=== PATIENT | female | born 1940 | race Caucasian/White ===

== ENCOUNTER → 2016-12-09 | Outpatient (REF) | payer MEDICARE, OTHER ==
[~2016-12-09] MED LIST: ALLO10TA PO; CALC600T7 PO; LISI10TA2 PO; LOVA10TA PO; METO-207 PO; MULTCAP PO; NEUR600T PO; PROTPAK PO; TYLE325T5 PO; ULTR50TA PO; [UNRECOGNIZED DRUG - OTHER] PO
[2016-12-09 12:28] LABS: MEAN CORPUSCULAR HEMOGLOBIN 33.8 pg (27.0-33.0); MEAN CORPUSCULAR HGB CONC 34.6 g/dl (32.0-36.5); MEAN CORPUSCULAR VOLUME 97.5 fl (80.0-96.0); RED CELL DISTRIBUTION WIDTH 12.6 % (11.5-14.5); WHITE BLOOD COUNT 8.6 K/mm3 (4.0-10.0)
[2016-12-09 12:54] LABS: ALBUMIN 3.8 GM/DL (3.2-5.2); ALBUMIN/GLOBULIN RATIO 1.23 (1.00-1.93); BILIRUBIN,TOTAL 0.4 MG/DL (0.2-1.0); CALCIUM LEVEL 9.7 MG/DL (8.8-10.2); CREATININE FOR GFR 1.94 MG/DL (0.55-1.02); GLOMERULAR FILTRATION RATE 26.6 (>39); POTASSIUM SERUM 4.9 MEQ/L (3.5-5.1); TOTAL PROTEIN 6.9 GM/DL (6.4-8.2)
== END ==
LOC: M SFHCPLAZ 08:03
PROVIDERS: ATTEND Internal Medicine
DX: R06.09 Other forms of dyspnea (principal); I10 Essential (primary) hypertension; E11.40 Type 2 diabetes mellitus with diabetic neuropathy, unspecified; E78.00 Pure hypercholesterolemia, unspecified

== ENCOUNTER → 2017-01-25 | Outpatient (CLI) | payer MEDICARE, OTHER ==
[~2017-01-25] MED LIST changes: -METO-207 PO; +METO1TAB7 PO; -ULTR50TA PO; +ULTR50TA8 PO
--- NOTE | 2017-01-25 11:12 | REP ---
LEFT KNEE SERIES: Five views. HISTORY: Medial knee pain for 4 days. No known injury. Question sprain. FINDINGS: There is mild patellofemoral and medial compartment osteoarthritic spurring. There is also nonarticular spurring at the superior pole of the patella at the quadriceps tendon insertion. No acute bony abnormality is seen. IMPRESSION: Medial and patellofemoral osteoarthritis. Nonarticular patellar spurring at the quadriceps tendon insertion. No acute bony abnormality. Signed by Campos Galeana MD 01/25/2017 04:02 P
== END ==
LOC: M WUC 10:36
PROVIDERS: ATTEND Physician Assistant
DX: M17.12 Unilateral primary osteoarthritis, left knee (principal); M25.762 Osteophyte, left knee

== ENCOUNTER → 2017-04-18 | Outpatient (REF) | payer MEDICARE, OTHER ==
[2017-04-18 12:57] LABS: ALBUMIN 4.1 GM/DL (3.2-5.2); ALBUMIN/GLOBULIN RATIO 1.24 (1.00-1.93); BILIRUBIN,TOTAL 0.4 MG/DL (0.2-1.0); CALCIUM LEVEL 10.5 MG/DL (8.8-10.2); CREATININE FOR GFR 2.32 MG/DL (0.55-1.02); GLOMERULAR FILTRATION RATE 21.7 (>39); POTASSIUM SERUM 5.1 MEQ/L (3.5-5.1); TOTAL PROTEIN 7.4 GM/DL (6.4-8.2); URIC ACID 7.5 MG/DL (2.6-6.0)
== END ==
LOC: M SFHCPLAZ 08:52
PROVIDERS: ATTEND Internal Medicine
DX: E11.40 Type 2 diabetes mellitus with diabetic neuropathy, unspecified (principal); E78.00 Pure hypercholesterolemia, unspecified; M10.9 Gout, unspecified

== ENCOUNTER → 2017-06-13 | Outpatient (REF) | payer MEDICARE, OTHER ==
[2017-06-13 14:36] LABS: CREATININE FOR GFR 2.11 MG/DL (0.55-1.02); GLOMERULAR FILTRATION RATE 24.2 (>39); POTASSIUM SERUM 4.8 MEQ/L (3.5-5.1)
== END ==
LOC: M SFHCPLAZ 11:23
PROVIDERS: ATTEND Internal Medicine
DX: N18.3 Chronic kidney disease, stage 3 (moderate) (principal)

== ENCOUNTER → 2017-09-21 | Outpatient (REF) | payer MEDICARE, OTHER ==
[2017-09-21 17:44] LABS: HEMATOCRIT 36.8 % (36.0-47.0); HEMOGLOBIN 12.5 g/dl (12.0-16.0); MEAN CORPUSCULAR HEMOGLOBIN 32.8 pg (27.0-33.0); MEAN CORPUSCULAR VOLUME 96.6 fl (80.0-96.0); PLATELET COUNT, AUTOMATED 254 10^3/uL (150-450); RED BLOOD COUNT 3.81 10^6/uL (4.00-5.40); WHITE BLOOD COUNT 8.9 10^3/uL (4.0-10.0)
[2017-09-21 18:01] LABS: ESTIMATED AVERAGE GLUCOSE 140 MG/DL (60-110); HEMOGLOBIN A1c 6.5 %; PTH INTACT 109.4 PG/ML (18.5-88.0)
[2017-09-21 21:01] LABS: ALBUMIN 4.1 GM/DL (3.2-5.2); ALBUMIN/GLOBULIN RATIO 1.32 (1.00-1.93); ALKALINE PHOSPHATASE 93 U/L (45-117); ALT/SGPT 38 U/L (12-78); ANION GAP 10 MEQ/L (8-16); AST/SGOT 44 U/L (7-37); BILIRUBIN,TOTAL 0.4 MG/DL (0.2-1.0); BLOOD UREA NITROGEN 36 MG/DL (7-18); CALCIUM LEVEL 9.3 MG/DL (8.8-10.2); CARBON DIOXIDE LEVEL 25 MEQ/L (21-32); CHLORIDE LEVEL 108 MEQ/L (98-107); CHOLESTEROL LEVEL 208 MG/DL (<200); CHOLESTEROL RISK RATIO 6.303 (<5); CREATININE FOR GFR 2.05 MG/DL (0.55-1.30); GLOMERULAR FILTRATION RATE 24.9 (>39); GLUCOSE, FASTING 142 MG/DL (70-100); HDL CHOLESTEROL 33 MG/DL (>40); MAGNESIUM LEVEL 2.1 MG/DL (1.8-2.4); NON-HDL-C 175 MG/DL; SODIUM LEVEL 143 MEQ/L (136-145); TOTAL PROTEIN 7.2 GM/DL (6.4-8.2); TRIGLYCERIDES LEVEL 444 MG/DL (<150)
[2017-09-21 21:08] LABS: POTASSIUM SERUM 5.3 MEQ/L (3.5-5.1)
== END ==
LOC: M SFHCPLAZ 12:00
DX: N18.3 Chronic kidney disease, stage 3 (moderate) (principal); G62.9 Polyneuropathy, unspecified; I12.9 Hypertensive chronic kidney disease with stage 1 through stage 4 chronic kidney disease, or unspecified chronic kidney disease; E11.40 Type 2 diabetes mellitus with diabetic neuropathy, unspecified; E78.00 Pure hypercholesterolemia, unspecified
CPT/HCPCS: 83735

== ENCOUNTER → 2017-10-26 | Outpatient (CLI) | payer MEDICARE, OTHER ==
[~2017-10-26] MED LIST changes: -ALLO10TA PO; -CALC600T7 PO; +HEPARIN 1,000 UNITS/ML 10ML VIAL (FOR RADIOLOGY& DIALYSIS ONLY) As Ordered; +ISOVUE-300 61% 50ML VIAL (Q9967) As Ordered; +LIDOCAINE 2% MDV 20 ML VIAL As Ordered; -LISI10TA2 PO; -LOVA10TA PO; -METO1TAB7 PO; +MIDAZOLAM INJ 2 MG/2 ML VIAL (J2250) As Ordered; -MULTCAP PO; -NEUR600T PO; -PROTPAK PO; -TYLE325T5 PO; -ULTR50TA8 PO; -[UNRECOGNIZED DRUG - OTHER] PO; +fentaNYL 100 MCG/2 ML INJECTION (J3010) As Ordered
== END | disposition home or self-care (01) ==
LOC: M IRPRO 07:25
DX: L97.519 Non-pressure chronic ulcer of other part of right foot with unspecified severity (principal); E11.22 Type 2 diabetes mellitus with diabetic chronic kidney disease; I12.9 Hypertensive chronic kidney disease with stage 1 through stage 4 chronic kidney disease, or unspecified chronic kidney disease; N18.9 Chronic kidney disease, unspecified
CPT/HCPCS: 36247

== ENCOUNTER 2017-11-09 16:36 | Observation (INO) | payer MEDICARE, OTHER ==
[2017-11-09 19:26] LABS: BASO # 0.1 10^3/uL (0.0-0.2); BASO % 0.4 % (0.0-1.0); EOS # 0.1 10^3/uL (0.0-0.50); EOS % 0.5 % (0.0-3.0); HEMATOCRIT 33.2 % (36.0-47.0); HEMOGLOBIN 11.8 g/dl (12.0-15.5); IMMATURE GRANULOCYTE % 0.5 % (0-3.0); LYMPH # 1.5 10^3/uL (1.5-4.5); MEAN CORPUSCULAR HEMOGLOBIN 34.1 pg (27.0-33.0); MEAN CORPUSCULAR HGB CONC 35.5 g/dl (32.0-36.5); MONO # 0.9 10^3/uL (0.0-0.8); MONO % 7.4 % (0.0-5.0); NEUTROPHILS # 9.6 10^3/uL (1.8-7.7); NEUTROPHILS % 79.2 % (36.0-66.0); PLATELET COUNT, AUTOMATED 249 10^3/uL (150-450); RED BLOOD COUNT 3.46 10^6/uL (4.00-5.40); RED CELL DISTRIBUTION WIDTH 12.9 % (11.5-14.5); WHITE BLOOD COUNT 12.1 10^3/uL (4.0-10.0)
[2017-11-09 19:39] LABS: ALBUMIN 3.6 GM/DL (3.2-5.2); ALBUMIN/GLOBULIN RATIO 0.95 (1.00-1.93); ALKALINE PHOSPHATASE 91 U/L (45-117); ALT/SGPT 30 U/L (12-78); ANION GAP 7 MEQ/L (8-16); AST/SGOT 30 U/L (7-37); BILIRUBIN,DIRECT < 0.1 MG/DL (0.0-0.2); BILIRUBIN,TOTAL 0.3 MG/DL (0.2-1.0); BLOOD UREA NITROGEN 55 MG/DL (7-18); CALCIUM LEVEL 8.9 MG/DL (8.8-10.2); CARBON DIOXIDE LEVEL 24 MEQ/L (21-32); CHLORIDE LEVEL 107 MEQ/L (98-107); CK-MB VALUE MASS 1.6 NG/ML (<3.6); CPK CREATINE PHOSPHOKINASE 75 U/L (26-192); CREATININE FOR GFR 2.66 MG/DL (0.55-1.30); GLOMERULAR FILTRATION RATE 18.5 (>39); GLUCOSE, FASTING 181 MG/DL (70-100); MB/CK RELATIVE INDEX 2.13 (< OR =4); POTASSIUM SERUM 4.4 MEQ/L (3.5-5.1); SODIUM LEVEL 138 MEQ/L (136-145); TOTAL PROTEIN 7.4 GM/DL (6.4-8.2); TROPONIN I < 0.02 NG/ML (< 0.10)
[2017-11-09] MEDS: NS 500 ML IV ×2 (19:54)
[2017-11-09] MEDS: LORazepam 0.5 MG TAB PO ×2 (21:28)
[2017-11-09] MEDS ORDERED: ONDANSETRON 4MG/2ML VIAL (J2405) IV ×2 (22:15)
[2017-11-09] MEDS: NS 1,000 ML IV ×2 (23:33)
[2017-11-10 00:01] LABS: CPK CREATINE PHOSPHOKINASE 82 U/L (26-192); TROPONIN I < 0.02 NG/ML (< 0.10)
[2017-11-10 00:07] LABS: CK-MB VALUE MASS 1.6 NG/ML (<3.6); MB/CK RELATIVE INDEX 1.95 (< OR =4)
[2017-11-10 06:22] LABS: BASO % 0.4 % (0.0-1.0); EOS # 0.2 10^3/uL (0.0-0.50); EOS % 2.3 % (0.0-3.0); HEMATOCRIT 27.7 % (36.0-47.0); IMMATURE GRANULOCYTE % 0.2 % (0-3.0); LYMPH # 2.3 10^3/uL (1.5-4.5); LYMPH % 27.5 % (24.0-44.0); MEAN CORPUSCULAR HEMOGLOBIN 33.2 pg (27.0-33.0); MEAN CORPUSCULAR HGB CONC 34.7 g/dl (32.0-36.5); MEAN CORPUSCULAR VOLUME 95.8 fl (80.0-96.0); MONO # 0.9 10^3/uL (0.0-0.8); MONO % 10.2 % (0.0-5.0); NEUTROPHILS % 59.4 % (36.0-66.0); PLATELET COUNT, AUTOMATED 196 10^3/uL (150-450); RED BLOOD COUNT 2.89 10^6/uL (4.00-5.40); RED CELL DISTRIBUTION WIDTH 12.6 % (11.5-14.5); WHITE BLOOD COUNT 8.3 10^3/uL (4.0-10.0)
[2017-11-10 06:33] LABS: HEMOGLOBIN 9.6 g/dl (12.0-15.5)
[2017-11-10 06:36] LABS: ANION GAP 8 MEQ/L (8-16); BLOOD UREA NITROGEN 52 MG/DL (7-18); CALCIUM LEVEL 8.6 MG/DL (8.8-10.2); CARBON DIOXIDE LEVEL 22 MEQ/L (21-32); CHLORIDE LEVEL 111 MEQ/L (98-107); CK-MB VALUE MASS 2.4 NG/ML (<3.6); CPK CREATINE PHOSPHOKINASE 161 U/L (26-192); CREATININE FOR GFR 2.18 MG/DL (0.55-1.30); GLOMERULAR FILTRATION RATE 23.2 (>39); GLUCOSE, FASTING 95 MG/DL (70-100); MB/CK RELATIVE INDEX 1.49 (< OR =4); POTASSIUM SERUM 4.2 MEQ/L (3.5-5.1); SODIUM LEVEL 141 MEQ/L (136-145); TROPONIN I < 0.02 NG/ML (< 0.10)
[2017-11-10] MEDS ORDERED: DICYCLOMINE 10 MG CAP PO ×2 (07:45)
[2017-11-10] MEDS: LACTOBACILLUS ACIDOPHILUS CAP (BACID) PO ×2 (09:50)
[2017-11-10] MEDS: CitaloPRAM (CeleXA) 20 MG TAB PO ×2 (09:50)
[2017-11-10] MEDS: GABAPENTIN 400 MG CAP PO ×4 (09:50→21:20)
[2017-11-10] MEDS: ALLOPURINOL 100 MG TAB PO ×2 (09:51)
[2017-11-10] MEDS: PANTOPRAZOLE 40MG TAB (PROTONIX) PO ×2 (09:51)
[2017-11-10] MEDS: METOPROLOL SUCC (TopROL XL) 50MG **XL** TAB PO ×2 (09:51)
[2017-11-10] MEDS: MAGNESIUM OXIDE 400 MG TAB (MAG-OX) PO ×2 (09:51)
[2017-11-10] MEDS: HEPARIN SOD (PORCINE) 5000 UNITS/ML VIAL SC ×4 (09:51→21:21)
[2017-11-10] MEDS: CYANOCOBALAMIN 500 MCG TAB PO ×2 (09:51)
[2017-11-10] MEDS: ATORVASTATIN 20 MG TAB PO ×2 (09:51)
[2017-11-10] MEDS: NS 1,000 ML IV ×4 (11:35→21:22)
[2017-11-10] MEDS: LATANOPROST 0.005% OPHTH SOLN 2.5 ML OU ×2 (21:21)
[2017-11-10 22:04] LABS: APPEARANCE, URINE HAZY (CLEAR); BACTERIA, URINE AUTO 1+ (NEGATIVE); BILIRUBIN, URINE AUTO NEGATIVE (NEGATIVE); BLOOD, URINE BLOOD NEGATIVE (NEGATIVE); COLOR, URINE YELLOW (YELLOW); GLUCOSE, URINE (UA) AUTO NEGATIVE (NEGATIVE); KETONE, URINE AUTO NEGATIVE (NEGATIVE); LEUKOCYTE ESTERASE, URINE AUTO 3+ (NEGATIVE); MUCUS, URINE SMALL (NEGATIVE); NITRITE, URINE AUTO NEGATIVE (NEGATIVE); PROTEIN, URINE AUTO NEGATIVE (NEGATIVE); RBC, URINE AUTO 2 /HPF (0-3); SPECIFIC GRAVITY URINE AUTO 1.009 (1.002-1.035); SQUAMOUS EPITHELIAL CELL UR AU 1 /HPF (0-6); UROBILINOGEN, URINE AUTO 0.2 mg/dL (0.0-2.0); WBC, URINE AUTO 37 /HPF (0-3)
[2017-11-11 05:58] LABS: BASO % 0.4 % (0.0-1.0); EOS # 0.2 10^3/uL (0.0-0.50); EOS % 2.8 % (0.0-3.0); HEMATOCRIT 27.7 % (36.0-47.0); HEMOGLOBIN 9.6 g/dl (12.0-15.5); IMMATURE GRANULOCYTE % 0.4 % (0-3.0); LYMPH # 1.7 10^3/uL (1.5-4.5); LYMPH % 29.2 % (24.0-44.0); MEAN CORPUSCULAR HGB CONC 34.7 g/dl (32.0-36.5); MEAN CORPUSCULAR VOLUME 95.2 fl (80.0-96.0); MONO # 0.6 10^3/uL (0.0-0.8); MONO % 11.2 % (0.0-5.0); NEUTROPHILS # 3.2 10^3/uL (1.8-7.7); PLATELET COUNT, AUTOMATED 179 10^3/uL (150-450); RED BLOOD COUNT 2.91 10^6/uL (4.00-5.40); RED CELL DISTRIBUTION WIDTH 12.6 % (11.5-14.5); WHITE BLOOD COUNT 5.7 10^3/uL (4.0-10.0)
[2017-11-11 06:26] LABS: ANION GAP 7 MEQ/L (8-16); BLOOD UREA NITROGEN 36 MG/DL (7-18); CALCIUM LEVEL 8.7 MG/DL (8.8-10.2); CARBON DIOXIDE LEVEL 22 MEQ/L (21-32); CHLORIDE LEVEL 114 MEQ/L (98-107); CREATININE FOR GFR 1.72 MG/DL (0.55-1.30); GLOMERULAR FILTRATION RATE 30.5 (>39); GLUCOSE, FASTING 93 MG/DL (70-100); POTASSIUM SERUM 4.2 MEQ/L (3.5-5.1); SODIUM LEVEL 143 MEQ/L (136-145)
[2017-11-11] MEDS: CYANOCOBALAMIN 500 MCG TAB PO ×2 (09:33)
[2017-11-11] MEDS: ATORVASTATIN 20 MG TAB PO ×2 (09:33)
[2017-11-11] MEDS: LACTOBACILLUS ACIDOPHILUS CAP (BACID) PO ×2 (09:34)
[2017-11-11] MEDS: PANTOPRAZOLE 40MG TAB (PROTONIX) PO ×2 (09:34)
[2017-11-11] MEDS: CitaloPRAM (CeleXA) 20 MG TAB PO ×2 (09:34)
[2017-11-11] MEDS: MAGNESIUM OXIDE 400 MG TAB (MAG-OX) PO ×2 (09:34)
[2017-11-11] MEDS: GABAPENTIN 400 MG CAP PO ×2 (09:34)
[2017-11-11] MEDS: ALLOPURINOL 100 MG TAB PO ×2 (09:34)
[2017-11-11] MEDS: HEPARIN SOD (PORCINE) 5000 UNITS/ML VIAL SC ×2 (09:35)
== END 2017-11-11 12:05 | disposition home or self-care (01) ==
LOC: M MSPAV 11-10 01:30 → M ED 16:36 → M ED INP 22:04
DX: I95.1 Orthostatic hypotension (principal); E86.0 Dehydration; N17.9 Acute kidney failure, unspecified; N18.4 Chronic kidney disease, stage 4 (severe); I12.9 Hypertensive chronic kidney disease with stage 1 through stage 4 chronic kidney disease, or unspecified chronic kidney disease; R00.1 Bradycardia, unspecified; R26.89 Other abnormalities of gait and mobility; E78.4 Other hyperlipidemia; M10.9 Gout, unspecified; K58.8 Other irritable bowel syndrome; I73.9 Peripheral vascular disease, unspecified; G90.09 Other idiopathic peripheral autonomic neuropathy; K21.9 Gastro-esophageal reflux disease without esophagitis; F41.9 Anxiety disorder, unspecified; F32.9 Major depressive disorder, single episode, unspecified; K57.30 Diverticulosis of large intestine without perforation or abscess without bleeding; Z79.899 Other long term (current) drug therapy; Z88.2 Allergy status to sulfonamides; Z88.8 Allergy status to other drugs, medicaments and biological substances; F17.210 Nicotine dependence, cigarettes, uncomplicated
CPT/HCPCS: 71046

== ENCOUNTER → 2017-11-21 | Outpatient (REF) | payer MEDICARE, OTHER ==
[2017-11-21 15:59] LABS: APPEARANCE, URINE MANUAL HAZY (CLEAR)
[2017-11-21 16:00] LABS: BILIRUBIN, URINE MANUAL NEGATIVE (NEGATIVE); BLOOD URINE MANUAL TRACE (NEGATIVE); COLOR, URINE MANUAL YELLOW (YELLOW); GLUCOSE, URINE (UA) MANUAL TRACE(50 MG/DL) mg/dL (NEGATIVE); KETONE, URINE MANUAL NEGATIVE (NEGATIVE); LEUKOCYTE ESTERASE, URINE MAN POSITIVE (NEGATIVE); MICROSCOPIC INDICATED? MAN YES (NO); NITRITE, URINE MANUAL NEGATIVE (NEGATIVE); PROTEIN, URINE MANUAL NEGATIVE (NEGATIVE); SPECIFIC GRAVITY,URINE MANUAL 1.025 (1.002-1.035); UROBILINOGEN, URINE MANUAL NORMAL (NORMAL)
[2017-11-21 16:01] LABS: HEMATOCRIT 31.2 % (36.0-47.0); HEMOGLOBIN 10.9 g/dl (12.0-15.5); MEAN CORPUSCULAR HEMOGLOBIN 33.1 pg (27.0-33.0); MEAN CORPUSCULAR HGB CONC 34.9 g/dl (32.0-36.5); MEAN CORPUSCULAR VOLUME 94.8 fl (80.0-96.0); PLATELET COUNT, AUTOMATED 243 10^3/uL (150-450); RBC, URINE 0-1 /hpf (0-3); RED BLOOD COUNT 3.29 10^6/uL (4.00-5.40); RED CELL DISTRIBUTION WIDTH 13.3 % (11.5-14.5); SQUAMOUS EPITHELIAL CELL URINE SMALL AMOUNT /hpf (SMALL AMT); WHITE BLOOD COUNT 8.7 10^3/uL (4.0-10.0)
[2017-11-21 16:02] LABS: BACTERIA, URINE LARGE AMOUNT; CALCIUM OXALATE CRYSTALS,URINE SMALL AMOUNT /hpf; HYALINE CAST, URINE NONE SEEN /lpf (0-1); MICROSCOPIC EXAM PERFORMED
[2017-11-21 16:17] LABS: ANION GAP 10 MEQ/L (8-16); BLOOD UREA NITROGEN 20 MG/DL (7-18); CALCIUM LEVEL 9.6 MG/DL (8.8-10.2); CARBON DIOXIDE LEVEL 23 MEQ/L (21-32); CHLORIDE LEVEL 110 MEQ/L (98-107); CREATININE FOR GFR 1.75 MG/DL (0.55-1.30); GLOMERULAR FILTRATION RATE 29.9 (>39); GLUCOSE, FASTING 115 MG/DL (70-100); POTASSIUM SERUM 4.3 MEQ/L (3.5-5.1); SODIUM LEVEL 143 MEQ/L (136-145)
== END ==
LOC: M SFHCPLAZ 13:22
DX: Z87.448 Personal history of other diseases of urinary system (principal); Z79.899 Other long term (current) drug therapy
CPT/HCPCS: 80048

== ENCOUNTER → 2017-11-23 | Outpatient (REF) | payer MEDICARE, OTHER | LOC: M SFHCPLAZ 12:22 | DX: R10.9 Unspecified abdominal pain (principal) | CPT/HCPCS: 87186 ==

== ENCOUNTER 2017-11-26 08:58 | Emergency (ER) | payer MEDICARE, OTHER ==
[2017-11-26] MEDS: NORCO, ANEXSIA 5/325MG TABLET (HYDROcodone/ACETAMINOPHEN) PO (09:54)
[2017-11-26 10:01] LABS: BASO % 0.2 % (0.0-1.0); EOS % 0.2 % (0.0-3.0); HEMATOCRIT 32.8 % (36.0-47.0); HEMOGLOBIN 11.8 g/dl (12.0-15.5); IMMATURE GRANULOCYTE % 0.4 % (0-3.0); LYMPH % 8.6 % (24.0-44.0); MEAN CORPUSCULAR HEMOGLOBIN 33.3 pg (27.0-33.0); MEAN CORPUSCULAR VOLUME 92.7 fl (80.0-96.0); MONO # 0.6 10^3/uL (0.0-0.8); MONO % 5.3 % (0.0-5.0); NEUTROPHILS # 9.4 10^3/uL (1.8-7.7); NEUTROPHILS % 85.3 % (36.0-66.0); PLATELET COUNT, AUTOMATED 247 10^3/uL (150-450); RED BLOOD COUNT 3.54 10^6/uL (4.00-5.40); RED CELL DISTRIBUTION WIDTH 13.1 % (11.5-14.5)
[2017-11-26 10:06] LABS: AMORPHOUS SEDIMENT RFX SMALL (NEGATIVE); KETONE, URINE AUTO RFX TRACE mg/dL (NEGATIVE); MUCUS, URINE RFX SMALL (NEGATIVE); NITRITE, URINE AUTO RFX NEGATIVE (NEGATIVE); RBC, URINE AUTO RFX 2 /HPF (0-3); SPECIFIC GRAVITY UR AUTO RFX 1.017 (1.002-1.035); SQUAM EPITHELIAL CELL UR AURFX 2 /HPF (0-6); WBC, URINE AUTO RFX 1 /HPF (0-3)
[2017-11-26 10:17] LABS: LEUKOCYTE ESTERASE UR AUTO RFX 1+ (NEGATIVE)
[2017-11-26 10:24] LABS: ANION GAP 12 MEQ/L (8-16); BLOOD UREA NITROGEN 27 MG/DL (7-18); CALCIUM LEVEL 9.2 MG/DL (8.8-10.2); CARBON DIOXIDE LEVEL 20 MEQ/L (21-32); CHLORIDE LEVEL 108 MEQ/L (98-107); CREATININE FOR GFR 1.71 MG/DL (0.55-1.30); GLOMERULAR FILTRATION RATE 30.7 (>39); GLUCOSE, FASTING 140 MG/DL (70-100); POTASSIUM SERUM 4.2 MEQ/L (3.5-5.1); SODIUM LEVEL 140 MEQ/L (136-145)
[2017-11-26] MEDS ORDERED: KETOROLAC 30 MG/ML VIAL (J1885) IV (11:45)
== END 2017-11-26 12:00 | disposition home or self-care (01) ==
LOC: M ED 08:58
DX: R10.9 Unspecified abdominal pain (principal); N28.1 Cyst of kidney, acquired; N20.0 Calculus of kidney; Z87.440 Personal history of urinary (tract) infections; G62.9 Polyneuropathy, unspecified; K58.9 Irritable bowel syndrome, unspecified; N18.4 Chronic kidney disease, stage 4 (severe); K57.90 Diverticulosis of intestine, part unspecified, without perforation or abscess without bleeding; Z72.0 Tobacco use; Z79.82 Long term (current) use of aspirin; Z79.899 Other long term (current) drug therapy; Z88.5 Allergy status to narcotic agent; Z88.2 Allergy status to sulfonamides; Z88.8 Allergy status to other drugs, medicaments and biological substances

== ENCOUNTER 2017-11-28 11:30 | Inpatient (IN) | payer MEDICARE, OTHER ==
[2017-11-28 11:11] LABS: BASO % 0.4 % (0.0-1.0); EOS % 0.3 % (0.0-3.0); HEMATOCRIT 32.2 % (36.0-47.0); HEMOGLOBIN 11.5 g/dl (12.0-15.5); IMMATURE GRANULOCYTE % 0.5 % (0-3.0); LYMPH % 10.3 % (24.0-44.0); MEAN CORPUSCULAR HEMOGLOBIN 33.5 pg (27.0-33.0); MEAN CORPUSCULAR HGB CONC 35.7 g/dl (32.0-36.5); MEAN CORPUSCULAR VOLUME 93.9 fl (80.0-96.0); MONO # 0.5 10^3/uL (0.0-0.8); MONO % 5.4 % (0.0-5.0); NEUTROPHILS # 7.6 10^3/uL (1.8-7.7); NEUTROPHILS % 83.1 % (36.0-66.0); PLATELET COUNT, AUTOMATED 223 10^3/uL (150-450); RED BLOOD COUNT 3.43 10^6/uL (4.00-5.40); RED CELL DISTRIBUTION WIDTH 13.2 % (11.5-14.5); WHITE BLOOD COUNT 9.2 10^3/uL (4.0-10.0)
[2017-11-28 11:31] LABS: ALT/SGPT 32 U/L (12-78); ANION GAP 11 MEQ/L (8-16); AST/SGOT 45 U/L (7-37); BLOOD UREA NITROGEN 27 MG/DL (7-18); CALCIUM LEVEL 9.3 MG/DL (8.8-10.2); CARBON DIOXIDE LEVEL 19 MEQ/L (21-32); CHLORIDE LEVEL 109 MEQ/L (98-107); GLUCOSE, FASTING 152 MG/DL (70-100); POTASSIUM SERUM 4.2 MEQ/L (3.5-5.1); SODIUM LEVEL 139 MEQ/L (136-145)
[2017-11-28 11:32] LABS: ALBUMIN 3.8 GM/DL (3.2-5.2); ALBUMIN/GLOBULIN RATIO 1.06 (1.00-1.93); ALKALINE PHOSPHATASE 89 U/L (45-117); AMYLASE 40 U/L (25-115); BILIRUBIN,DIRECT 0.1 MG/DL (0.0-0.2); BILIRUBIN,TOTAL 0.6 MG/DL (0.2-1.0); CPK CREATINE PHOSPHOKINASE 201 U/L (26-192); LIPASE 417 U/L (73-393); SALICYLATE LEVEL 5.1 MG/DL (5.0-30.0); TOTAL PROTEIN 7.4 GM/DL (6.4-8.2); TROPONIN I < 0.02 NG/ML (< 0.10)
[2017-11-28 11:41] LABS: CK-MB VALUE MASS 2.2 NG/ML (<3.6); MB/CK RELATIVE INDEX 1.09 (< OR =4); POS COUNT POS FLAG
[2017-11-28 11:48] LABS: ACETAMINOPHEN LEVEL < 2.0 UG/ML (10.0-30.0); ETHYL ALCOHOL (ETHANOL) < 0.003 % (0.000-0.010)
[2017-11-28] MEDS: NS 500 ML IV (11:49)
[2017-11-28 11:57] LABS: ABG BASE EXCESS -0.3 (-2.0-2.0); ABG HCO3 22.4 MEQ/L (22.0-26.0); ABG O2 SATURATION 96.5 % (95.0-99.0); ABG PARTIAL PRESSURE CO2 30.6 mmHg (35.0-45.0); ABG PARTIAL PRESSURE O2 83.1 mmHg (75.0-100.0); ABG STANDARD HCO3 24.2 MEQ/L (22.0-26.0); ABG TOTAL CO2 23.3 MEQ/L (23.0-31.0); ABG pH (ARTERIAL) 7.482 UNITS (7.350-7.450)
[2017-11-28 12:29] LABS: AMPHETAMINES LEVEL URINE NEGATIVE (NEGATIVE); BARBITURATES URINE NEGATIVE (NEGATIVE); BENZODIAZEPINES URINE NEGATIVE (NEGATIVE); CANNABINOIDS URINE NEGATIVE (NEGATIVE); COCAINE METABOLITE URINE NEGATIVE (NEGATIVE); METHADONE URINE NEGATIVE (NEGATIVE); OPIATES URINE NEGATIVE (NEGATIVE); PHENCYCLIDINE URINE NEGATIVE (NEGATIVE)
[2017-11-28 12:42] LABS: AMMONIA 36 uMOL/L (<32)
[2017-11-28 13:12] LABS: APPEARANCE, URINE MANUAL CLEAR (CLEAR); COLOR, URINE MANUAL YELLOW (YELLOW)
[2017-11-28 13:13] LABS: BILIRUBIN, URINE MANUAL NEGATIVE (NEGATIVE); BLOOD URINE MANUAL NEGATIVE (NEGATIVE); GLUCOSE, URINE (UA) MANUAL NEGATIVE (NEGATIVE); KETONE, URINE MANUAL 2+ mg/dL (NEGATIVE); LEUKOCYTE ESTERASE, URINE MAN POSITIVE (NEGATIVE); MICROSCOPIC INDICATED? MAN YES (NO); NITRITE, URINE MANUAL NEGATIVE (NEGATIVE); PROTEIN, URINE MANUAL TRACE mg/dL (NEGATIVE); SPECIFIC GRAVITY,URINE MANUAL 1.015 (1.002-1.035); UROBILINOGEN, URINE MANUAL NORMAL (NORMAL)
[2017-11-28 13:39] LABS: BACTERIA, URINE SMALL AMOUNT; HYALINE CAST, URINE 0-1 /lpf (0-1); RBC, URINE NONE SEEN /hpf (0-3); SQUAMOUS EPITHELIAL CELL URINE SMALL AMOUNT /hpf (SMALL AMT)
[2017-11-28 13:40] LABS: MICROSCOPIC EXAM PERFORMED
[2017-11-28] MEDS: NS 1,000 ML IV (13:45)
[2017-11-28] MEDS ORDERED: DEXTROSE 50% 50 ML SYRINGE IV (16:15)
[2017-11-28] MEDS ORDERED: GLUCOSE 4 GM CHEW TABLET PO (16:15)
[2017-11-28] MEDS ORDERED: GLUCAGON FOR INJ 1 MG VIAL (J1610) SC (16:15)
[2017-11-28] MEDS: ONDANSETRON 4MG/2ML VIAL (J2405) IV (16:46)
[2017-11-28] MEDS: cefTRIAXone SOD 1 GM in D5W MINI-BAG PLUS 50 ML IV (16:46)
[2017-11-28] MEDS: HumaLOG INSULIN (NovoLOG) PER UNIT SC ×2 (17:30→20:44)
[2017-11-28 20:40] LABS: BEDSIDE GLUCOSE 121 MG/DL (83-110)
[2017-11-28 20:40] LABS: BEDSIDE GLUCOSE 178 MG/DL (83-110)
[2017-11-28 20:41] LABS: BEDSIDE GLUCOSE 116 MG/DL (83-110)
[2017-11-28] MEDS: amLODIPine 5 MG TAB PO (21:08)
[2017-11-28] MEDS: HEPARIN SOD (PORCINE) 5000 UNITS/ML VIAL SC (21:09)
[2017-11-28] MEDS: GABAPENTIN 300 MG CAP PO (21:09)
[2017-11-28] MEDS: **hydrALAZINE** 10 MG TAB PO (22:00)
[2017-11-28] MEDS: ACETAMINOPHEN TAB 650MG DOSE (2X325MG) PO (23:13)
[2017-11-29] MEDS: **hydrALAZINE** 10 MG TAB PO ×3 (04:52→21:08)
[2017-11-29] MEDS: HEPARIN SOD (PORCINE) 5000 UNITS/ML VIAL SC ×3 (05:19→21:08)
[2017-11-29 07:05] LABS: HEMATOCRIT 30.1 % (36.0-47.0); HEMOGLOBIN 10.2 g/dl (12.0-15.5); MEAN CORPUSCULAR HEMOGLOBIN 32.7 pg (27.0-33.0); MEAN CORPUSCULAR HGB CONC 33.9 g/dl (32.0-36.5); MEAN CORPUSCULAR VOLUME 96.5 fl (80.0-96.0); PLATELET COUNT, AUTOMATED 210 10^3/uL (150-450); RED BLOOD COUNT 3.12 10^6/uL (4.00-5.40); RED CELL DISTRIBUTION WIDTH 13.5 % (11.5-14.5); WHITE BLOOD COUNT 5.9 10^3/uL (4.0-10.0)
[2017-11-29 07:23] LABS: ALBUMIN 3.4 GM/DL (3.2-5.2); ALBUMIN/GLOBULIN RATIO 1.21 (1.00-1.93); ALKALINE PHOSPHATASE 79 U/L (45-117); ALT/SGPT 26 U/L (12-78); ANION GAP 6 MEQ/L (8-16); AST/SGOT 30 U/L (7-37); BILIRUBIN,TOTAL 0.3 MG/DL (0.2-1.0); BLOOD UREA NITROGEN 24 MG/DL (7-18); CALCIUM LEVEL 8.6 MG/DL (8.8-10.2); CARBON DIOXIDE LEVEL 25 MEQ/L (21-32); CHLORIDE LEVEL 112 MEQ/L (98-107); CREATININE FOR GFR 1.52 MG/DL (0.55-1.30); GLOMERULAR FILTRATION RATE 35.2 (>39); GLUCOSE, FASTING 97 MG/DL (70-100); MAGNESIUM LEVEL 1.9 MG/DL (1.8-2.4); POTASSIUM SERUM 4.5 MEQ/L (3.5-5.1); SODIUM LEVEL 143 MEQ/L (136-145); TOTAL PROTEIN 6.2 GM/DL (6.4-8.2)
[2017-11-29] MEDS: HumaLOG INSULIN (NovoLOG) PER UNIT SC ×4 (07:30→20:11)
[2017-11-29] MEDS: LACTOBACILLUS ACIDOPHILUS CAP (BACID) PO (08:07)
[2017-11-29] MEDS: ALLOPURINOL 100 MG TAB PO (08:09)
[2017-11-29] MEDS: ASPIRIN 81 MG ENTERIC TAB PO (08:09)
[2017-11-29] MEDS: ATORVASTATIN 20 MG TAB PO (08:10)
[2017-11-29] MEDS: CitaloPRAM (CeleXA) 20 MG TAB PO (08:11)
[2017-11-29] MEDS: PANTOPRAZOLE 40MG TAB (PROTONIX) PO (08:11)
[2017-11-29] MEDS: GABAPENTIN 300 MG CAP PO ×2 (08:11→21:07)
[2017-11-29 11:31] LABS: BEDSIDE GLUCOSE 125 MG/DL (83-110)
[2017-11-29] MEDS: ACETAMINOPHEN TAB 650MG DOSE (2X325MG) PO ×2 (16:07→21:09)
[2017-11-29] MEDS: cefTRIAXone SOD 1 GM in D5W MINI-BAG PLUS 50 ML IV (16:17)
[2017-11-29 16:36] LABS: BEDSIDE GLUCOSE 112 MG/DL (83-110)
[2017-11-29] MEDS ORDERED: SLF 3 ML SYR IV (19:00)
[2017-11-29] MEDS: SLF 3 ML SYR IV (21:08)
[2017-11-29] MEDS: ISOSORBIDE DIN. (ISORDIL) 20 MG TAB PO (23:50)
[2017-11-30] MEDS: HEPARIN SOD (PORCINE) 5000 UNITS/ML VIAL SC ×3 (05:27→21:27)
[2017-11-30] MEDS: **hydrALAZINE** 10 MG TAB PO (05:28)
[2017-11-30] MEDS: SLF 3 ML SYR IV ×3 (05:28→21:27)
[2017-11-30] MEDS: ISOSORBIDE DIN. (ISORDIL) 20 MG TAB PO (05:28)
[2017-11-30 06:23] LABS: HEMATOCRIT 29.4 % (36.0-47.0); HEMOGLOBIN 10.4 g/dl (12.0-15.5); MEAN CORPUSCULAR HEMOGLOBIN 33.3 pg (27.0-33.0); MEAN CORPUSCULAR HGB CONC 35.4 g/dl (32.0-36.5); MEAN CORPUSCULAR VOLUME 94.2 fl (80.0-96.0); PLATELET COUNT, AUTOMATED 226 10^3/uL (150-450); RED BLOOD COUNT 3.12 10^6/uL (4.00-5.40); RED CELL DISTRIBUTION WIDTH 13.1 % (11.5-14.5); WHITE BLOOD COUNT 6.5 10^3/uL (4.0-10.0)
[2017-11-30 06:45] LABS: ALBUMIN 3.1 GM/DL (3.2-5.2); ALBUMIN/GLOBULIN RATIO 0.97 (1.00-1.93); ALKALINE PHOSPHATASE 69 U/L (45-117); ALT/SGPT 24 U/L (12-78); ANION GAP 7 MEQ/L (8-16); AST/SGOT 28 U/L (7-37); BILIRUBIN,TOTAL 0.3 MG/DL (0.2-1.0); BLOOD UREA NITROGEN 23 MG/DL (7-18); CALCIUM LEVEL 8.8 MG/DL (8.8-10.2); CARBON DIOXIDE LEVEL 24 MEQ/L (21-32); CHLORIDE LEVEL 109 MEQ/L (98-107); CREATININE FOR GFR 1.39 MG/DL (0.55-1.30); GLUCOSE, FASTING 105 MG/DL (70-100); MAGNESIUM LEVEL 1.8 MG/DL (1.8-2.4); POTASSIUM SERUM 3.9 MEQ/L (3.5-5.1); SODIUM LEVEL 140 MEQ/L (136-145); TOTAL PROTEIN 6.3 GM/DL (6.4-8.2)
[2017-11-30] MEDS ORDERED: ISOVUE-370 76% 100ML VIAL (Q9967) As Ordered (07:17)
[2017-11-30] MEDS: HumaLOG INSULIN (NovoLOG) PER UNIT SC ×4 (07:30→20:32)
[2017-11-30 08:27] LABS: BEDSIDE GLUCOSE 136 MG/DL (83-110)
[2017-11-30] MEDS: ASPIRIN 81 MG ENTERIC TAB PO (08:56)
[2017-11-30] MEDS: ATORVASTATIN 20 MG TAB PO (08:56)
[2017-11-30] MEDS: GABAPENTIN 300 MG CAP PO ×2 (08:56→21:27)
[2017-11-30] MEDS: CitaloPRAM (CeleXA) 20 MG TAB PO (08:56)
[2017-11-30] MEDS: LACTOBACILLUS ACIDOPHILUS CAP (BACID) PO (08:56)
[2017-11-30] MEDS: PANTOPRAZOLE 40MG TAB (PROTONIX) PO (08:56)
[2017-11-30] MEDS: amLODIPine 5 MG TAB PO (08:57)
[2017-11-30] MEDS: ALLOPURINOL 100 MG TAB PO (08:57)
[2017-11-30 11:41] LABS: BEDSIDE GLUCOSE 124 MG/DL (83-110)
[2017-11-30] MEDS: **hydrALAZINE HCL** 25 MG TAB PO ×2 (14:30→21:27)
[2017-11-30] MEDS: ISOSORBIDE DIN. (ISORDIL) 30 MG TAB PO ×2 (14:30→21:27)
[2017-11-30] MEDS: ACETAMINOPHEN TAB 650MG DOSE (2X325MG) PO ×2 (14:30→19:54)
[2017-11-30 16:33] LABS: BEDSIDE GLUCOSE 99 MG/DL (83-110)
[2017-11-30] MEDS: cefTRIAXone SOD 1 GM in D5W MINI-BAG PLUS 50 ML IV (17:18)
[2017-11-30 19:54] LABS: BEDSIDE GLUCOSE 151 MG/DL (83-110)
[2017-12-01] MEDS: **hydrALAZINE HCL** 25 MG TAB PO ×3 (06:21→21:34)
[2017-12-01] MEDS: ISOSORBIDE DIN. (ISORDIL) 30 MG TAB PO (06:21)
[2017-12-01] MEDS: HEPARIN SOD (PORCINE) 5000 UNITS/ML VIAL SC ×3 (06:21→21:35)
[2017-12-01] MEDS: ACETAMINOPHEN TAB 650MG DOSE (2X325MG) PO ×4 (06:22→22:40)
[2017-12-01] MEDS: SLF 3 ML SYR IV ×3 (06:24→21:35)
[2017-12-01 06:44] LABS: HEMATOCRIT 29.4 % (36.0-47.0); HEMOGLOBIN 10.4 g/dl (12.0-15.5); MEAN CORPUSCULAR HEMOGLOBIN 33.3 pg (27.0-33.0); MEAN CORPUSCULAR HGB CONC 35.4 g/dl (32.0-36.5); MEAN CORPUSCULAR VOLUME 94.2 fl (80.0-96.0); PLATELET COUNT, AUTOMATED 220 10^3/uL (150-450); RED BLOOD COUNT 3.12 10^6/uL (4.00-5.40); RED CELL DISTRIBUTION WIDTH 13.2 % (11.5-14.5); WHITE BLOOD COUNT 8.4 10^3/uL (4.0-10.0)
[2017-12-01 07:11] LABS: ALBUMIN 3.2 GM/DL (3.2-5.2); ALKALINE PHOSPHATASE 71 U/L (45-117); ALT/SGPT 23 U/L (12-78); ANION GAP 7 MEQ/L (8-16); AST/SGOT 24 U/L (7-37); BILIRUBIN,TOTAL 0.2 MG/DL (0.2-1.0); BLOOD UREA NITROGEN 22 MG/DL (7-18); CALCIUM LEVEL 8.8 MG/DL (8.8-10.2); CARBON DIOXIDE LEVEL 24 MEQ/L (21-32); CHLORIDE LEVEL 111 MEQ/L (98-107); CREATININE FOR GFR 1.61 MG/DL (0.55-1.30); GLOMERULAR FILTRATION RATE 32.9 (>39); GLUCOSE, FASTING 100 MG/DL (70-100); MAGNESIUM LEVEL 1.9 MG/DL (1.8-2.4); SODIUM LEVEL 142 MEQ/L (136-145); TOTAL PROTEIN 6.4 GM/DL (6.4-8.2)
[2017-12-01] MEDS: HumaLOG INSULIN (NovoLOG) PER UNIT SC ×4 (07:30→21:33)
[2017-12-01] MEDS: ATORVASTATIN 20 MG TAB PO (08:40)
[2017-12-01] MEDS: PANTOPRAZOLE 40MG TAB (PROTONIX) PO (08:40)
[2017-12-01] MEDS: ALLOPURINOL 100 MG TAB PO (08:40)
[2017-12-01] MEDS: LACTOBACILLUS ACIDOPHILUS CAP (BACID) PO (08:40)
[2017-12-01] MEDS: CitaloPRAM (CeleXA) 20 MG TAB PO (08:40)
[2017-12-01] MEDS: amLODIPine 5 MG TAB PO (08:40)
[2017-12-01] MEDS: ASPIRIN 81 MG ENTERIC TAB PO (08:40)
[2017-12-01] MEDS: GABAPENTIN 300 MG CAP PO ×2 (08:40→21:33)
[2017-12-01 11:39] LABS: BEDSIDE GLUCOSE 122 MG/DL (83-110)
[2017-12-01] MEDS: ISOSORBIDE DIN. (ISORDIL) 20 MG TAB PO ×2 (14:00→21:34)
[2017-12-01 16:45] LABS: BEDSIDE GLUCOSE 167 MG/DL (83-110)
[2017-12-01] MEDS: cefTRIAXone SOD 1 GM in D5W MINI-BAG PLUS 50 ML IV (17:27)
[2017-12-01 20:25] LABS: BEDSIDE GLUCOSE 152 MG/DL (83-110)
[2017-12-02 05:54] LABS: HEMATOCRIT 28.6 % (36.0-47.0); HEMOGLOBIN 9.9 g/dl (12.0-15.5); MEAN CORPUSCULAR HEMOGLOBIN 32.8 pg (27.0-33.0); MEAN CORPUSCULAR HGB CONC 34.6 g/dl (32.0-36.5); MEAN CORPUSCULAR VOLUME 94.7 fl (80.0-96.0); PLATELET COUNT, AUTOMATED 227 10^3/uL (150-450); RED BLOOD COUNT 3.02 10^6/uL (4.00-5.40); RED CELL DISTRIBUTION WIDTH 13.2 % (11.5-14.5); WHITE BLOOD COUNT 7.2 10^3/uL (4.0-10.0)
[2017-12-02] MEDS: **hydrALAZINE HCL** 25 MG TAB PO ×3 (06:33→21:49)
[2017-12-02] MEDS: SLF 3 ML SYR IV ×3 (06:35→21:50)
[2017-12-02] MEDS: ISOSORBIDE DIN. (ISORDIL) 20 MG TAB PO ×3 (06:35→21:50)
[2017-12-02] MEDS: HEPARIN SOD (PORCINE) 5000 UNITS/ML VIAL SC ×3 (06:35→21:50)
[2017-12-02 06:39] LABS: ALBUMIN 3.1 GM/DL (3.2-5.2); ALKALINE PHOSPHATASE 66 U/L (45-117); ALT/SGPT 26 U/L (12-78); ANION GAP 8 MEQ/L (8-16); AST/SGOT 32 U/L (7-37); BILIRUBIN,TOTAL 0.2 MG/DL (0.2-1.0); BLOOD UREA NITROGEN 21 MG/DL (7-18); CALCIUM LEVEL 8.7 MG/DL (8.8-10.2); CARBON DIOXIDE LEVEL 24 MEQ/L (21-32); CHLORIDE LEVEL 112 MEQ/L (98-107); CREATININE FOR GFR 1.63 MG/DL (0.55-1.30); GLOMERULAR FILTRATION RATE 32.5 (>39); GLUCOSE, FASTING 91 MG/DL (70-100); MAGNESIUM LEVEL 1.8 MG/DL (1.8-2.4); POTASSIUM SERUM 3.8 MEQ/L (3.5-5.1); SODIUM LEVEL 144 MEQ/L (136-145); TOTAL PROTEIN 6.2 GM/DL (6.4-8.2)
[2017-12-02] MEDS: HumaLOG INSULIN (NovoLOG) PER UNIT SC ×4 (07:27→21:43)
[2017-12-02] MEDS: GABAPENTIN 300 MG CAP PO ×2 (07:58→21:50)
[2017-12-02] MEDS: ATORVASTATIN 20 MG TAB PO (07:58)
[2017-12-02] MEDS: CitaloPRAM (CeleXA) 20 MG TAB PO (07:59)
[2017-12-02] MEDS: amLODIPine 5 MG TAB PO (07:59)
[2017-12-02] MEDS: ASPIRIN 81 MG ENTERIC TAB PO (07:59)
[2017-12-02] MEDS: ALLOPURINOL 100 MG TAB PO (07:59)
[2017-12-02] MEDS: LACTOBACILLUS ACIDOPHILUS CAP (BACID) PO (07:59)
[2017-12-02] MEDS: PANTOPRAZOLE 40MG TAB (PROTONIX) PO (07:59)
[2017-12-02] MEDS: KCL 20MEQ in NS 1000ML 1,000 ML IV (09:08)
[2017-12-02] MEDS: ACETAMINOPHEN TAB 650MG DOSE (2X325MG) PO ×3 (10:33→23:30)
[2017-12-02 12:08] LABS: BEDSIDE GLUCOSE 110 MG/DL (83-110)
[2017-12-02] MEDS: cefTRIAXone SOD 1 GM in D5W MINI-BAG PLUS 50 ML IV (16:22)
[2017-12-02 16:48] LABS: BEDSIDE GLUCOSE 122 MG/DL (83-110)
[2017-12-02 20:49] LABS: BEDSIDE GLUCOSE 149 MG/DL (83-110)
[2017-12-02 23:22] LABS: BEDSIDE GLUCOSE 130 MG/DL (83-110)
[2017-12-03] MEDS: **hydrALAZINE HCL** 25 MG TAB PO (05:45)
[2017-12-03] MEDS: ISOSORBIDE DIN. (ISORDIL) 20 MG TAB PO (05:45)
[2017-12-03] MEDS: ACETAMINOPHEN TAB 650MG DOSE (2X325MG) PO (06:07)
[2017-12-03] MEDS: HEPARIN SOD (PORCINE) 5000 UNITS/ML VIAL SC (06:07)
[2017-12-03] MEDS: SLF 3 ML SYR IV (06:07)
[2017-12-03 06:25] LABS: HEMATOCRIT 26.9 % (36.0-47.0); HEMOGLOBIN 9.5 g/dl (12.0-15.5); MEAN CORPUSCULAR HEMOGLOBIN 33.6 pg (27.0-33.0); MEAN CORPUSCULAR HGB CONC 35.3 g/dl (32.0-36.5); MEAN CORPUSCULAR VOLUME 95.1 fl (80.0-96.0); PLATELET COUNT, AUTOMATED 209 10^3/uL (150-450); RED BLOOD COUNT 2.83 10^6/uL (4.00-5.40); RED CELL DISTRIBUTION WIDTH 13.2 % (11.5-14.5); WHITE BLOOD COUNT 6.6 10^3/uL (4.0-10.0)
[2017-12-03 06:46] LABS: ALBUMIN 2.9 GM/DL (3.2-5.2); ALBUMIN/GLOBULIN RATIO 0.88 (1.00-1.93); ALKALINE PHOSPHATASE 73 U/L (45-117); ALT/SGPT 43 U/L (12-78); ANION GAP 7 MEQ/L (8-16); AST/SGOT 63 U/L (7-37); BILIRUBIN,TOTAL 0.2 MG/DL (0.2-1.0); BLOOD UREA NITROGEN 19 MG/DL (7-18); CALCIUM LEVEL 8.7 MG/DL (8.8-10.2); CARBON DIOXIDE LEVEL 22 MEQ/L (21-32); CHLORIDE LEVEL 112 MEQ/L (98-107); CREATININE FOR GFR 1.37 MG/DL (0.55-1.30); GLOMERULAR FILTRATION RATE 39.7 (>39); GLUCOSE, FASTING 106 MG/DL (70-100); MAGNESIUM LEVEL 1.8 MG/DL (1.8-2.4); POTASSIUM SERUM 4.2 MEQ/L (3.5-5.1); SODIUM LEVEL 141 MEQ/L (136-145); TOTAL PROTEIN 6.2 GM/DL (6.4-8.2)
[2017-12-03] MEDS: HumaLOG INSULIN (NovoLOG) PER UNIT SC (07:03)
[2017-12-03] MEDS: ATORVASTATIN 20 MG TAB PO (08:33)
[2017-12-03] MEDS: PANTOPRAZOLE 40MG TAB (PROTONIX) PO (08:33)
[2017-12-03] MEDS: ASPIRIN 81 MG ENTERIC TAB PO (08:33)
[2017-12-03] MEDS: amLODIPine 5 MG TAB PO (08:34)
[2017-12-03] MEDS: CitaloPRAM (CeleXA) 20 MG TAB PO (08:35)
[2017-12-03] MEDS: LACTOBACILLUS ACIDOPHILUS CAP (BACID) PO (08:35)
[2017-12-03] MEDS: ALLOPURINOL 100 MG TAB PO (08:35)
[2017-12-03] MEDS: GABAPENTIN 300 MG CAP PO (08:35)
== END 2017-12-03 10:39 | disposition home or self-care (01) | DRG 690 ==
LOC: M MSPAV 12-01 17:16 → M ED 11:30 → M ED INP 16:27 → M MS4PR 21:32
DX: N10 Acute pyelonephritis (principal); N18.4 Chronic kidney disease, stage 4 (severe); N39.0 Urinary tract infection, site not specified; K21.9 Gastro-esophageal reflux disease without esophagitis; I12.9 Hypertensive chronic kidney disease with stage 1 through stage 4 chronic kidney disease, or unspecified chronic kidney disease; E78.5 Hyperlipidemia, unspecified; F32.9 Major depressive disorder, single episode, unspecified; F41.9 Anxiety disorder, unspecified; E11.40 Type 2 diabetes mellitus with diabetic neuropathy, unspecified; N20.0 Calculus of kidney; M10.9 Gout, unspecified; M19.90 Unspecified osteoarthritis, unspecified site; B96.29 Other Escherichia coli [E. coli] as the cause of diseases classified elsewhere; Z79.899 Other long term (current) drug therapy; Z88.5 Allergy status to narcotic agent; Z88.1 Allergy status to other antibiotic agents; Z88.2 Allergy status to sulfonamides; Z88.8 Allergy status to other drugs, medicaments and biological substances; Z79.82 Long term (current) use of aspirin

== ENCOUNTER → 2018-01-26 | Outpatient (REF) | payer MEDICARE, OTHER ==
[2018-01-26 12:41] LABS: PTH INTACT 108.9 PG/ML (18.5-88.0); VITAMIN B12 LEVEL 927 PG/ML
[2018-01-26 12:42] LABS: ALBUMIN 3.6 GM/DL (3.2-5.2); ALBUMIN/GLOBULIN RATIO 1.13 (1.00-1.93); ALKALINE PHOSPHATASE 93 U/L (45-117); ALT/SGPT 29 U/L (12-78); ANION GAP 9 MEQ/L (8-16); AST/SGOT 21 U/L (7-37); BILIRUBIN,TOTAL 0.4 MG/DL (0.2-1.0); BLOOD UREA NITROGEN 25 MG/DL (7-18); CALCIUM LEVEL 8.8 MG/DL (8.8-10.2); CARBON DIOXIDE LEVEL 25 MEQ/L (21-32); CHLORIDE LEVEL 111 MEQ/L (98-107); CHOLESTEROL LEVEL 114 MG/DL (<200); CHOLESTEROL RISK RATIO 3.166 (<5); GLUCOSE, FASTING 114 MG/DL (70-100); HDL CHOLESTEROL 36 MG/DL (>40); LDL CHOLESTEROL 45.2 MG/DL (<100); NON-HDL-C 78 MG/DL; POTASSIUM SERUM 4.2 MEQ/L (3.5-5.1); SODIUM LEVEL 145 MEQ/L (136-145); TOTAL PROTEIN 6.8 GM/DL (6.4-8.2); TRIGLYCERIDES LEVEL 164 MG/DL (<150)
[2018-01-26 13:54] LABS: ESTIMATED AVERAGE GLUCOSE 128 MG/DL (60-110); HEMOGLOBIN A1c 6.1 %
[2018-01-26 14:03] LABS: MALB URINE SIEMENS 24.1 MG/L; MAU/CREAT RATIO 7.4 MCG/MG (0.0-30.0)
== END ==
LOC: M SFHCPLAZ 08:11
DX: N18.4 Chronic kidney disease, stage 4 (severe) (principal); E78.00 Pure hypercholesterolemia, unspecified; F41.8 Other specified anxiety disorders; E11.40 Type 2 diabetes mellitus with diabetic neuropathy, unspecified; G62.9 Polyneuropathy, unspecified
CPT/HCPCS: 82746

== ENCOUNTER → 2018-08-18 | Outpatient (REF) | payer MEDICARE, OTHER ==
[~2018-08-18] MED LIST changes: +ALLO10TA PO; +AMLO5TAB6; +AMLO5TAB6 PO; +ASPI81TA85 PO; +ATOR1TAB21 PO; +BACITAB PO; +CALC600T7 PO; +CEFD1CAP8 PO; +CITA20TA4 PO; +DICY1CAP8 PO; -HEPARIN 1,000 UNITS/ML 10ML VIAL (FOR RADIOLOGY& DIALYSIS ONLY) As Ordered; +ICAPCAP PO; +ISOS60TA2 PO; -ISOVUE-300 61% 50ML VIAL (Q9967) As Ordered; +LATA5OPD; +LATA5OPD OU; -LIDOCAINE 2% MDV 20 ML VIAL As Ordered; +LISI10TA2 PO; +LISI20TA PO; +LOVA10TA PO; +MACR100C43 PO; +MAGN400T PO; +METO1TAB33 PO; +METO1TAB7 PO; -MIDAZOLAM INJ 2 MG/2 ML VIAL (J2250) As Ordered; +MULTCAP PO; +NEUR600T PO; +NITR100C2; +PROT1TAB2 PO; +PROTPAK PO; +SITA50TAB; +SITA50TAB PO; +TYLE325T5 PO; +ULTR50TA8 PO; +VITA500T3 PO; +[UNRECOGNIZED DRUG - OTHER] PO; -fentaNYL 100 MCG/2 ML INJECTION (J3010) As Ordered
[2018-08-18 11:54] LABS: HEMATOCRIT 35.9 % (36.0-47.0); MEAN CORPUSCULAR HGB CONC 33.4 g/dl (32.0-36.5); MEAN CORPUSCULAR VOLUME 95.7 fl (80.0-96.0); PLATELET COUNT, AUTOMATED 387 10^3/uL (150-450); RED BLOOD COUNT 3.75 10^6/uL (4.00-5.40); WHITE BLOOD COUNT 8.5 10^3/uL (4.0-10.0)
[2018-08-18 12:47] LABS: ALBUMIN 3.3 GM/DL (3.2-5.2); BILIRUBIN,TOTAL 0.4 MG/DL (0.2-1.0); CALCIUM LEVEL 8.6 MG/DL (8.8-10.2); CHOLESTEROL RISK RATIO 3.97 (<5); CREATININE FOR GFR 1.51 MG/DL (0.55-1.30); GLOMERULAR FILTRATION RATE 35.4 (>39); MAGNESIUM LEVEL 1.2 MG/DL (1.8-2.4); POTASSIUM SERUM 3.4 MEQ/L (3.5-5.1); PTH INTACT 98.1 PG/ML (18.5-88.0); TOTAL PROTEIN 6.4 GM/DL (6.4-8.2)
== END ==
LOC: M SFHCPLAZ 10:08
PROVIDERS: ATTEND Internal Medicine
DX: Z79.899 Other long term (current) drug therapy (principal); I12.9 Hypertensive chronic kidney disease with stage 1 through stage 4 chronic kidney disease, or unspecified chronic kidney disease; E11.40 Type 2 diabetes mellitus with diabetic neuropathy, unspecified; E78.00 Pure hypercholesterolemia, unspecified; N18.4 Chronic kidney disease, stage 4 (severe)

== ENCOUNTER 2018-10-25 15:47 | Emergency (ER) | payer MEDICARE, OTHER ==
[~2018-10-25] VITALS: Ht 165.1 cm; Wt 72.2 kg
[~2018-10-25 15:47] MED LIST changes: -CITA20TA4 PO; +CITA20TA6 PO; +LATA0.0013; +LATA0.0013 OU; -LATA5OPD; -LATA5OPD OU
[2018-10-25] MEDS ORDERED: LIDOCAINE 2% INJ 100 MG/5 ML SYRINGE IV STA (16:05)
[2018-10-25] MEDS ORDERED: LIDOCAINE 2% MDV 20 ML VIAL As Ordered ONE (16:10)
[2018-10-25] MEDS ORDERED: TETANUS/DIPHTHERIA TOX ADSORB ADULT 0.5ML SYR/VIAL (90714) IM ONE (16:15)
[2018-10-25] MEDS ORDERED: LIDOCAINE 2% MDV 20 ML VIAL SC ONE (16:30)
[2018-10-25] MEDS ORDERED: NEOSPORIN OINT 0.9 GM PKT (FLOOR STOCK) As Ordered ONE (16:56)
--- NOTE | 2018-10-25 16:58 | REP ---
CT Head without contrast HISTORY: Head injury COMPARISON: 11/28/2017 Areas of decreased attenuation are present in the periventricular and subcortical white matter. This represents small-vessel ischemic disease. There is no intraparenchymal hemorrhage, acute infarct, mass or midline shift. The ventricular system and cortical sulci are dilated consistent with mild volume loss. There is no extra cerebral collection. There is no fracture. The visualized sinuses are clear. Soft tissue swelling and a small amount of subcutaneous air are present overlying the right orbit. IMPRESSION: 1. Small vessel ischemic disease. 2. Mild volume loss. Electronically Signed by Rosendo Carroll MD 10/25/2018 04:50 P
--- NOTE | 2018-10-25 17:13 | REP ---
MAXILLOFACIAL CT WITHOUT CONTRAST: HISTORY: Fall. Minimal mucosal thickening is present in the right maxillary sinus. The remaining sinuses are clear. The ostiomeatal units are patent. The middle and inferior nasal turbinates are partially paradoxical. There is minimal deviation of the nasal septum to the right. A spur is present arising from the right side of the nasal septum. The cribriform plate, medial raphael of the orbits and optic canals are intact. The carotid canals form a segment of the posterolateral raphael of the sphenoid sinus. The sphenoid sinus septa insert into the internal carotid canal raphael. Contents of the orbits are normal. There is no fracture. Soft tissue swelling and a small amount of subcutaneous emphysema is present in the soft tissue overlying the right orbit. IMPRESSION: 1. Sinus mucosal thickening as described above. 2. There is no fracture. Electronically Signed by Rosendo Carroll MD 10/25/2018 05:15 P
--- NOTE | 2018-10-25 17:32 | REP ---
Right hand four views History: Injury There is no acute fracture or dislocation. There is narrowing of the navicular greater multangular and greater multangular first metacarpal joint spaces. There is narrowing of the 2nd through 5th intermediate and distal interphalangeal joint spaces. Osteophytes are present at the proximal interphalangeal joints of the second, third and fifth digits and second and at the distal interphalangeal joints of the second and third digits. Impression: There is no acute fracture or dislocation. Electronically Signed by Rosendo Carroll MD 10/25/2018 05:23 P
[2018-10-25 17:58] VITALS: BP 98/64
== END 2018-10-25 18:11 | disposition home or self-care (01) ==
LOC: M ED 15:47
DX: S01.81XA Laceration without foreign body of other part of head, initial encounter (principal); S61.216A Laceration without foreign body of right little finger without damage to nail, initial encounter; W01.0XXA Fall on same level from slipping, tripping and stumbling without subsequent striking against object, initial encounter; Y92.099 Unspecified place in other non-institutional residence as the place of occurrence of the external cause; Y93.9 Activity, unspecified; Y99.9 Unspecified external cause status; E11.9 Type 2 diabetes mellitus without complications; I10 Essential (primary) hypertension; Z72.0 Tobacco use; Z79.82 Long term (current) use of aspirin; Z79.84 Long term (current) use of oral hypoglycemic drugs; Z79.899 Other long term (current) drug therapy; Z88.2 Allergy status to sulfonamides; Z88.8 Allergy status to other drugs, medicaments and biological substances; Z88.5 Allergy status to narcotic agent; Z88.0 Allergy status to penicillin

== ENCOUNTER 2019-05-02 13:49 | Inpatient (IN) | payer MEDICARE, OTHER ==
[~2019-05-02] VITALS: Ht 160 cm; Wt 50.0 kg
[~2019-05-02 13:49] MED LIST changes: +CYAN500T8 PO; +LISI10TA15 PO; -LISI10TA2 PO; -LISI20TA PO; +LISI20TA19 PO; -MAGN400T PO; +MAGN400T3 PO; -VITA500T3 PO
[2019-05-02] MEDS ORDERED: NS 1,000 ML IV ONE (14:30)
[2019-05-02 14:51] LABS: BASO % 0.2 % (0.0-1.0); EOS % 0.5 % (0.0-3.0); HEMATOCRIT 31.2 % (36.0-47.0); HEMOGLOBIN 11.1 g/dl (12.0-15.5); LYMPH # 1.4 10^3/uL (1.5-5.0); LYMPH % 17.2 % (24.0-44.0); MEAN CORPUSCULAR HGB CONC 35.6 g/dl (32.0-36.5); MEAN CORPUSCULAR VOLUME 95.7 fl (80.0-96.0); MONO # 0.8 10^3/uL (0.0-0.8); MONO % 9.3 % (0.0-5.0); NEUTROPHILS # 5.9 10^3/uL (1.5-8.5); NEUTROPHILS % 72.3 % (36.0-66.0); PLATELET COUNT, AUTOMATED 220 10^3/uL (150-450); RED BLOOD COUNT 3.26 10^6/uL (4.00-5.40); WHITE BLOOD COUNT 8.2 10^3/uL (4.0-10.0)
[2019-05-02 15:03] LABS: INR 1.04; PROTHROMBIN TIME 13.3 SECONDS (11.8-14.0)
[2019-05-02 15:21] LABS: ALBUMIN 3.4 GM/DL (3.2-5.2); ALT/SGPT 17 U/L (12-78); BILIRUBIN,DIRECT 0.2 MG/DL (0.0-0.2); BILIRUBIN,TOTAL 0.6 MG/DL (0.2-1.0); BLOOD UREA NITROGEN 22 MG/DL (7-18); CALCIUM LEVEL 9.1 MG/DL (8.8-10.2); CARBON DIOXIDE LEVEL 25 MEQ/L (21-32); CHLORIDE LEVEL 108 MEQ/L (98-107); CK-MB VALUE MASS 1.3 NG/ML (<3.6); CPK CREATINE PHOSPHOKINASE 51 U/L (26-192); CREATININE FOR GFR 1.61 MG/DL (0.55-1.30); FREE T4 1.28 NG/DL (0.76-1.46); GLOMERULAR FILTRATION RATE 32.9 (>39); GLUCOSE, FASTING 91 MG/DL (70-100); MAGNESIUM LEVEL 0.9 MG/DL (1.8-2.4); MB/CK RELATIVE INDEX 2.55 (< OR =4); POTASSIUM SERUM 3.9 MEQ/L (3.5-5.1); SODIUM LEVEL 141 MEQ/L (136-145); TOTAL PROTEIN 6.3 GM/DL (6.4-8.2); TROPONIN I < 0.02 NG/ML (< 0.10)
[2019-05-02] MEDS ORDERED: MAG SULF 1GM/100ML (MAG RUN) 1 GM in IV 1 EA IV ONE (15:30)
--- NOTE | 2019-05-02 15:45 | REP ---
CHEST, SINGLE VIEW: There is no evidence of acute infiltrate. No pleural effusion is seen. The heart is normal in size. The mediastinal silhouette is unremarkable. The visualized osseous structures are intact. There is calcification of the thoracic aorta. IMPRESSION: No acute pulmonary disease. Electronically Signed by Alexandro Webber MD 05/04/2019 12:57 A
--- NOTE | 2019-05-02 16:41 | REP ---
CT ABDOMEN AND PELVIS WITHOUT CONTRAST: CT abdomen and pelvis performed without oral or IV contrast. Sagittal and coronal reconstruction images are performed. Comparison is made with prior studies dating back to 11/26/2017. There is mild fibrotic changes in both lung bases. The liver is grossly unremarkable. The patient has had a prior cholecystectomy. Tiny calcified granulomas are seen in the spleen. There is stable thickening of the adrenal glands. Pancreas is grossly unremarkable. There are bilateral renal cysts which appear similar to the prior study. No renal or ureteral calculus is seen and there is no hydroureteronephrosis. There is moderate atherosclerotic calcification of the abdominal aorta without aneurysm. There is no adenopathy. There is no free air or free fluid. There is no bowel wall thickening. There is sigmoid diverticulosis without evidence of acute diverticulitis. Multiple metallic clips are seen in the anterior abdominal wall superiorly. No pelvic mass is seen. Urinary bladder is not optimally distended and not well evaluated. There are degenerative changes of the spine. IMPRESSION: No acute abnormalities. Status post cholecystectomy. Sigmoid diverticulosis without acute diverticulitis. Bilateral renal cysts. No free air or free fluid. Electronically Signed by Alexandro Webber MD 05/05/2019 10:04 A
--- NOTE | 2019-05-02 17:30 | ECGEPIP ---
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
[2019-05-02] MEDS: MAG SULF 1GM/100ML (MAG RUN) 1 GM in IV 1 EA IV SCH ×2 (18:20→20:16)
[2019-05-02] MEDS ORDERED: XALA0.007 OU (18:41)
[2019-05-02] MEDS ORDERED: NORV5TAB PO (18:41)
[2019-05-02] MEDS ORDERED: ICAPCAP2 PO (18:41)
[2019-05-02] MEDS ORDERED: ISOS60TA2 PO (18:41)
[2019-05-02] MEDS ORDERED: METO1TAB33 PO (18:42)
[2019-05-02] MEDS ORDERED: ACETAMINOPHEN TAB 650MG DOSE (2X325MG) PO PRN (18:45)
[2019-05-02] MEDS ORDERED: GLUCOSE 4 GM CHEW TABLET PO PRN (19:00)
[2019-05-02] MEDS ORDERED: GLUCAGON FOR INJ 1 MG VIAL (J1610) SC PRN (19:00)
[2019-05-02] MEDS ORDERED: DEXTROSE 50% 50 ML SYRINGE IV PRN (19:00)
--- NOTE | 2019-05-02 19:14 | HPEPDOC ---
[facility] Medical History & Physical Date of Admission May 02, 2019 Date of Service: May 02, 2019 Primary Care Physician: Bryce Hou Attending Physician: HORACE ANTONIO MD History and Physical CHIEF COMPLAINT: Weakness, dizziness HISTORY OF PRESENT ILLNESS: Kaia Reddy is a 78-year-old pleasantly demented female with history of hypertension and diabetes who presents to the ED for an episode of weakness and dizziness in which she felt her "feet didn't work." The patient woke up this morning, ate breakfast and went out with her son as normal. She did take all of her medications. When she was leaving the store she had an episode where she felt lightheaded and dizzy, and her son had to help her to the car. This episode lasted about 20 minutes. After which he drove her to the hospital. Was no loss of consciousness or seizure activity reported. Her son Mariusz is present with her today on exam.. He reports that the patient lives alone and manages all of her medications on her own. Her son checks in on her once every other day and she tends to miss doses of her medications at least once or twice a week. He also reports that she has not been eating well. No reports of any recent illness, including fevers, chills, nausea, vomiting or diarrhea. The patient has not seen her PCP since her last admission in November 2017. She is unable to answer any questions regarding her medications or medical conditions. The patient has poor short-term memory, but has never been diagnosed with any neurologic disease. The patient presented to the ED and was found to have a blood pressure of 74/45, and magnesium level at 0.9. Her blood pressure responded to 1 L of fluid and came up to 100/55, and she is currently undergoing magnesium replacement via IV. Hospitalist team was called to admit her for hypotension in the setting of possible medication overdose. PAST MEDICAL HISTORY: 1., Hypertension 2. Diabetes 3., Dyslipidemia. 4. Gout. 5. Anxiety. 6. Irritable bowel syndrome. 7. Peripheral neuropathy. 8. PVD. 9. GERD. 10. Anxiety/depression. 11. CK D stage IV. 12. Osteoarthritis PAST SURGICAL HISTORY: 1. Sigmoid colectomy with anastomosis in 2014 along with lysis of adhesions. 2. Right oophorectomy with appendectomy for ovarian cyst followed by total abdominal hysterectomy in 1976. 3. L5-S1 lumbar laminectomy in 1977. 4. Cholecystectomy in 1978 along with lysis of adhesions and common bile duct (CBD) exploration. 5. Incisional abdominal hernia repair in 2002. SOCIAL HISTORY: Current smoker, smokes 1 pack per week. Lives alone. No alcohol use reported FAMILY HISTORY: Reviewed and is currently noncontributory to the current hospitalization ALLERGIES: Please see below. REVIEW OF SYSTEMS: CONSTITUTIONAL: Feels well. Denies fever or chills HEENT: denies vision changes, no sinus problems, denies any trouble swallowing CARDIOVASCULAR: no palpitations RESPIRATORY: Denies any shortness of breath GENITOURINARY: Denies any dysuria, denies urinary frequency MUSCULOSKELETAL: Denies any joint/muscle pain GASTROINTESTINAL: Denies abdominal pain, no nausea/vomiting/diarrhea SKIN: No new rashes or lesions NEUROLOGICAL: No loss of sensation PSYCHIATRIC: Reports normal mood, no delusions or hallucinations ENDOCRINE: No hot/cold intolerance HEMATOLOGIC/LYMPHATIC: No easy bruising, no lumps/bumps ALLERGIC/IMMUNOLOGIC: No sinus symptoms HOME MEDICATIONS: Please see below. PHYSICAL EXAMINATION: VITAL SIGNS: Please see below. GENERAL APPEARANCE: Laying in bed, appears stated age, no acute distress, calm, cooperative, requires repeated information as she forgets within 10 minutes HEENT: EOMI, PERRLA, neck is supple with no thyromegaly or lymphadenopathy RESPIRATORY: Lungs are clear to auscultation bilaterally with no adventitious breath sounds appreciated CARDIOVASCULAR: no JVD, RRR,no murmurs/rubs/gallops ABDOMEN: Soft, nontender to palpation in all four quadrants, no masses/organomegaly EXTREMITIES: no clubbing, cyanosis or edema noted NEUROLOGICAL: No obvious focal deficits PSYCHIATRIC: Very tangential, forgetful, oriented only to place and person, not to time Skin: No rashes or ulcers. LN: No significant cervical or inguinal lymphadenopathy LABORATORY DATA: See below. IMAGING: Chest x-ray:There is no evidence of acute infiltrate. No pleural effusion is seen. The heart is normal in size. The mediastinal silhouette is unremarkable. The visualized osseous structures are intact. There is calcification of the thoracic aorta. IMPRESSION: No acute pulmonary disease. CT ABD: No acute abnormalities. Status post cholecystectomy. Sigmoid diverticulosis without acute diverticulitis. Bilateral renal cysts. No free air or free fluid. MICROBIOLOGY: Please see below. ASSESSMENT: This is a 78-year-old female, past medical history of hypertension and diabetes who presents with hypotension and hypomagnesemia in the setting of possible medication overdose. Patient has not seen her PCP since her last admission one year ago. PLAN: 1. Hypotension: Patient's blood pressure on admission was found to be 74/45, and she responded to 1 L fluid bolus and is now up to 100/55. She denies any symptoms of lightheadedness or dizziness at this time. - Etiology: Possibly 2/2 inappropriate consumption of BP medications, less likely 2/2 infectious etiology -Will continue the patient on fluids 100 mL per hour for now -Hold all home blood pressure medications (Amlodipine, Isosorbide, Metoprolol Succinate) 2. Hypomagnesemia: Patient's magnesium was found to be 0.9 on admission. Likely secondary to medication side effect. -Status post 3 Mag-Runs IV. 3. Dementia-like symptoms: Patient is very forgetful on exam today. Her son reports this is her baseline. She does not have an official diagnosis of dementia or Alzheimer's in her history. -Fall precautions and frequent redirection necessary 4. DM2 and peripheral neuropathy: -Will start the patient on SSI while inpatient -Will check A1c -Continue Gabapentin 5.CKD IV: -Creatinine stable on admission 6. Dyslipidemia: -Will continue home atorvastatin. 7. Mood disorder: -Continue Citalopram 8. GERD: -Continue home Pantoprazole 9. Gout: -Continue Allopurinol 10. Vitamin B12 deficiency: -Continue supplementation PRN Pain and Bowel regimen ordered Dipso: pending magnesium replacement and resolution of hypotension Vital Signs Vital Signs Date Time Temp Pulse Resp B/P (MAP) Pulse Ox O2 Delivery O2 Flow Rate FiO2 05/02/19 18:19 51 96 Room Air 05/02/19 18:15 115/55 (75) 05/02/19 17:29 99.0 05/02/19 13:50 18 Laboratory Data Labs 24H Laboratory Tests 2 05/02/19 14:17: Bedside Glucose (Misc Panel) 109 05/02/19 14:38: Immature Granulocyte % (Auto) 0.5, Neutrophils (%) (Auto) 72.3H, Lymphocytes (%) (Auto) 17.2L, Monocytes (%) (Auto) 9.3H, Eosinophils (%) (Auto) 0.5, Basophils (%) (Auto) 0.2, Neutrophils # (Auto) 5.9, Lymphocytes # (Auto) 1.4L, Monocytes # (Auto) 0.8, Eosinophils # (Auto) 0.0, Basophils # (Auto) 0.0, Nucleated Red Blood Cells % (auto) 0.0, Prothrombin Time 13.3, Prothromb Time International Ratio 1.04, Activated Partial Thromboplast Time 30.0, Anion Gap 8, Glomerular Filtration Rate 32.9L, Lactic Acid Level 2.2*H, Calcium Level 9.1, Magnesium Level 0.9*L, Total Bilirubin 0.6, Direct Bilirubin 0.2, Aspartate Amino Transf (AST/SGOT) 17, Alanine Aminotransferase (ALT/SGPT) 17, Alkaline Phosphatase 108, Total Creatine Kinase 51, Creatine Kinase MB 1.3, Creatine Kinase MB Relative Index 2.55, Troponin I < 0.02, Total Protein 6.3L, Albumin 3.4, Albumin/Globulin Ratio 1.17, Thyroid Stimulating Hormone (TSH) 1.840, Free Thyroxine 1.28 05/02/19 15:34: Urine Color YELLOW, Urine Appearance HAZY, Urine pH 5.0, Urine Specific [place] 1.012, Urine Protein NEGATIVE, Urine Glucose (UA) NEGATIVE, Urine Ketones NEGATIVE, Urine Blood 1+H, Urine Nitrite NEGATIVE, Urine Bilirubin NEGATIVE, Urine Urobilinogen 0.2, Urine Leukocyte Esterase 2+H, Urine WBC (Auto) 21H, Urine RBC (Auto) 4H, Urine Hyaline Casts (Auto) 1, Urine Bacteria (Auto) NEGATIVE, Urine Squamous Epithelial Cells 1, Urine Mucus (Auto) SMALL, Urine Sperm (Auto) CBC/BMP Laboratory Tests 05/02/19 14:38 Microbiology Microbiology 05/02/19 Urine Culture, Received Pending Home Medications Scheduled Allopurinol (Allopurinol) 100 Mg Tab, 100 MG PO DAILY Amlodipine Besylate (Norvasc) 5 Mg Tablet, 5 MG PO DAILY Atorvastatin Calcium (Atorvastatin Calcium) 20 Mg Tab, 20 MG PO DAILY Calcium Carbonate/Vitamin D3 (Calcium 600-Vit D3 200 Tablet) 1 Tab Tab, 1 TAB PO BID Citalopram Hydrobromide (Citalopram HBr) 20 Mg Tab, 20 MG PO DAILY Cyanocobalamin (Vitamin B-12) (Vitamin B-12) 500 Mcg Tab, 500 MCG PO DAILY Gabapentin (Neurontin) 600 Mg Tab, 1,200 MG PO BID Isosorbide Mononitrate (Isosorbide Mononitrate ER) 60 Mg Tab.er.24h, 60 MG PO DAILY Latanoprost (Xalatan) 0.005% 2.5ML Drops, 1 DROP OU QHS Metoprolol Succinate (Metoprolol Succinate) 100 Mg Tab.er.24h, 100 MG PO DAILY Multivitamin (Multivitamins) 1 Cap Cap, 1 CAP PO DAILY Pantoprazole Sodium (Protonix) 40 Mg Tab, 40 MG PO DAILY Sitagliptin (Januvia) 50 Mg Tab, 50 MG PO DAILY Vit A/Vit C/Vit E/Zinc/Copper (Icaps Areds Softgel) 1 Each Capsule, 1 CAP PO DAILY Allergies Coded Allergies: Sulfa (Sulfonamide Antibiotics) (Verified Allergy, Unknown, 05/02/19) codeine (Verified Allergy, Unknown, 05/02/19) erythromycin base (Verified Allergy, Unknown, 05/02/19) meperidine (Verified Allergy, Unknown, 05/02/19) pentazocine (Verified Allergy, Unknown, 05/02/19) A-FIB/CHADSVASC A-FIB History Current/History of A-Fib/PAF?: No Current PO Anticoag Therapy: No GME ATTESTATION GME ATTESTATION My faculty preceptor for this patient encounter was physically present during the encounter and was fully available. All aspects of the patient interview, examination, medical decision making process, and medical care plan development were reviewed and approved by the faculty preceptor. The faculty preceptor is aware and concurs with the plan as stated in the body of this note and will attest to such by his/her cosignature. ATTENDING NOTE I, Horace Antonio, have independently examined this patient and performed my own physical exam, as well as reviewed the documentation and edited where necessary. I have discussed in detail with the resident / student the findings and plan of treatment as documented by the resident / student and edited their note. I agree with their findings and treatment plan and have edited their documentation. I will continue to follow the patient during this hospital stay. EARL DESAI MD May 02, 2019 19:14 HORACE ANTONIO MD May 03, 2019 12:51
[2019-05-02] MEDS: NS 1,000 ML IV SCH (20:17)
[2019-05-02] MEDS: HumaLOG INSULIN (NovoLOG) PER UNIT SC SCH (21:00)
[2019-05-02] MEDS: DOCUSATE SODIUM 100 MG CAP PO SCH (21:27)
[2019-05-02] MEDS: LATANOPROST 0.005% OPHTH SOLN 2.5 ML OU SCH (21:28)
[2019-05-02] MEDS: GABAPENTIN 400 MG CAP PO SCH (21:28)
[2019-05-03] MEDS: NS 1,000 ML IV SCH ×2 (05:54→15:30)
[2019-05-03 06:59] LABS: HEMATOCRIT 27.9 % (36.0-47.0); HEMOGLOBIN 9.9 g/dl (12.0-15.5); MEAN CORPUSCULAR HEMOGLOBIN 34.5 pg (27.0-33.0); MEAN CORPUSCULAR HGB CONC 35.5 g/dl (32.0-36.5); MEAN CORPUSCULAR VOLUME 97.2 fl (80.0-96.0); PLATELET COUNT, AUTOMATED 181 10^3/uL (150-450); RED BLOOD COUNT 2.87 10^6/uL (4.00-5.40); WHITE BLOOD COUNT 7.4 10^3/uL (4.0-10.0)
[2019-05-03] MEDS: HumaLOG INSULIN (NovoLOG) PER UNIT SC SCH ×4 (07:16→20:22)
[2019-05-03 07:30] LABS: CALCIUM LEVEL 8.5 MG/DL (8.8-10.2); CREATININE FOR GFR 1.69 MG/DL (0.55-1.30); GLOMERULAR FILTRATION RATE 31.1 (>39); POTASSIUM SERUM 3.8 MEQ/L (3.5-5.1)
[2019-05-03] MEDS: GABAPENTIN 400 MG CAP PO SCH ×2 (08:19→20:22)
[2019-05-03] MEDS: CYANOCOBALAMIN 500 MCG TAB PO SCH (08:20)
[2019-05-03] MEDS: PANTOPRAZOLE 40MG TAB (PROTONIX) PO SCH (08:20)
[2019-05-03] MEDS: ALLOPURINOL 100 MG TAB PO SCH (08:20)
[2019-05-03] MEDS: DOCUSATE SODIUM 100 MG CAP PO SCH ×2 (08:20→20:22)
[2019-05-03] MEDS: ATORVASTATIN 20 MG TAB PO SCH (08:20)
[2019-05-03] MEDS: amLODIPine 5 MG TAB PO SCH (08:20)
[2019-05-03] MEDS: CitaloPRAM (CeleXA) 20 MG TAB PO SCH (08:20)
--- NOTE | 2019-05-03 14:52 | IPNPDOC ---
Date Seen The patient was seen on 05/03/19. Progress Note SUBJECTIVE: Patient has no complaints this morning. No events reported overnight. She worked with PT this morning and did not pass, as she was found to have impulsive movements making her unsafe for home. Patient has significant memory issues and needs frequent reorientation, but she is calm and pleasant. OBJECTIVE PHYSICAL EXAMINATION: VITAL SIGNS: Please see below. GENERAL APPEARANCE: Laying in bed, appears stated age, no acute distress, calm, cooperative, requires repeated information as she forgets within 10 minutes HEENT: EOMI, PERRLA, neck is supple with no thyromegaly or lymphadenopathy RESPIRATORY: Lungs are clear to auscultation bilaterally with no adventitious breath sounds appreciated CARDIOVASCULAR: no JVD, RRR,no murmurs/rubs/gallops ABDOMEN: Soft, nontender to palpation in all four quadrants, no masses/organomegaly EXTREMITIES: no clubbing, cyanosis or edema noted NEUROLOGICAL: No obvious focal deficits PSYCHIATRIC: Very tangential, forgetful, oriented only to place and person, not to time Skin: No rashes or ulcers. LN: No significant cervical or inguinal lymphadenopathy LABORATORY DATA: See below. MICROBIOLOGY: Please see below. ASSESSMENT: This is a 78-year-old female, past medical history of hypertension and diabetes who presents with hypotension and hypomagnesemia in the setting of possible medication overdose. Patient has not seen her PCP since her last admission one year ago. PLAN: 1. Hypotension: Resolved. Patient's blood pressure on admission was found to be 74/45, and she responded to 1 L fluid bolus and is now up to 126/61 - Etiology: Possibly 2/2 inappropriate consumption of BP medications, less likely 2/2 infectious etiology -Will continue the patient on fluids 100 mL per hour for now -Home BP med restarted (Amlodipine) due to hypertension 2. Hypomagnesemia: Patient's magnesium was found to be 0.9 on admission. -Resolve. Mg today 2.4 3. Dementia-like symptoms: Patient is very forgetful on exam today. Her son reports this is her baseline. She does not have an official diagnosis of dementia or Alzheimer's in her history. -Fall precautions and frequent redirection necessary 4. DM2 and peripheral neuropathy: -Will start the patient on SSI while inpatient -Will check A1c -Continue Gabapentin 5.CKD IV: -Creatinine stable on admission 6. Dyslipidemia: -Will continue home atorvastatin. 7. Mood disorder: -Continue Citalopram 8. GERD: -Continue home Pantoprazole 9. Gout: -Continue Allopurinol 10. Vitamin B12 deficiency: -Continue supplementation PRN Pain and Bowel regimen ordered Dipso: Patient did not pass PT and is pending placement or home with 31/01 care VS, I&O, 24H, Fishbone Vital Signs/I&O Vital Signs Date Time Temp Pulse Resp B/P (MAP) Pulse Ox O2 Delivery O2 Flow Rate FiO2 05/03/19 14:15 66 96 05/03/19 14:00 129/61 (83) 05/03/19 12:00 Room Air 05/03/19 06:49 20 05/03/19 02:35 97.7 I&O- Last 24 Hours up to 6 AM 05/03/19 06:00 Intake Total 1200 ml Balance 1200 ml Laboratory Data 24H LABS Laboratory Tests 2 05/02/19 15:34: Urine Color YELLOW, Urine Appearance HAZY, Urine pH 5.0, Urine Specific [place] 1.012, Urine Protein NEGATIVE, Urine Glucose (UA) NEGATIVE, Urine Ketones NEGATIVE, Urine Blood 1+H, Urine Nitrite NEGATIVE, Urine Bilirubin NEGATIVE, Urine Urobilinogen 0.2, Urine Leukocyte Esterase 2+H, Urine WBC (Auto) 21H, Urine RBC (Auto) 4H, Urine Hyaline Casts (Auto) 1, Urine Bacteria (Auto) NEGATIVE, Urine Squamous Epithelial Cells 1, Urine Mucus (Auto) SMALL, Urine Sperm (Auto) 05/02/19 20:14: Lactic Acid Followup at 4 Hours 1.3, Magnesium Level 2.4 05/02/19 21:31: Bedside Glucose (Misc Panel) 102 05/03/19 06:38: Nucleated Red Blood Cells % (auto) 0.0, Anion Gap 7L, Glomerular Filtration Rate 31.1L, Calcium Level 8.5L 05/03/19 07:13: Bedside Glucose (Misc Panel) 82L 05/03/19 12:07: Bedside Glucose (Misc Panel) 118H CBC/BMP Laboratory Tests 05/03/19 06:38 Microbiology Microbiology 05/02/19 Urine Culture, Received Pending GME ATTESTATION GME ATTESTATION My faculty preceptor for this patient encounter was physically present during the encounter and was fully available. All aspects of the patient interview, examination, medical decision making process, and medical care plan development were reviewed and approved by the faculty preceptor. The faculty preceptor is aware and concurs with the plan as stated in the body of this note and will attest to such by his/her cosignature. ATTENDING NOTE I, Horace Ramírez, have independently examined this patient and performed my own physical exam, as well as reviewed the documentation and edited where necessary. I have discussed in detail with the resident / student the findings and plan of treatment as documented by the resident / student and edited their note. I agree with their findings and treatment plan and have edited their documentation. I will continue to follow the patient during this hospital stay. EARL DESAI MD May 03, 2019 14:51 HORACE RAMÍREZ MD May 03, 2019 17:08
[2019-05-03 15:02] VITALS: BP 126/53
[2019-05-03 18:00] VITALS: BP 135/61
[2019-05-03 19:45] VITALS: BP 120/58
[2019-05-03] MEDS: LATANOPROST 0.005% OPHTH SOLN 2.5 ML OU SCH (20:22)
[2019-05-04 06:00] VITALS: BP_SYST 115; BP_SYST 155; BP_DIAS 59
[2019-05-04 06:19] LABS: HEMATOCRIT 26.1 % (36.0-47.0); MEAN CORPUSCULAR HEMOGLOBIN 33.5 pg (27.0-33.0); MEAN CORPUSCULAR HGB CONC 34.5 g/dl (32.0-36.5); PLATELET COUNT, AUTOMATED 176 10^3/uL (150-450); RED BLOOD COUNT 2.69 10^6/uL (4.00-5.40); WHITE BLOOD COUNT 7.5 10^3/uL (4.0-10.0)
[2019-05-04 06:40] LABS: HEMOGLOBIN A1c 5.2 %
[2019-05-04 06:45] LABS: CALCIUM LEVEL 8.3 MG/DL (8.8-10.2); CREATININE FOR GFR 1.63 MG/DL (0.55-1.30); GLOMERULAR FILTRATION RATE 32.4 (>39); POTASSIUM SERUM 3.7 MEQ/L (3.5-5.1)
[2019-05-04] MEDS: HumaLOG INSULIN (NovoLOG) PER UNIT SC SCH ×2 (07:29→12:15)
[2019-05-04] MEDS ORDERED: SODIUM CHLORIDE 0.9% 1000ML IV ONE (08:00)
[2019-05-04 08:21] LABS: MAGNESIUM LEVEL 1.7 MG/DL (1.8-2.4)
[2019-05-04 08:24] VITALS: BP 115/59
[2019-05-04] MEDS: amLODIPine 5 MG TAB PO SCH (08:24)
[2019-05-04] MEDS: GABAPENTIN 400 MG CAP PO SCH (08:24)
[2019-05-04] MEDS: ALLOPURINOL 100 MG TAB PO SCH (08:24)
[2019-05-04] MEDS: ATORVASTATIN 20 MG TAB PO SCH (08:24)
[2019-05-04] MEDS: CitaloPRAM (CeleXA) 20 MG TAB PO SCH (08:24)
[2019-05-04] MEDS: CYANOCOBALAMIN 500 MCG TAB PO SCH (08:24)
[2019-05-04] MEDS: PANTOPRAZOLE 40MG TAB (PROTONIX) PO SCH (08:24)
[2019-05-04] MEDS: DOCUSATE SODIUM 100 MG CAP PO SCH (08:24)
[2019-05-04] MEDS ORDERED: CEFDINIR 300 MG CAP (OMNICEF) PO SCH (09:00)
[2019-05-04 10:00] VITALS: BP 139/63
--- NOTE | 2019-05-04 11:06 | IPNPDOC ---
Date Seen The patient was seen on 05/04/19. Progress Note SUBJECTIVE: Patient has no complaints this morning. No events reported overnight. OBJECTIVE PHYSICAL EXAMINATION: VITAL SIGNS: Please see below. GENERAL APPEARANCE: Laying in bed, appears stated age, no acute distress, calm, cooperative, requires repeated information as she forgets within 10 minutes HEENT: EOMI, PERRLA, neck is supple with no thyromegaly or lymphadenopathy RESPIRATORY: Lungs are clear to auscultation bilaterally with no adventitious breath sounds appreciated CARDIOVASCULAR: no JVD, RRR,no murmurs/rubs/gallops ABDOMEN: Soft, nontender to palpation in all four quadrants, no masses/organomegaly EXTREMITIES: no clubbing, cyanosis or edema noted NEUROLOGICAL: No obvious focal deficits PSYCHIATRIC: Very tangential, forgetful, oriented only to place and person, not to time Skin: No rashes or ulcers. LN: No significant cervical or inguinal lymphadenopathy LABORATORY DATA: See below. MICROBIOLOGY: Please see below. ASSESSMENT: This is a 78-year-old female, past medical history of hypertension and diabetes who presents with hypotension and hypomagnesemia in the setting of possible medication overdose. Patient has not seen her PCP since her last admission one year ago. PLAN: 1. Hypotension: Resolved. Patient's blood pressure on admission was found to be 74/45, and she responded to 1 L fluid bolus and is now up to 126/61 - Etiology: Possibly 2/2 inappropriate consumption of BP medications, less likely 2/2 infectious etiology -500 mL fluid bolus this morning. -Home BP med restarted (Amlodipine) due to hypertension 2. UTI: -Urine culture grew Klebsiella sensitive to cefdinir. 5 day course started 3. Hypomagnesemia: Patient's magnesium was found to be 0.9 on admission. -Resolved. Mg today within normal limits 4. Dementia-like symptoms: Patient is very forgetful on exam today. Her son reports this is her baseline. She does not have an official diagnosis of dementia or Alzheimer's in her history. -Fall precautions and frequent redirection necessary 5. DM2 and peripheral neuropathy: -Will start the patient on SSI while inpatient -A1c 5.2 -Continue Gabapentin 6.CKD IV: -Creatinine stable on admission 7. Dyslipidemia: -Will continue home atorvastatin. 8. Mood disorder: -Continue Citalopram 9. GERD: -Continue home Pantoprazole 10. Gout: -Continue Allopurinol 11. Vitamin B12 deficiency: -Continue supplementation PRN Pain and Bowel regimen ordered Dipso: Patient is pending placement VS, I&O, 24H, Fishbone Vital Signs/I&O Vital Signs Date Time Temp Pulse Resp B/P (MAP) Pulse Ox O2 Delivery O2 Flow Rate FiO2 05/04/19 08:24 64 115/59 05/04/19 06:00 97.8 18 98 05/03/19 19:45 Room Air I&O- Last 24 Hours up to 6 AM 05/04/19 06:00 Intake Total 2300 ml Output Total 0 ml Balance 2300 ml Laboratory Data 24H LABS Laboratory Tests 2 05/03/19 12:07: Bedside Glucose (Misc Panel) 118H 05/03/19 16:44: Bedside Glucose (Misc Panel) 131H 05/03/19 19:47: Bedside Glucose (Misc Panel) 104 05/04/19 05:32: Nucleated Red Blood Cells % (auto) 0.0, Anion Gap 7L, Glomerular Filtration Rate 32.4L, Estimated Mean Plasma Glucose 103, Hemoglobin A1c 5.2, Calcium Level 8.3L, Magnesium Level 1.7L CBC/BMP Laboratory Tests 05/04/19 05:32 Microbiology Microbiology 05/02/19 Urine Culture - Final, Complete Klebsiella Pneumoniae GME ATTESTATION GME ATTESTATION My faculty preceptor for this patient encounter was physically present during the encounter and was fully available. All aspects of the patient interview, e xamination, medical decision making process, and medical care plan development were reviewed and approved by the faculty preceptor. The faculty preceptor is aware and concurs with the plan as stated in the body of this note and will attest to such by his/her cosignature. EARL DESAI MD May 04, 2019 11:06
[2019-05-04] MEDS ORDERED: CEFD300CAP PO (11:45)
--- NOTE | 2019-05-04 11:57 | DS.PDOC ---
Discharge Summary General Date of Admission May 02, 2019 at 18:33 Date of Discharge May 04, 2019 Attending Physician: HORACE RAMÍREZ MD Discharge Summary PROCEDURES PERFORMED DURING STAY: [None]. ADMITTING DIAGNOSES: 1. Weakness 2. Hypotension. 3. Hypomagnesemia 4. Alzheimer's dementia DISCHARGE DIAGNOSES: 1. Alzheimer's dementia COMPLICATIONS/CHIEF COMPLAINT: Hypomagnesmia; Hypotension. HISTORY OF PRESENT ILLNESS: Kaia Reddy is a 78-year-old pleasantly demented female with history of hypertension and diabetes who presents to the ED for an episode of weakness and dizziness in which she felt her "feet didn't work." The patient woke up this morning, ate breakfast and went out with her son as normal. She did take all of her medications. When she was leaving the store she had an episode where she felt lightheaded and dizzy, and her son had to help her to the car. This episode lasted about 20 minutes. After which he drove her to the hospital. Was no loss of consciousness or seizure activity reported. Her son Mariusz is present with her today on exam.. He reports that the patient lives alone and manages all of her medications on her own. Her son checks in on her once every other day and she tends to miss doses of her medications at least once or twice a week. He also reports that she has not been eating well. No reports of any recent illness, including fevers, chills, nausea, vomiting or diarrhea. The patient has not seen her PCP since her last admission in November 2017. She is unable to answer any questions regarding her medications or medical conditions. The patient has poor short-term memory, but has never been diagnosed with any neurologic disease. The patient presented to the ED and was found to have a blood pressure of 74/45, and magnesium level at 0.9. Her blood pressure responded to 1 L of fluid and came up to 100/55, and she is currently undergoing magnesium replacement via IV. Hospitalist team was called to admit her for hypotension in the setting of possible medication overdose. HOSPITAL COURSE: Patient was admitted and found to be hypotensive at 74/45. She was responsive to fluids and blood pressure improved to 100/55. Magnesium was replaced via IV. She was started on sliding scale insulin and home diabetic medications were discontinued. She remained normotensive and euglycemic during her hospitalization. She also had no acute events on this hospitalization. On hospital day 2, she failed physical therapy evaluation due to impulsivity. On hospital day 3 she again worked with physical therapy and was cleared to go home with a 4 wheeled walker and home assistance. Her medications were revised on discharge. Is likely her event of weakness and hypotension was due to medication overdose. DISCHARGE MEDICATIONS: Please see below. ALLERGIES: Please see below. PHYSICAL EXAMINATION ON DISCHARGE: VITAL SIGNS: Please see below. GENERAL APPEARANCE: Laying in bed, appears stated age, no acute distress, calm, cooperative, requires repeated information as she forgets within 10 minutes HEENT: EOMI, PERRLA, neck is supple with no thyromegaly or lymphadenopathy RESPIRATORY: Lungs are clear to auscultation bilaterally with no adventitious breath sounds appreciated CARDIOVASCULAR: no JVD, RRR,no murmurs/rubs/gallops ABDOMEN: Soft, nontender to palpation in all four quadrants, no masses/organomegaly EXTREMITIES: no clubbing, cyanosis or edema noted NEUROLOGICAL: No obvious focal deficits PSYCHIATRIC: Very tangential, forgetful, oriented only to place and person, not to time Skin: No rashes or ulcers. LN: No significant cervical or inguinal lymphadenopathy LABORATORY DATA: Please see below. IMAGING: CXR: No acute pulmonary disease. CT Abd/pelvis: No acute abnormalities. Status post cholecystectomy. Sigmoid diverticulosis without acute diverticulitis. Bilateral renal cysts. No free air or free fluid. PROGNOSIS: Fair ACTIVITY: [As tolerated]. DIET: Consistent carbohydrate DISCHARGE PLAN: Home with assistance DISPOSITION: . DISCHARGE INSTRUCTIONS: 1. Please follow-up with your PCP in 7 days 2. Remain complaint with treatment plan and medications 3. Return to the ER if you experience any problems ITEMS TO FOLLOWUP ON ON OUTPATIENT: 1. None DISCHARGE CONDITION: [Stable]. TIME SPENT ON DISCHARGE: Greater than 30 minutes. Vital Signs/I&Os Vital Signs Date Time Temp Pulse Resp B/P (MAP) Pulse Ox O2 Delivery O2 Flow Rate FiO2 05/04/19 10:00 97.0 59 15 139/63 (88) 99 Room Air I&O- Last 24 Hours up to 6 AM 05/04/19 06:00 Intake Total 2300 ml Output Total 0 ml Balance 2300 ml Laboratory Data Labs 24H Laboratory Tests 2 05/03/19 12:07: Bedside Glucose (Misc Panel) 118H 05/03/19 16:44: Bedside Glucose (Misc Panel) 131H 05/03/19 19:47: Bedside Glucose (Misc Panel) 104 05/04/19 05:32: Nucleated Red Blood Cells % (auto) 0.0, Anion Gap 7L, Glomerular Filtration Rate 32.4L, Estimated Mean Plasma Glucose 103, Hemoglobin A1c 5.2, Calcium Level 8.3L, Magnesium Level 1.7L 05/04/19 11:37: Bedside Glucose (Misc Panel) 128H CBC/BMP Laboratory Tests 05/04/19 05:32 FSBS Laboratory Tests Test 05/03/19 12:07 05/03/19 16:44 05/03/19 19:47 05/04/19 11:37 Range/Units Bedside Glucose (Misc Panel) 118 131 104 128 83-110 MG/DL Microbiology Microbiology 05/02/19 Urine Culture - Final, Complete Klebsiella Pneumoniae Discharge Medications Scheduled Allopurinol (Allopurinol) 100 Mg Tab, 100 MG PO DAILY, (Reported) Amlodipine Besylate (Norvasc) 5 Mg Tablet, 5 MG PO DAILY, (Reported) Atorvastatin Calcium (Atorvastatin Calcium) 20 Mg Tab, 20 MG PO DAILY, (Reported) Calcium Carbonate/Vitamin D3 (Calcium 600-Vit D3 200 Tablet) 1 Tab Tab, 1 TAB PO BID, (Reported) Cefdinir (Cefdinir) 300 Mg Capsule, 300 MG PO DAILY Citalopram Hydrobromide (Citalopram HBr) 20 Mg Tab, 20 MG PO DAILY, (Reported) Cyanocobalamin (Vitamin B-12) (Vitamin B-12) 500 Mcg Tab, 500 MCG PO DAILY, (Reported) Gabapentin (Neurontin) 600 Mg Tab, 1,200 MG PO BID, (Reported) Latanoprost (Xalatan) 0.005% 2.5ML Drops, 1 DROP OU QHS, (Reported) Multivitamin (Multivitamins) 1 Cap Cap, 1 CAP PO DAILY, (Reported) Pantoprazole Sodium (Protonix) 40 Mg Tab, 40 MG PO DAILY, (Reported) Sitagliptin (Januvia) 50 Mg Tab, 50 MG PO DAILY, (Reported) Vit A/Vit C/Vit E/Zinc/Copper (Icaps Areds Softgel) 1 Each Capsule, 1 CAP PO DAILY, (Reported) Allergies Coded Allergies: Sulfa (Sulfonamide Antibiotics) (Verified Allergy, Unknown, 05/02/19) codeine (Verified Allergy, Unknown, 05/02/19) erythromycin base (Verified Allergy, Unknown, 05/02/19) meperidine (Verified Allergy, Unknown, 05/02/19) pentazocine (Verified Allergy, Unknown, 05/02/19) GME ATTESTATION GME ATTESTATION My faculty preceptor for this patient encounter was physically present during the encounter and was fully available. All aspects of the patient interview, examination, medical decision making process, and medical care plan development were reviewed and approved by the faculty preceptor. The faculty preceptor is aware and concurs with the plan as stated in the body of this note and will attest to such by his/her cosignature. ATTENDING NOTE I, Horace Ramírez, have independently examined this patient and performed my own physical exam, as well as reviewed the documentation and edited where necessary. I have discussed in detail with the resident / student the findings and plan of treatment as documented by the resident / student and edited their note. I agree with their findings and treatment plan and have edited their documentation. I will continue to follow the patient during this hospital stay. Time spent on discharge: - 35 minutes EARL DESAI MD May 04, 2019 11:57 HORACE RAMÍREZ MD May 04, 2019 16:01
== END 2019-05-04 13:13 | disposition home or self-care (01) | DRG 315 ==
LOC: M ED 13:49 → M ED INP 18:33 → M MSPAV 05-03 14:50
PROVIDERS: ADMIT Internal Medicine; ATTEND Internal Medicine
DX: I95.9 Hypotension, unspecified (principal); N18.4 Chronic kidney disease, stage 4 (severe); N39.0 Urinary tract infection, site not specified; F02.80 Dementia in other diseases classified elsewhere, unspecified severity, without behavioral disturbance, psychotic disturbance, mood disturbance, and anxiety; E83.42 Hypomagnesemia; E11.42 Type 2 diabetes mellitus with diabetic polyneuropathy; E11.22 Type 2 diabetes mellitus with diabetic chronic kidney disease; G30.9 Alzheimer's disease, unspecified; E78.5 Hyperlipidemia, unspecified; F39 Unspecified mood [affective] disorder; K21.9 Gastro-esophageal reflux disease without esophagitis; M10.9 Gout, unspecified; Z79.899 Other long term (current) drug therapy; Z88.2 Allergy status to sulfonamides; Z88.5 Allergy status to narcotic agent; Z88.1 Allergy status to other antibiotic agents; Z88.8 Allergy status to other drugs, medicaments and biological substances; T46.3X5A Adverse effect of coronary vasodilators, initial encounter; T44.7X5A Adverse effect of beta-adrenoreceptor antagonists, initial encounter; Z79.84 Long term (current) use of oral hypoglycemic drugs; Z90.49 Acquired absence of other specified parts of digestive tract; Z98.1 Arthrodesis status; Z90.79 Acquired absence of other genital organ(s); K58.9 Irritable bowel syndrome, unspecified; E11.51 Type 2 diabetes mellitus with diabetic peripheral angiopathy without gangrene; F41.8 Other specified anxiety disorders; M19.90 Unspecified osteoarthritis, unspecified site; F17.210 Nicotine dependence, cigarettes, uncomplicated; B96.1 Klebsiella pneumoniae [K. pneumoniae] as the cause of diseases classified elsewhere; E53.8 Deficiency of other specified B group vitamins; Z98.0 Intestinal bypass and anastomosis status

== ENCOUNTER → 2019-06-04 | Outpatient (REF) | payer MEDICARE, OTHER ==
[~2019-06-04] MED LIST changes: +CEFD300CAP PO; +ICAPCAP2 PO; +NORV5TAB PO; +XALA0.007 OU
[2019-06-04 15:53] LABS: HEMATOCRIT 35.9 % (36.0-47.0); HEMOGLOBIN 12.3 g/dl (12.0-15.5); MEAN CORPUSCULAR HEMOGLOBIN 33.2 pg (27.0-33.0); MEAN CORPUSCULAR HGB CONC 34.3 g/dl (32.0-36.5); PLATELET COUNT, AUTOMATED 297 10^3/uL (150-450); WHITE BLOOD COUNT 10.8 10^3/uL (4.0-10.0)
[2019-06-04 16:31] LABS: ALBUMIN 3.7 GM/DL (3.2-5.2); BILIRUBIN,TOTAL 0.4 MG/DL (0.2-1.0); CALCIUM LEVEL 9.4 MG/DL (8.8-10.2); CHOLESTEROL RISK RATIO 2.612 (<5); CREATININE FOR GFR 1.82 MG/DL (0.55-1.30); GLOMERULAR FILTRATION RATE 28.5 (>39); MAGNESIUM LEVEL 1.3 MG/DL (1.8-2.4); POTASSIUM SERUM 4.3 MEQ/L (3.5-5.1); THYROID STIMULATING HORMONE 1.99 uIU/ML (0.358-3.740); TOTAL PROTEIN 6.9 GM/DL (6.4-8.2); URIC ACID 5.1 MG/DL (2.6-6.0)
[2019-06-04 16:33] LABS: PTH INTACT 112.8 PG/ML (18.5-88.0)
== END ==
LOC: M SFHCPLAZ 13:50
PROVIDERS: ATTEND Internal Medicine
DX: I12.9 Hypertensive chronic kidney disease with stage 1 through stage 4 chronic kidney disease, or unspecified chronic kidney disease (principal); E78.00 Pure hypercholesterolemia, unspecified; N18.4 Chronic kidney disease, stage 4 (severe); F03.90 Unspecified dementia, unspecified severity, without behavioral disturbance, psychotic disturbance, mood disturbance, and anxiety; F41.8 Other specified anxiety disorders; M10.9 Gout, unspecified

== ENCOUNTER → 2019-08-03 | Outpatient (REF) ==
[~2019-08-03] MED LIST changes: +GABA600T4 PO; +OLOP0.1D OU
[2019-08-03 10:47] LABS: HEMATOCRIT 33.6 % (36.0-47.0); HEMOGLOBIN 11.5 g/dl (12.0-15.5); MEAN CORPUSCULAR HEMOGLOBIN 33.2 pg (27.0-33.0); MEAN CORPUSCULAR HGB CONC 34.2 g/dl (32.0-36.5); MEAN CORPUSCULAR VOLUME 97.1 fl (80.0-96.0); PLATELET COUNT, AUTOMATED 261 10^3/uL (150-450); RED BLOOD COUNT 3.46 10^6/uL (4.00-5.40); WHITE BLOOD COUNT 7.2 10^3/uL (4.0-10.0)
[2019-08-03 11:09] LABS: CREATININE FOR GFR 1.63 MG/DL (0.55-1.30); GLOMERULAR FILTRATION RATE 32.3 (>32); POTASSIUM SERUM 3.8 MEQ/L (3.5-5.1)
== END ==
PROVIDERS: ATTEND Family Medicine
DX: N18.9 Chronic kidney disease, unspecified (principal)

== ENCOUNTER → 2019-08-10 | Outpatient (REF) ==
[2019-08-10 09:56] LABS: HEMOGLOBIN 11.4 g/dl (12.0-15.5); MEAN CORPUSCULAR HEMOGLOBIN 32.9 pg (27.0-33.0); MEAN CORPUSCULAR HGB CONC 34.5 g/dl (32.0-36.5); MEAN CORPUSCULAR VOLUME 95.1 fl (80.0-96.0); PLATELET COUNT, AUTOMATED 232 10^3/uL (150-450); RED BLOOD COUNT 3.47 10^6/uL (4.00-5.40); WHITE BLOOD COUNT 7.1 10^3/uL (4.0-10.0)
[2019-08-10 10:20] LABS: CALCIUM LEVEL 8.8 MG/DL (8.8-10.2); CREATININE FOR GFR 1.53 MG/DL (0.55-1.30); GLOMERULAR FILTRATION RATE 34.8 (>32)
== END ==
PROVIDERS: ATTEND Family Medicine
DX: N18.9 Chronic kidney disease, unspecified (principal)

== ENCOUNTER → 2019-08-17 | Outpatient (REF) ==
[2019-08-17 14:10] LABS: HEMATOCRIT 38.5 % (36.0-47.0); HEMOGLOBIN 12.8 g/dl (12.0-15.5); MEAN CORPUSCULAR HEMOGLOBIN 31.9 pg (27.0-33.0); MEAN CORPUSCULAR HGB CONC 33.2 g/dl (32.0-36.5); PLATELET COUNT, AUTOMATED 255 10^3/uL (150-450); RED BLOOD COUNT 4.01 10^6/uL (4.00-5.40); WHITE BLOOD COUNT 9.6 10^3/uL (4.0-10.0)
[2019-08-17 14:33] LABS: CALCIUM LEVEL 9.9 MG/DL (8.8-10.2); CREATININE FOR GFR 1.67 MG/DL (0.55-1.30); GLOMERULAR FILTRATION RATE 31.4 (>32); POTASSIUM SERUM 4.3 MEQ/L (3.5-5.1)
== END ==
PROVIDERS: ATTEND Family Medicine
DX: N18.9 Chronic kidney disease, unspecified (principal)

== ENCOUNTER → 2019-09-11 | Outpatient (REF) ==
[2019-09-11 11:11] LABS: HEMATOCRIT 30.7 % (36.0-47.0); MEAN CORPUSCULAR HGB CONC 35.8 g/dl (32.0-36.5); MEAN CORPUSCULAR VOLUME 92.2 fl (80.0-96.0); PLATELET COUNT, AUTOMATED 232 10^3/uL (150-450); RED BLOOD COUNT 3.33 10^6/uL (4.00-5.40); WHITE BLOOD COUNT 9.4 10^3/uL (4.0-10.0)
[2019-09-11 11:43] LABS: CALCIUM LEVEL 8.8 MG/DL (8.8-10.2); CREATININE FOR GFR 1.43 MG/DL (0.55-1.30); GLOMERULAR FILTRATION RATE 37.6 (>32); POTASSIUM SERUM 4.1 MEQ/L (3.5-5.1)
== END ==
PROVIDERS: ATTEND Family Medicine
DX: N18.9 Chronic kidney disease, unspecified (principal)

== ENCOUNTER → 2019-10-17 | Outpatient (REF) ==
[2019-10-17 13:17] LABS: HEMATOCRIT 33.4 % (36.0-47.0); MEAN CORPUSCULAR HGB CONC 35.9 g/dl (32.0-36.5); MEAN CORPUSCULAR VOLUME 91.8 fl (80.0-96.0); PLATELET COUNT, AUTOMATED 241 10^3/uL (150-450); RED BLOOD COUNT 3.64 10^6/uL (4.00-5.40); WHITE BLOOD COUNT 7.5 10^3/uL (4.0-10.0)
[2019-10-17 13:55] LABS: CALCIUM LEVEL 9.6 MG/DL (8.8-10.2); CREATININE FOR GFR 1.46 MG/DL (0.55-1.30); GLOMERULAR FILTRATION RATE 36.7 (>32); POTASSIUM SERUM 4.5 MEQ/L (3.5-5.1)
== END ==
PROVIDERS: ATTEND Family Medicine
DX: N18.9 Chronic kidney disease, unspecified (principal)

== ENCOUNTER → 2019-11-12 | Outpatient (REF) ==
[2019-11-12 11:24] LABS: HEMATOCRIT 37.8 % (36.0-47.0); HEMOGLOBIN 13.2 g/dl (12.0-15.5); MEAN CORPUSCULAR HEMOGLOBIN 31.9 pg (27.0-33.0); MEAN CORPUSCULAR HGB CONC 34.9 g/dl (32.0-36.5); MEAN CORPUSCULAR VOLUME 91.3 fl (80.0-96.0); PLATELET COUNT, AUTOMATED 282 10^3/uL (150-450); RED BLOOD COUNT 4.14 10^6/uL (4.00-5.40); WHITE BLOOD COUNT 7.4 10^3/uL (4.0-10.0)
[2019-11-12 11:44] LABS: CALCIUM LEVEL 9.4 MG/DL (8.8-10.2); CREATININE FOR GFR 1.23 MG/DL (0.55-1.30); GLOMERULAR FILTRATION RATE 44.7 (>32); POTASSIUM SERUM 4.3 MEQ/L (3.5-5.1)
== END ==
PROVIDERS: ATTEND Family Medicine
DX: N18.9 Chronic kidney disease, unspecified (principal)

== ENCOUNTER → 2019-11-26 | Outpatient (REF) | PROVIDERS: ATTEND Internal Medicine | DX: Z03.818 Encounter for observation for suspected exposure to other biological agents ruled out (principal) ==

== ENCOUNTER → 2019-12-10 | Outpatient (REF) ==
[2019-12-10 10:39] LABS: HEMATOCRIT 30.7 % (36.0-47.0); HEMOGLOBIN 10.8 g/dl (12.0-15.5); MEAN CORPUSCULAR HEMOGLOBIN 32.4 pg (27.0-33.0); MEAN CORPUSCULAR HGB CONC 35.2 g/dl (32.0-36.5); MEAN CORPUSCULAR VOLUME 92.2 fl (80.0-96.0); PLATELET COUNT, AUTOMATED 257 10^3/uL (150-450); RED BLOOD COUNT 3.33 10^6/uL (4.00-5.40); WHITE BLOOD COUNT 7.7 10^3/uL (4.0-10.0)
[2019-12-10 11:07] LABS: CALCIUM LEVEL 8.8 MG/DL (8.8-10.2); CREATININE FOR GFR 1.33 MG/DL (0.55-1.30); GLOMERULAR FILTRATION RATE 40.9 (>32); POTASSIUM SERUM 4.2 MEQ/L (3.5-5.1)
== END ==
PROVIDERS: ATTEND Family Medicine
DX: N18.9 Chronic kidney disease, unspecified (principal)

== ENCOUNTER → 2019-12-17 | Outpatient (REF) ==
[2019-12-17 10:37] LABS: HEMOGLOBIN A1c 5.9 %
[2019-12-17 10:47] LABS: ALBUMIN 3.4 GM/DL (3.2-5.2); BILIRUBIN,TOTAL 0.5 MG/DL (0.2-1.0); CALCIUM LEVEL 8.7 MG/DL (8.8-10.2); CREATININE FOR GFR 1.72 MG/DL (0.55-1.30); GLOMERULAR FILTRATION RATE 30.4 (>32); POTASSIUM SERUM 4.7 MEQ/L (3.5-5.1); THYROID STIMULATING HORMONE 1.35 uIU/ML (0.358-3.740); TOTAL PROTEIN 6.3 GM/DL (6.4-8.2)
== END ==
PROVIDERS: ATTEND Family Medicine
DX: R63.5 Abnormal weight gain (principal)

== ENCOUNTER → 2019-12-20 | Outpatient (REF) ==
[2019-12-20 09:52] LABS: CALCIUM LEVEL 9.2 MG/DL (8.8-10.2); CREATININE FOR GFR 1.35 MG/DL (0.55-1.30); GLOMERULAR FILTRATION RATE 40.2 (>32); POTASSIUM SERUM 4.6 MEQ/L (3.5-5.1)
== END ==
PROVIDERS: ATTEND Family Medicine
DX: N18.9 Chronic kidney disease, unspecified (principal)

== ENCOUNTER → 2020-01-02 | Outpatient (REF) ==
[~2020-01-02] MED LIST changes: +ACET1TAB55 PO; +AMLO1TAB24; +AMLO1TAB24 PO; -AMLO5TAB6; -AMLO5TAB6 PO; -ASPI81TA85 PO; +ASPI81TA86 PO; +AZEL0.05 OU; +BISA10SU PR; +CALC-212 PO; -CALC600T7 PO; +CEPH500C PO; +CYAN500T14 PO; -CYAN500T8 PO; +ENEMENE PR; +GABA-845 PO; +ISOS1TAB36 PO; -ISOS60TA2 PO; +JANU25TA PO; -LISI20TA19 PO; +LISI20TA35 PO; +MILKSUS3 PO; +MIRT-62 PO; +PRESCAP PO; +SERT50TA29 PO
[2020-01-02 11:29] LABS: BASO % 0.4 % (0.0-1.0); EOS # 0.1 10^3/uL (0.0-0.5); EOS % 2.1 % (0.0-3.0); HEMATOCRIT 33.6 % (36.0-47.0); HEMOGLOBIN 11.7 g/dl (12.0-15.5); LYMPH # 1.3 10^3/uL (1.5-5.0); LYMPH % 19.6 % (24.0-44.0); MEAN CORPUSCULAR HEMOGLOBIN 32.1 pg (27.0-33.0); MEAN CORPUSCULAR HGB CONC 34.8 g/dl (32.0-36.5); MEAN CORPUSCULAR VOLUME 92.3 fl (80.0-96.0); MONO # 0.7 10^3/uL (0.0-0.8); MONO % 9.8 % (0.0-5.0); NEUTROPHILS # 4.6 10^3/uL (1.5-8.5); NEUTROPHILS % 67.7 % (36.0-66.0); PLATELET COUNT, AUTOMATED 260 10^3/uL (150-450); RED BLOOD COUNT 3.64 10^6/uL (4.00-5.40); WHITE BLOOD COUNT 6.7 10^3/uL (4.0-10.0)
[2020-01-02 12:00] LABS: CALCIUM LEVEL 9.2 MG/DL (8.8-10.2); CREATININE FOR GFR 1.58 MG/DL (0.55-1.30); GLOMERULAR FILTRATION RATE 33.5 (>32); POTASSIUM SERUM 4.3 MEQ/L (3.5-5.1)
== END ==
PROVIDERS: ATTEND Family Medicine
DX: N18.9 Chronic kidney disease, unspecified (principal)

== ENCOUNTER → 2020-01-14 | Outpatient (REF) ==
[~2020-01-14] MED LIST changes: -ACET1TAB55 PO; -AMLO1TAB24; -AMLO1TAB24 PO; +AMLO5TAB6; +AMLO5TAB6 PO; +ASPI81TA85 PO; -ASPI81TA86 PO; -AZEL0.05 OU; -BISA10SU PR; -CALC-212 PO; +CALC600T7 PO; -CEPH500C PO; -CYAN500T14 PO; +CYAN500T8 PO; -ENEMENE PR; -GABA-845 PO; -ISOS1TAB36 PO; +ISOS60TA2 PO; -JANU25TA PO; +LISI20TA19 PO; -LISI20TA35 PO; -MILKSUS3 PO; -MIRT-62 PO; -PRESCAP PO; -SERT50TA29 PO
[2020-01-14 09:51] LABS: HEMATOCRIT 33.7 % (36.0-47.0); HEMOGLOBIN 11.8 g/dl (12.0-15.5); MEAN CORPUSCULAR HEMOGLOBIN 32.3 pg (27.0-33.0); MEAN CORPUSCULAR VOLUME 92.3 fl (80.0-96.0); PLATELET COUNT, AUTOMATED 255 10^3/uL (150-450); RED BLOOD COUNT 3.65 10^6/uL (4.00-5.40); WHITE BLOOD COUNT 6.9 10^3/uL (4.0-10.0)
[2020-01-14 10:21] LABS: CALCIUM LEVEL 9.2 MG/DL (8.8-10.2); CREATININE FOR GFR 1.6 MG/DL (0.55-1.30); POTASSIUM SERUM 4.4 MEQ/L (3.5-5.1)
== END ==
PROVIDERS: ATTEND Family Medicine
DX: N18.9 Chronic kidney disease, unspecified (principal)

== ENCOUNTER → 2020-03-20 | Outpatient (REF) | payer MEDICARE, OTHER ==
[~2020-03-20] MED LIST changes: +ACET1TAB55 PO; +AMLO1TAB24; +AMLO1TAB24 PO; -AMLO5TAB6; -AMLO5TAB6 PO; -ASPI81TA85 PO; +ASPI81TA86 PO; +AZEL0.05 OU; +BISA10SU PR; +CALC-212 PO; -CALC600T7 PO; +CEPH500C PO; +ENEMENE PR; +GABA-845 PO; +JANU25TA PO; -LISI20TA19 PO; +LISI20TA35 PO; +MILKSUS3 PO; +PRESCAP PO; +REME15TA PO; +SERT50TA29 PO
[2020-03-20 10:57] LABS: HEMATOCRIT 35.4 % (36.0-47.0); HEMOGLOBIN 12.6 g/dl (12.0-15.5); MEAN CORPUSCULAR HEMOGLOBIN 33.1 pg (27.0-33.0); MEAN CORPUSCULAR HGB CONC 35.6 g/dl (32.0-36.5); MEAN CORPUSCULAR VOLUME 92.9 fl (80.0-96.0); PLATELET COUNT, AUTOMATED 241 10^3/uL (150-450); RED BLOOD COUNT 3.81 10^6/uL (4.00-5.40); WHITE BLOOD COUNT 7.8 10^3/uL (4.0-10.0)
[2020-03-20 11:29] LABS: CALCIUM LEVEL 9.4 MG/DL (8.8-10.2); CREATININE FOR GFR 1.61 MG/DL (0.55-1.30); GLOMERULAR FILTRATION RATE 32.8 (>32)
== END ==
PROVIDERS: ATTEND Internal Medicine
DX: N18.9 Chronic kidney disease, unspecified (principal)

== ENCOUNTER 2020-04-04 03:57 | Inpatient (IN) | payer MEDICARE, OTHER ==
[2020-04-04] VITALS (54 sets, daily range): BP systolic 79–134; BP diastolic 39–63
[~2020-04-04] VITALS: Ht 167.6 cm; Wt 70.2 kg
[~2020-04-04 03:57] MED LIST changes: -ACET1TAB55 PO; -AZEL0.05 OU; -BISA10SU PR; -CEPH500C PO; -ENEMENE PR; -GABA-845 PO; -JANU25TA PO; -MILKSUS3 PO; -PRESCAP PO; -REME15TA PO; -SERT50TA29 PO
[2020-04-04] MEDS ORDERED: PIPERACILLIN/TAZOBACTAM SOD 3.375 GM in D5W MINI-BAG PLUS 50 ML IV ONE (04:15)
[2020-04-04] MEDS ORDERED: NS 1,000 ML IV ONE (04:30)
[2020-04-04 04:33] LABS: HEMATOCRIT 27.6 % (36.0-47.0); HEMOGLOBIN 9.4 g/dl (12.0-15.5); MEAN CORPUSCULAR HEMOGLOBIN 32.3 pg (27.0-33.0); MEAN CORPUSCULAR HGB CONC 34.1 g/dl (32.0-36.5); MEAN CORPUSCULAR VOLUME 94.8 fl (80.0-96.0); PLATELET COUNT, AUTOMATED 147 10^3/uL (150-450); RED BLOOD COUNT 2.91 10^6/uL (4.00-5.40); WHITE BLOOD COUNT 18.4 10^3/uL (4.0-10.0)
[2020-04-04 04:47] LABS: INR 1.22; PROTHROMBIN TIME 15.7 SECONDS (12.5-14.3)
[2020-04-04 04:48] LABS: PARTIAL THROMBOPLASTIN TIME 34.9 SECONDS (24.2-38.5)
--- NOTE | 2020-04-04 04:50 | REPVR ---
PROCEDURE INFORMATION: Exam: CT Head Without Contrast Exam date and time: 04/04/2020 4:07 AM Age: 79 years old Clinical indication: Injury or trauma; Fall; Initial encounter; Concussion / head injury TECHNIQUE: Imaging protocol: Computed tomography of the head without contrast. Radiation optimization: All CT scans at this facility use at least one of these dose optimization techniques: automated exposure control; mA and/or kV adjustment per patient size (includes targeted exams where dose is matched to clinical indication); or iterative reconstruction. COMPARISON: CT Head without contrast 06/24/2019 3:02 PM FINDINGS: Brain: Mild cerebral volume loss. No hemorrhage. Unremarkable white matter. No mass effect. Cerebral ventricles: No ventriculomegaly. Bones/joints: Unremarkable. No acute fracture. Paranasal sinuses: Visualized sinuses are unremarkable. No fluid levels. Mastoid air cells: Visualized mastoid air cells are well aerated. Soft tissues: Unremarkable. IMPRESSION: No acute intracranial abnormality. Electronically signed by: Josué Parker On 04/04/2020 04:50:30 AM
--- NOTE | 2020-04-04 04:56 | REPVR ---
PROCEDURE INFORMATION: Exam: CT Cervical Spine Without Contrast Exam date and time: 04/04/2020 4:07 AM Age: 79 years old Clinical indication: Injury or trauma; Fall; Initial encounter; Concussion /head injury TECHNIQUE: Imaging protocol: Computed tomography images of the cervical spine without contrast. Radiation optimization: All CT scans at this facility use at least one of these dose optimization techniques: automated exposure control; mA and/or kV adjustment per patient size (includes targeted exams where dose is matched to clinical indication); or iterative reconstruction. COMPARISON: No relevant prior studies available. FINDINGS: Vertebrae: Normal alignment. Advanced discogenic degenerative changes at C5-C6 and C6-C7. Multilevel facet DJD. No acute fracture. Borderline spinal stenosis at C5-C6. Soft tissues: Unremarkable. Lungs: Lung apices are normal. IMPRESSION: 1. No fracture or malalignment. 2. Degenerative spondylosis as above. Electronically signed by: Josué Parker On 04/04/2020 04:56:26 AM
[2020-04-04 05:04] LABS: LYMPHOCYTES 2 % (16-44); METAMYELOCYTES 2 % (0-0); MONOCYTES 2 % (0-5); NEUTROPHILS 81 % (28-66); PLATELET ESTIMATE NORMAL (NORMAL)
[2020-04-04 05:09] LABS: ALBUMIN 2.3 GM/DL (3.2-5.2); ALT/SGPT 15 U/L (12-78); BILIRUBIN,DIRECT 0.1 MG/DL (0.0-0.2); BILIRUBIN,TOTAL 0.3 MG/DL (0.2-1.0); BLOOD UREA NITROGEN 46 MG/DL (7-18); CALCIUM LEVEL 7.6 MG/DL (8.8-10.2); CARBON DIOXIDE LEVEL 16 MEQ/L (21-32); CHLORIDE LEVEL 110 MEQ/L (98-107); CK-MB VALUE MASS < 1.0 NG/ML (<3.6); CPK CREATINE PHOSPHOKINASE 52 U/L (26-192); CREATININE FOR GFR 3.38 MG/DL (0.55-1.30); GLOMERULAR FILTRATION RATE 13.9 (>32); GLUCOSE, FASTING 162 MG/DL (70-100); LIPASE 117 U/L (73-393); MB/CK RELATIVE INDEX 1.92 (< OR =4); POTASSIUM SERUM 3.3 MEQ/L (3.5-5.1); SODIUM LEVEL 141 MEQ/L (136-145); TOTAL PROTEIN 4.9 GM/DL (6.4-8.2); TROPONIN I 0.02 NG/ML (< 0.10)
[2020-04-04] MEDS ORDERED: IBUPROFEN 800 MG TAB PO ONE (05:15)
[2020-04-04] MEDS: HEPARIN SOD (PORCINE) 5000UNITS/ML 1ML VIAL/SYRINGE SC SCH ×3 (06:00→21:03)
[2020-04-04] MEDS ORDERED: NOREPINEPHRINE BITARTRATE 8 MG in D5W 492 ML IV SCH ×2 (06:00→18:00)
[2020-04-04] MEDS ORDERED: NS 1,500 ML in IV 1 EA IV ONE (06:15)
--- NOTE | 2020-04-04 06:16 | REPVR ---
PROCEDURE INFORMATION: Exam: CT Chest Without Contrast Exam date and time: 04/04/2020 5:50 AM Age: 79 years old Clinical indication: Fever; Additional info: Fever unknown origin, re TECHNIQUE: Imaging protocol: Computed tomography of the chest without contrast. Radiation optimization: All CT scans at this facility use at least one of these dose optimization techniques: automated exposure control; mA and/or kV adjustment per patient size (includes targeted exams where dose is matched to clinical indication); or iterative reconstruction. COMPARISON: No relevant prior studies available. FINDINGS: Lungs: Dependent subsegmental pulmonary atelectasis. Pleural space: Unremarkable. No pneumothorax. No pleural effusion. Heart: Unremarkable. No cardiomegaly. No pericardial effusion. Mediastinal space: Small gastroesophageal sliding type hiatal hernia. Aorta: Unremarkable. No aortic aneurysm. Veins: Couple scattered foci of venous gas related to intravenous line. Lymph nodes: Unremarkable. No enlarged lymph nodes. Liver: Enlarged low attenuating liver, evidence of hepatic steatosis. Bones/joints: Mild pectus excavatum chest deformity. Soft tissues: Unremarkable. IMPRESSION: No airspace consolidation, or evidence of pulmonary infection. Electronically signed by: Alen Kothari On 04/04/2020 06:15:53 AM
--- NOTE | 2020-04-04 06:19 | REPVR ---
PROCEDURE INFORMATION: Exam: CT Abdomen And Pelvis Without Contrast Exam date and time: 04/04/2020 5:50 AM Age: 79 years old Clinical indication: Fever; Additional info: Fever unknown origin, re TECHNIQUE: Imaging protocol: Computed tomography of the abdomen and pelvis without contrast. Radiation optimization: All CT scans at this facility use at least one of these dose optimization techniques: automated exposure control; mA and/or kV adjustment per patient size (includes targeted exams where dose is matched to clinical indication); or iterative reconstruction. COMPARISON: CT ABD PELVIS W/O CONTRAST 2019-05-02 15:46 FINDINGS: Limitations: Artifact related to patient's arm position limits evaluation. Liver: Normal. No mass. Gallbladder and bile ducts: Cholecystectomy clips in the right upper quadrant. Pancreas: Normal. No ductal dilation. Spleen: The spleen demonstrates punctate calcifications, consistent with remote granulomatous organism exposure. Adrenals: Unchanged adrenal gland thickening. Kidneys and ureters: Benign exophytic 2.6 cm left renal cyst. Benign 2 cm right superior renal pole exophytic cyst. Mild stranding adjacent to the upper left ureter. Left renal extrarenal pelvis with a nonobstructing dependent 7 mm calculus. 9 mm unchanged proteinaceous or hemorrhagic renal lesion. Stomach and bowel: Mild colonic diverticulosis without evidence for acute diverticulitis. Excessive fluid in the small bowel, correlate for enteritis. Moderate sigmoid diverticulosis coli. Minimal streaky stranding within the mesentery adjacent to the bowel loops. Sigmoid bowel anastomosis. Appendix: No evidence of appendicitis. Intraperitoneal space: Unremarkable. No free air. No significant fluid collection. Vasculature: Mild to moderate aortic and iliac artery atherosclerotic calcification. Lymph nodes: Unremarkable. No enlarged lymph nodes. Urinary bladder: Unremarkable as visualized. Reproductive: Hysterectomy. Bones/joints: Mild moderate lumbar spondylosis at L4-L5. Soft tissues: Abdominal wall surgical changes. IMPRESSION: 1. Mild stranding adjacent to the upper left ureter. Left renal extrarenal pelvis with a nonobstructing dependent 7 mm calculus. Correlate with urinalysis. 2. Excessive fluid in the small bowel, correlate for enteritis or partial small bowel obstruction. COMMENTS: Consistent with the [employer]'s Incidental Findings Committee white paper (J Am Iker Radiol 2018): Any incidental renal lesion less than 1 cm or classified as too small to characterize, or any incidental cystic renal lesion characterized as simple-appearing, is likely benign. No follow-up imaging is recommended for these lesions per consensus recommendations based on imaging criteria. Electronically signed by: Alen Kothari On 04/04/2020 06:19:12 AM
--- NOTE | 2020-04-04 06:22 | REPVR ---
PROCEDURE INFORMATION: Exam: XR Chest, 1 View Exam date and time: 04/04/2020 6:18 AM Age: 79 years old Clinical indication: Other: Sirs TECHNIQUE: Imaging protocol: XR of the chest Views: 1 view. COMPARISON: No relevant prior studies available. FINDINGS: Lungs: Unremarkable. No consolidation. Pleural space: Unremarkable. No pleural effusion. No pneumothorax. Heart/Mediastinum: Unremarkable. No cardiomegaly. Bones/joints: Unremarkable. IMPRESSION: No acute findings. Electronically signed by: Alen Kothari On 04/04/2020 06:22:23 AM
[2020-04-04] MEDS ORDERED: ACET1TAB55 PO (07:34)
[2020-04-04] MEDS ORDERED: ENEMENE PR (07:34)
[2020-04-04] MEDS ORDERED: PRESCAP PO (07:34)
[2020-04-04] MEDS ORDERED: AZEL0.05 OU (07:34)
[2020-04-04] MEDS ORDERED: MILKSUS3 PO (07:34)
[2020-04-04] MEDS ORDERED: SERT50TA29 PO (07:34)
[2020-04-04] MEDS ORDERED: JANU25TA PO (07:34)
[2020-04-04] MEDS ORDERED: BISA10SU PR (07:34)
[2020-04-04] MEDS ORDERED: GABA-845 PO (07:34)
[2020-04-04] MEDS ORDERED: CEFEPIME HCL 2 GM in D5W 50 ML IV SCH (08:30)
[2020-04-04] MEDS ORDERED: GLUCAGON INJ 1MG VIAL SC PRN (08:30)
[2020-04-04] MEDS ORDERED: DEXTROSE 50% 50 ML SYRINGE IV PRN (08:30)
[2020-04-04] MEDS ORDERED: D5W/0.9% SODIUM CHLORIDE 1,000 ML IV SCH (08:30)
[2020-04-04] MEDS ORDERED: GLUCOSE 4GM CHEW TABLET PO PRN (08:30)
[2020-04-04] MEDS ORDERED: CHLORHEXIDINE GLUCONATE 0.12 % 15ML UDC (PERIDEX ORAL RINSE) MT SCH (09:00)
[2020-04-04] MEDS: PANTOPRAZOLE 40MG VIAL (C9113 PER 1) IV SCH (09:00)
[2020-04-04] MEDS ORDERED: POTASSIUM CHLORIDE 10% LIQ 20 MEQ/15 ML UDC PO ONE (09:00)
[2020-04-04] MEDS ORDERED: MOM 30ML SUSPENSION UDC PO PRN (09:00)
[2020-04-04] MEDS ORDERED: VANCOMYCIN INTERMITTENT/PULSE DOSING BY CLINICAL PHARMACIST PER DOSING PROTOCOL XX SCH (09:45)
[2020-04-04 10:14] LABS: HEMATOCRIT 30.6 % (36.0-47.0); HEMOGLOBIN 10.4 g/dl (12.0-15.5); MEAN CORPUSCULAR HEMOGLOBIN 32.2 pg (27.0-33.0); MEAN CORPUSCULAR VOLUME 94.7 fl (80.0-96.0); PLATELET COUNT, AUTOMATED 169 10^3/uL (150-450); RED BLOOD COUNT 3.23 10^6/uL (4.00-5.40)
[2020-04-04 10:32] LABS: WHITE BLOOD COUNT 50.9 10^3/uL (4.0-10.0)
[2020-04-04] MEDS ORDERED: VANCOMYCIN HCL 1,000 MG, VIAL MATE ADAPTER 1 EACH in D5W 250 ML IV ONE (11:00)
[2020-04-04 11:08] LABS: LYMPHOCYTES 5 % (16-44); MONOCYTES 8 % (0-5); NEUTROPHILS 80 % (28-66)
[2020-04-04 11:09] LABS: PLATELET ESTIMATE NORMAL (NORMAL); SMUDGE CELLS 1+; TOXIC GRANULATION 1+
[2020-04-04 11:10] LABS: ANISOCYTOSIS 1+
[2020-04-04] MEDS ORDERED: HumaLOG INSULIN (NovoLOG) PER UNIT SC SCH ×2 (12:00→21:00)
--- NOTE | 2020-04-04 13:01 | HPEPDOC ---
[facility] Medical History & Physical Date of Admission Apr 04, 2020 Date of Service: Apr 04, 2020 History and Physical CHIEF COMPLAINT: Fall at senior care HISTORY OF PRESENT ILLNESS: 79-year-old female brought in after being found in the floor at her senior care. Patient was seen in the emergency department where I was unable to obtain much history from her. But she is able to answer basic yes and no questions but keeps falling asleep. He tells me she's been having some dysuria and doesn't remember coming into the hospital. Denies being currently in any pain or discomfort. In the ED patient was febrile and hypotensive started on peripheral norepinephrine for hypertension. MAP is 82 when I saw her in the room. EKG is normal sinus. Patient was given 1 dose of Zosyn in the ED and fluids for septic shock. Patient to be admitted to the ICU. From chart review and medication reconciliation patient seems to have a past medical history of diabetes, hypertension, dementia, gout, hyperlipidemia, depression, CKD. PAST MEDICAL HISTORY: From chart review and medication reconciliation patient seems to have a past medical history of diabetes, hypertension, dementia, gout, hyperlipidemia, depression, CKD. PAST SURGICAL HISTORY: Unable to obtain from patient SOCIAL HISTORY: Lives in a senior care ALLERGIES: Please see below. REVIEW OF SYSTEMS: Unable to obtain complete review of systems due to patient's mental status/dementia. Patient was able to talk me she's having dysuria on urination. She tells me she is not in pain denies any chest pain denies shortness of breath. Denies a cough or sputum production. Denies feeling febrile. Tells me she hasn't passed gas over the past day. Cannot tell me if she's had any bowel movements. But denies any abdominal pain or suprapubic tenderness. HOME MEDICATIONS: Please see below. PHYSICAL EXAMINATION: Constitutional: Sleepy but is in no apparent distress ENT: Sclera are clear. Mucosa is moist. Respiratory: Lungs CTA bilaterally. No respiratory distress. No use of accessory muscles. Cardiovascular: RRR S1 and S2 are normal, no murmur Gastrointestinal: Abdomen is soft, non distended, non tender, BS present. Musculoskeletal: No edema Neurologic: Patient not cooperating with physical exam and keeps falling asleep but there is no gross neurological deficits that are apparent. Mental Status: Difficult to assess her mental status she knows her name but keeps falling asleep. Skin: Warm, dry LABORATORY DATA: See below. IMAGING: CT head normal Cervical spine CT okay Chest CT okay. Abdominal/pelvic CT MICROBIOLOGY: Please see below. A/P 79-year-old female brought in after being found in the floor at her senior care. pmhX of diabetes, hypertension, dementia, gout, hyperlipidemia, depression, CKD. Admitted for septic shock secondary to UTI. Patient was admitted to the ICU for further management. Patient was initially hypotensive requiring pressor support. Sepsis protocol. Started on vancomycin and cefepime. # Septic shock: likely due to UTI. Admit to ICU. IVFs. Start Vanc and cefepime. Levofed. Lactate 8.1, trend. RVP/COVID negative. CXR reviewed. # UTI: UCx. BCx. IV vanc, cefepime. ID consulted. # TYLER on CKD: Creatinine doubled from last admission earlier this month. Nephro consulted. IVFs. Avoid nephrotoxins. Could be dehydration versus postobstructive given urinary retention will obtain FeNa. # Suspected SBO: Seen on CT abdomen. NPO with NG LIS. D5NS. Good bowel sounds but denies passing gas. # Hypokalemia: replace. monitor. # Suspected fall: Suspected fall at senior care. Chest CT, cervical spine CT, head CT and CXR reviewed. Patient not complaining of any pain. # DM: Hold home Januvia. ISS goal 140-180. Frequent Accu-Cheks. Hypoglycemic precautions. # HTN: Hypotensive currently. Pressure support. # Urinary retention: PRV 700 mL. Munoz. # Dementia: Fall precautions. Risk of deconditioning and sun downing. Window bed and quiet time. PT/OT when ready. Halidol IM low dose if needed for severe agitation. Needs regular BMs # History gout: Continue allopurinol when not NPO. # HLD: Continue home Lipitor when eating. # Depression: Continue Zoloft when eating. # DVT Prophylaxis: SCDs, Heparin q8h FASTHUG A Yousef Hospitalist Vital Signs Vital Signs Date Time Temp Pulse Resp B/P (MAP) Pulse Ox O2 Delivery O2 Flow Rate FiO2 04/04/20 08:04 113/58 (76) 04/04/20 07:46 85 04/04/20 07:20 100.1 20 94 Room Air Laboratory Data Labs 24H Laboratory Tests 2 04/04/20 04:14: Neutrophils (%) (Auto) , Nucleated Red Blood Cells % (auto) 0.2H, Neutrophils 81H, Band Neutrophils 13H, Lymphocytes (Manual) 2L, Monocytes (Manual) 2, Metamyelocytes 2H, Red Blood Cell Morphology NORMAL, Platelet Estimate NORMAL, Prothrombin Time 15.7H, Prothromb Time International Ratio 1.22, Activated Partial Thromboplast Time 34.9, Urine Color YELLOW, Urine Appearance CLOUDYH, Urine pH 5.0, Urine Specific [place] 1.010, Urine Protein NEGATIVE, Urine Glucose (UA) NEGATIVE, Urine Ketones NEGATIVE, Urine Blood 3+H, Urine Nitrite NEGATIVE, Urine Bilirubin NEGATIVE, Urine Urobilinogen 0.2, Urine Leukocyte Esterase 3+H, Urine WBC (Auto) 43H, Urine RBC (Auto) 10H, Urine Hyaline Casts (Auto) 0, Urine Bacteria (Auto) 2+H, Urine Squamous Epithelial Cells 1, Urine Sperm (Auto) , Anion Gap 15, Glomerular Filtration Rate 13.9L, Lactic Acid Level 8.1*H, Calcium Level 7.6L, Total Bilirubin 0.3, Direct Bilirubin 0.1, Aspartate Amino Transf (AST/SGOT) 18, Alanine Aminotransferase (ALT/SGPT) 15, Alkaline Phosphatase 150H, Total Creatine Kinase 52, Creatine Kinase MB < 1.0, Creatine Kinase MB Relative Index 1.92, Troponin I 0.02, Total Protein 4.9L, Albumin 2.3L, Albumin/Globulin Ratio 0.9L, Lipase 117 CBC/BMP Laboratory Tests 04/04/20 04:14 Microbiology Microbiology 04/04/20 Respiratory Virus Panel (PCR) (MARK) - Final, Complete 04/04/20 Blood Culture, Received Pending 04/04/20 Urine Culture, Received Pending 04/04/20 Blood Culture, Received Pending Home Medications Scheduled Allopurinol (Allopurinol) 100 Mg Tab, 100 MG PO DAILY Amlodipine Besylate (Norvasc) 5 Mg Tablet, 5 MG PO DAILY Atorvastatin Calcium (Atorvastatin Calcium) 20 Mg Tab, 20 MG PO QPM Azelastine HCl (Azelastine HCl) 0.05% 6ML Drops, 1 DROP OU BID Calcium Carbonate/Vitamin D3 (Calcium 600-Vit D3 200 Tablet) 1 Tab Tab, 1 TAB PO BID Cyanocobalamin (Vitamin B-12) (Vitamin B-12) 500 Mcg Tab, 500 MCG PO DAILY Gabapentin (Gabapentin) 400 Mg Capsule, 400 MG PO BID Latanoprost (Xalatan) 0.005% 2.5ML Drops, 1 DROP OU QPM Multivitamin (Multivitamins) 1 Cap Cap, 1 CAP PO DAILY Pantoprazole Sodium (Protonix) 40 Mg Tab, 40 MG PO DAILY Sertraline HCl (Sertraline HCl) 50 Mg Tablet, 50 MG PO QPM Sitagliptin Phosphate (Januvia) 25 Mg Tablet, 25 MG PO DAILY Vit A/Vit C/Vit E/Zinc/Copper (Preservision Areds Softgel) 1 Each Capsule, 1 CAP PO QPM Scheduled PRN Acetaminophen (Acetaminophen) 325 Mg Tablet, 650 MG PO Q4H PRN for PAIN Bisacodyl (Bisacodyl) 10 Mg Supp.rect, 10 MG OR DAILY PRN for CONSTIPATION Magnesium Hydroxide (Milk of Magnesia) 400 Mg/5 Ml Oral.susp, 30 ML PO DAILY PRN for CONSTIPATION Sodium Phosphate,Beltrami-Dibasic (Enema) 133 Ml Enema, 1 ILYA OR DAILY PRN for CONSTIPATION Allergies Coded Allergies: Sulfa (Sulfonamide Antibiotics) (Verified Allergy, Unknown, 06/24/19) codeine (Verified Allergy, Unknown, 06/24/19) erythromycin base (Verified Allergy, Unknown, 06/24/19) meperidine (Verified Allergy, Unknown, 06/24/19) pentazocine (Verified Allergy, Unknown, 06/24/19) A-FIB/CHADSVASC A-FIB History Current/History of A-Fib/PAF?: No YODIT SOTELO MD Apr 04, 2020 08:56
[2020-04-04] MEDS: HumaLOG INSULIN (NovoLOG) PER UNIT SC SCH ×3 (13:03→23:21)
[2020-04-04] MEDS: CEFEPIME HCL 1 GM in D5W MINI-BAG PLUS 50 ML IV SCH ×2 (15:05→23:11)
--- NOTE | 2020-04-04 18:01 | ECGEPIP ---
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
[2020-04-04 18:48] LABS: CREATININE,RANDOM URINE 30.5 MG/DL
[2020-04-04] MEDS: LATANOPROST 0.005% OPHTH SOLN 2.5 ML OU SCH (21:03)
[2020-04-04] MEDS: SODIUM BICARBONATE 100 MEQ in D5W 1,000 ML IV SCH (21:04)
[2020-04-05] VITALS (22 sets, daily range): BP systolic 85–147; BP diastolic 41–69
[2020-04-05 04:44] LABS: HEMATOCRIT 24.9 % (36.0-47.0); HEMOGLOBIN 8.6 g/dl (12.0-15.5); MEAN CORPUSCULAR HEMOGLOBIN 32.1 pg (27.0-33.0); MEAN CORPUSCULAR HGB CONC 34.5 g/dl (32.0-36.5); MEAN CORPUSCULAR VOLUME 92.9 fl (80.0-96.0); PLATELET COUNT, AUTOMATED 135 10^3/uL (150-450); RED BLOOD COUNT 2.68 10^6/uL (4.00-5.40)
[2020-04-05 04:45] LABS: WHITE BLOOD COUNT 32.9 10^3/uL (4.0-10.0)
[2020-04-05 04:53] LABS: INR 1.26; PROTHROMBIN TIME 16.1 SECONDS (12.5-14.3)
[2020-04-05 05:11] LABS: BASOPHILS 1 % (0-1); LYMPHOCYTES 4 % (16-44); MONOCYTES 1 % (0-5); NEUTROPHILS 89 % (28-66)
[2020-04-05 05:12] LABS: DOHLE BODIES 1+; PLATELET ESTIMATE DECREASED (NORMAL)
[2020-04-05 05:13] LABS: TOXIC GRANULATION 1+
[2020-04-05 05:14] LABS: BILIRUBIN,TOTAL 0.3 MG/DL (0.2-1.0); CREATININE FOR GFR 2.53 MG/DL (0.55-1.30); GLOMERULAR FILTRATION RATE 19.5 (>32); POTASSIUM SERUM 3.3 MEQ/L (3.5-5.1); TOTAL PROTEIN 4.8 GM/DL (6.4-8.2); VANCOMYCIN RANDOM 12.3 UG/ML
[2020-04-05] MEDS ORDERED: VANCOMYCIN HCL 750 MG, VIAL MATE ADAPTER 1 EACH in D5W 250 ML IV ONE (06:00)
[2020-04-05] MEDS: HumaLOG INSULIN (NovoLOG) PER UNIT SC SCH ×4 (06:00→23:41)
[2020-04-05] MEDS: HEPARIN SOD (PORCINE) 5000UNITS/ML 1ML VIAL/SYRINGE SC SCH ×3 (06:02→21:47)
[2020-04-05] MEDS: SODIUM BICARBONATE 100 MEQ in D5W 1,000 ML IV SCH (06:02)
[2020-04-05] MEDS ORDERED: PIPERACILLIN/TAZOBACTAM SOD 3.375 GM in D5W MINI-BAG PLUS 50 ML IV SCH (07:15)
[2020-04-05] MEDS ORDERED: POTASSIUM CHLORIDE 10% LIQ 20 MEQ/15 ML UDC PO ONE (07:45)
[2020-04-05] MEDS: PIPERACILLIN/TAZOBACTAM SOD 2.25 GM in D5W MINI-BAG PLUS 50 ML IV SCH ×3 (08:12→23:42)
[2020-04-05] MEDS: PANTOPRAZOLE 40MG VIAL (C9113 PER 1) IV SCH (08:12)
[2020-04-05] MEDS: KCL 20MEQ IN 100ML SWI (KRUN) 20 MEQ in IV 1 EA IV SCH ×4 (08:36→10:51)
[2020-04-05] MEDS: ONDANSETRON 4MG/2ML VIAL IV PRN ×2 (11:54→19:52)
[2020-04-05] MEDS ORDERED: MORPHINE 2 MG/ML 1ML VIAL (J2270) IV ONE (12:00)
--- NOTE | 2020-04-05 13:32 | IPNPDOC ---
Text Note Date of Service The patient was seen on 04/05/20. NOTE S Patient was seen and examined this morning at bedside. Patient has been off of Levophed since yesterday at 3 PM. Nurse reports no overnight events. Patient is complaining of a headache and left flank pain today. O Constitutional: Awake today in no apparent distress. Demented but answering many questions appropriately. ENT: Sclera are clear. Mucosa is moist. Respiratory: Lungs CTA bilaterally. No respiratory distress. No use of accessory muscles. Cardiovascular: RRR S1 and S2 are normal, no murmur Gastrointestinal: Abdomen is soft, non distended, left CVA tenderness, BS present. Musculoskeletal: No edema Neurologic: no gross neurological deficits that are apparent. Mental Status: Awake oriented 2 Skin: Warm, dry A/P 79-year-old female brought in after being found in the floor at her [facility]. pmhX of diabetes, hypertension, dementia, gout, hyperlipidemia, depression, CKD. Admitted for septic shock secondary to pyelonephritis. Patient was admitted to the ICU for further management. Patient was initially hypotensive requiring pressor support. Sepsis protocol. Started on vancomycin and cefepime which was later switched to Zosyn. # Septic shock: 2/2 pyelonephritis. Off of pressors. IVFs. Zosyn. Lactate 8.1 on admission now 1.6. RVP/COVID negative. CXR reviewed. # Pyelonephritis: fever/ L CVA tenderness. UCx. BCx prelim negative. IV Zosyn. ID consulted. Complaining of left flank pain this morning CT yesterday did not show stones only mild stranding. We will obtain CT stone protocol and consult urology if positive. Otherwise awaiting urine cultures and on empiric treatment with Zosyn. # TYLER on CKD: Improved. Nephro consulted. IVFs. Avoid nephrotoxins. # Suspected SBO: Seen on CT abdomen. NPO. D5LR and bicarb. Good bowel sounds but denies passing gas. # Hypokalemia: replace. monitor. # Suspected fall: Suspected fall at [facility]. Chest CT, cervical spine CT, head CT and CXR reviewed. Patient not complaining of any pain. # DM: Hold home Januvia. ISS goal 140-180. Frequent Accu-Cheks. Hypoglycemic precautions. # HTN: Hypotensive currently. Pressure support. # Urinary retention: PRV 700 mL. Munoz. # Dementia: Fall precautions. Risk of deconditioning and sun downing. Window bed and quiet time. PT/OT when ready. Halidol IM low dose if needed for severe agitation. Needs regular BMs # History gout: Continue allopurinol when not NPO. # HLD: Continue home Lipitor when eating. # Depression: Continue Zoloft when eating. # DVT Prophylaxis: SCDs, Heparin q8h FASTHUG A Meena Hospitalist VSYanique, I+O VSYanique I+O Laboratory Tests 04/05/20 04:27 Vital Signs Date Time Temp Pulse Resp B/P (MAP) Pulse Ox O2 Delivery O2 Flow Rate FiO2 04/05/20 11:00 81 124/58 (80) 95 04/05/20 08:00 98.6 16 Room Air I&O- Last 24 Hours up to 6 AM 04/05/20 06:00 Intake Total 3964 ml Output Total 1750 ml Balance 2214 ml YODIT SOTELO MD Apr 05, 2020 11:25
[2020-04-05] MEDS: ACETAMINOPHEN TAB 650MG DOSE (2X325MG) PO PRN ×2 (13:35→23:59)
[2020-04-05] MEDS: KCL 20MEQ IN D5/0.45NS 1000ML 1,000 ML IV SCH ×2 (13:36→21:47)
--- NOTE | 2020-04-05 14:10 | REPVR ---
PROCEDURE INFORMATION: Exam: CT Abdomen And Pelvis Without Contrast Exam date and time: 04/05/2020 1:16 PM Age: 79 years old Clinical indication: Abdominal pain; Flank; Left; Additional info: CT stone protocol. ? Obstruction especially left side TECHNIQUE: Imaging protocol: Computed tomography of the abdomen and pelvis without contrast. Radiation optimization: All CT scans at this facility use at least one of these dose optimization techniques: automated exposure control; mA and/or kV adjustment per patient size (includes targeted exams where dose is matched to clinical indication); or iterative reconstruction. COMPARISON: CT ABD PELVIS W/O CONTRAST 04/04/2020 5:56 AM FINDINGS: Tubes, catheters and devices: Right femoral venous catheter terminates in the external iliac vein. Lungs: Mild dependent atelectasis. Pleural space: Trace bilateral pleural effusions. Liver: No mass. Gallbladder and bile ducts: Cholecystectomy changes. No biliary ductal dilation. Pancreas: No ductal dilation. Spleen: No splenomegaly. Adrenals: No mass. Kidneys and ureters: There is progression of the previously noted 7 mm left renal calculus into the proximal ureter, with resultant mild upstream hydronephrosis. Mild left perinephric inflammation. Exophytic simple bilateral renal cysts again noted. Stomach and bowel: Bowel anastomotic suture present at the duodenum and sigmoid colon. No bowel obstruction. Fluid is present throughout the small bowel and colon. Extensive colonic diverticulosis without evidence of diverticulitis. Appendix: No evidence of appendicitis. Intraperitoneal space: No free air. No significant fluid collection. Vasculature: Aortic annular and coronary artery calcifications are present. Severe aortic and branch vessel atherosclerosis. Lymph nodes: No enlarged lymph nodes. Urinary bladder: Urinary bladder is partially decompressed by a Munoz catheter. Reproductive: Hysterectomy. No adnexal mass. Bones/joints: There is mild sclerosis of both femoral heads without collapse, which can be seen in the setting of avascular necrosis. Soft tissues: Anterior abdominal wall herniorrhaphy. IMPRESSION: There has been progression of the previously noted 7 mm left renal calculus into the proximal ureter with resultant mild upstream hydronephrosis and perinephric inflammation. Electronically signed by: Raciel Mantilla On 04/05/2020 14:10:47 PM
[2020-04-05] MEDS ORDERED: MORPHINE 2 MG/ML 1ML VIAL (J2270) IV PRN (17:15)
[2020-04-05 17:41] LABS: HEMATOCRIT 25.6 % (36.0-47.0); HEMOGLOBIN 8.8 g/dl (12.0-15.5); MEAN CORPUSCULAR HEMOGLOBIN 31.9 pg (27.0-33.0); MEAN CORPUSCULAR HGB CONC 34.4 g/dl (32.0-36.5); MEAN CORPUSCULAR VOLUME 92.8 fl (80.0-96.0); PLATELET COUNT, AUTOMATED 151 10^3/uL (150-450); RED BLOOD COUNT 2.76 10^6/uL (4.00-5.40)
[2020-04-05 17:44] LABS: WHITE BLOOD COUNT 31.9 10^3/uL (4.0-10.0)
[2020-04-05] MEDS: MORPHINE 2 MG/ML 1ML VIAL (J2270) IV PRN (19:52)
[2020-04-05] MEDS: LATANOPROST 0.005% OPHTH SOLN 2.5 ML OU SCH (20:05)
[2020-04-06] VITALS (17 sets, daily range): BP systolic 100–177; BP diastolic 51–87
[2020-04-06 03:37] LABS: HEMOGLOBIN 8.8 g/dl (12.0-15.5); MEAN CORPUSCULAR HEMOGLOBIN 31.8 pg (27.0-33.0); MEAN CORPUSCULAR HGB CONC 33.8 g/dl (32.0-36.5); MEAN CORPUSCULAR VOLUME 93.9 fl (80.0-96.0); PLATELET COUNT, AUTOMATED 151 10^3/uL (150-450); RED BLOOD COUNT 2.77 10^6/uL (4.00-5.40); WHITE BLOOD COUNT 26.6 10^3/uL (4.0-10.0)
[2020-04-06 04:11] LABS: BILIRUBIN,TOTAL 0.3 MG/DL (0.2-1.0); CREATININE FOR GFR 2.53 MG/DL (0.55-1.30); GLOMERULAR FILTRATION RATE 19.5 (>32); POTASSIUM SERUM 4.6 MEQ/L (3.5-5.1); TOTAL PROTEIN 4.7 GM/DL (6.4-8.2)
[2020-04-06 04:40] LABS: EOSINOPHILS 2 % (0-3); LYMPHOCYTES 8 % (16-44); MONOCYTES 2 % (0-5); NEUTROPHILS 87 % (28-66)
[2020-04-06 04:41] LABS: PLATELET ESTIMATE NORMAL (NORMAL)
[2020-04-06] MEDS: HumaLOG INSULIN (NovoLOG) PER UNIT SC SCH ×4 (05:24→20:45)
[2020-04-06] MEDS: KCL 20MEQ IN D5/0.45NS 1000ML 1,000 ML IV SCH ×3 (05:25→22:34)
[2020-04-06] MEDS: HEPARIN SOD (PORCINE) 5000UNITS/ML 1ML VIAL/SYRINGE SC SCH ×3 (05:25→21:00)
[2020-04-06] MEDS: MORPHINE 2 MG/ML 1ML VIAL (J2270) IV PRN ×3 (06:18→19:36)
[2020-04-06] MEDS: PANTOPRAZOLE 40MG VIAL (C9113 PER 1) IV SCH (08:11)
[2020-04-06] MEDS: ACETAMINOPHEN TAB 650MG DOSE (2X325MG) PO PRN (08:13)
[2020-04-06] MEDS: PIPERACILLIN/TAZOBACTAM SOD 2.25 GM in D5W MINI-BAG PLUS 50 ML IV SCH ×2 (08:18→14:12)
[2020-04-06] MEDS ORDERED: LIDOCAINE 2% 100MG/5ML SDV (FOR ANES.) As Ordered ONE (08:45)
[2020-04-06] MEDS ORDERED: propofoL 200 MG/20 ML VIAL As Ordered ONE (08:45)
[2020-04-06] MEDS ORDERED: fentaNYL 100 MCG/2 ML INJECTION (J3010) As Ordered ONE (08:45)
[2020-04-06] MEDS ORDERED: CONRAY-60 60% 50ML VIAL (Q9961) As Ordered ONE (08:51)
[2020-04-06] MEDS ORDERED: LIDOCAINE 2% 5ML JELLY UROJET As Ordered ONE (08:51)
--- NOTE | 2020-04-06 09:26 | SMCUROLCON ---
Urology Consultation General Date of Consultation 04/06/20 Reason For Consultation This patient is seen for Acute Kidney Injury Dehydration Severe Sepsis. History of Present Illness This is an 79 y/o F w/ a PMH significant for dementia, DM2, HTN, HL, and CKD, admitted 2 days ago for sepsis due to a UTI. Over the past day she has had increasing L flank pain, which prompted a CT A/P yesterday. This was notable for mild L hydronephrosis 2/2 an obstructing 7mm proximal L ureteral stone. Her UCx is growing E coli. She has been on zosyn since admission. Her WBC was 50 and has gradually come down to 26.6 this morning. Her Cr has come down from 3.4 to 2.5. Her baseline appears to be 2.6. Past Medical History Medical History see HPI Surgical Hstory cholecystectomy appendectomy MILAD Medications Current Medications Current Medications Medications (Trade) Dose Ordered Sig/Sarah Route PRN Reason Start Time Stop Time Status Last Admin Dose Admin Acetaminophen (Tylenol Tab) 650 mg Q6HP PRN PO PAIN / FEVER 04/05/20 11:30 04/06/20 08:13 Cefepime HCl 1 gm/ Dextrose 50 ml @ 100 mls/hr Q12H IV 04/04/20 12:00 04/05/20 07:12 DC 04/04/20 23:11 Cefepime HCl 2 gm/ Dextrose 50 ml @ 100 mls/hr Q12H IV 04/04/20 08:30 04/04/20 09:35 DC Chlorhexidine Gluconate (Peridex Oral Rinse) SWAB/BRUSH ORAL CAVITY BID MT 04/04/20 09:00 04/04/20 12:30 DC Dextrose (Dextrose 50%) 25 ml ASDIRECTED PRN IV SEE LABEL COMMENTS 04/04/20 08:30 Dextrose/Sodium Chloride 1,000 ml @ 120 mls/hr Q8H20M IV 04/04/20 08:30 04/04/20 18:33 DC 04/04/20 10:56 Glucagon (Glucagon) 1 mg ASDIRECTED PRN SC SEE LABEL COMMENTS 04/04/20 08:30 Glucose (Glucose) 16 GM ASDIRECTED PRN PO SEE LABEL COMMENTS 04/04/20 08:30 Heparin Sodium (Porcine) (Heparin) 5,000 units Q8H SC 9/25/20 06:00 04/06/20 05:25 Home Med (Med Rec Complete!) ASDIRECTED XX 04/04/20 07:45 04/04/20 07:35 DC Insulin Human Lispro (HumaLOG INSULIN) SEE PROTOCOL TABLE AC [place] 04/04/20 12:00 04/04/20 12:26 DC Insulin Human Lispro (HumaLOG INSULIN) SEE PROTOCOL TABLE Q6H [place] 04/04/20 12:00 04/06/20 05:24 Insulin Human Lispro (HumaLOG INSULIN) SEE PROTOCOL TABLE QHS [place] 04/04/20 21:00 04/04/20 12:26 DC Latanoprost (Xalatan 0.005% Op Soln) 1 drop QPM OU 04/04/20 21:00 04/05/20 20:05 Magnesium Hydroxide (Milk Of Magnesia) 30 ml DAILY PRN PO CONSTIPATION 04/04/20 09:00 Morphine Sulfate (Morphine Sulfate Inj) 1 mg Q6H PRN IV MODERATE PAIN (PS 5-7) 04/05/20 17:15 04/05/20 18:33 DC Morphine Sulfate (Morphine Sulfate Inj) 2 mg Q4H PRN IV MODERATE PAIN (PS 5-7) 04/05/20 18:45 04/06/20 06:18 Non-Formulary Medication ( See Comment Field Below ) [facility] DOSING ASDIRECTED XX 04/04/20 09:45 04/05/20 07:27 DC Norepinephrine Bitartrate 8 mg/ Dextrose 500 ml @ 37.5 mls/hr [id number] IV 04/04/20 06:00 04/04/20 17:59 DC 04/04/20 06:24 Norepinephrine Bitartrate 8 mg/ Dextrose 500 ml @ 37.5 mls/hr [id number] IV 04/04/20 18:00 Hold Ondansetron HCl (ZOFRAN INJection) 2 mg Q4HP PRN IV NAUSEA OR VOMITING 04/05/20 11:45 04/05/20 19:52 Pantoprazole Sodium (Protonix) 40 mg DAILY IV 04/04/20 09:00 04/06/20 08:11 Piperacillin Sod/ Tazobactam Sod 2.25 gm/Dextrose 50 ml @ 100 mls/hr Q8H IV 04/05/20 08:00 04/06/20 08:18 Piperacillin Sod/ Tazobactam Sod 3.375 gm/Dextrose 50 ml @ 50 mls/hr Q6H IV 04/05/20 07:15 04/05/20 07:45 DC Potassium Chloride 20 meq/ IV Miscellaneous Supplies 100 ml @ 100 mls/hr Q1H IV 04/05/20 08:00 04/05/20 09:59 DC 04/05/20 10:51 Potassium Chloride/Dextrose/ Sod Cl 1,000 ml @ 125 mls/hr Q8H IV 04/05/20 13:00 04/06/20 12:59 04/06/20 05:25 Sodium Bicarbonate 100 meq/Dextrose/Water 1,100 ml @ 125 mls/hr Q8H48M IV 04/04/20 20:00 04/05/20 12:35 DC 04/05/20 06:02 Allergies Allergies: Coded Allergies: Sulfa (Sulfonamide Antibiotics) (Verified Allergy, Unknown, 06/24/19) codeine (Verified Allergy, Unknown, 06/24/19) erythromycin base (Verified Allergy, Unknown, 06/24/19) meperidine (Verified Allergy, Unknown, 06/24/19) pentazocine (Verified Allergy, Unknown, 06/24/19) Review of Systems General: Reports: ROS Unobtainable Physical Examination General Exam: Cooperative, No Acute Distress Chest Exam: Normal air movement Heart Exam: Regular Rhythm Abdomen Exam: Soft, Tenderness (mild) Female Exam catheter draining clear yellow urine Skin Exam: Nl turgor and temperature Vital Signs/I&O Vital Signs Date Time Temp Pulse Resp B/P (MAP) Pulse Ox O2 Delivery O2 Flow Rate FiO2 04/06/20 06:28 21 Nasal Cannula 0.5 04/06/20 04:00 97.7 70 108/58 (75) 93 I&O- Last 24 Hours up to 6 AM 04/06/20 06:00 Intake Total 2492 ml Output Total 1430 ml Balance 1062 ml Laboratory Data 24H Labs Laboratory Tests 2 04/05/20 12:03: Bedside Glucose (Misc Panel) 133H 04/05/20 17:25: Nucleated Red Blood Cells % (auto) 0.0 04/05/20 17:27: Bedside Glucose (Misc Panel) 115H 04/05/20 23:32: Bedside Glucose (Misc Panel) 125H 04/06/20 03:08: Neutrophils (%) (Auto) , Nucleated Red Blood Cells % (auto) 0.0, Neutrophils 87H, Band Neutrophils 1, Lymphocytes (Manual) 8L, Monocytes (Manual) 2, Eosinophils (Manual) 2, Platelet Estimate NORMAL, Anion Gap 5L, Glomerular F iltration Rate 19.5L, Calcium Level 7.0L, Total Bilirubin 0.3, Aspartate Amino Transf (AST/SGOT) 15, Alanine Aminotransferase (ALT/SGPT) 10L, Alkaline Phosphatase 87, Total Protein 4.7L, Albumin 2.0L, Albumin/Globulin Ratio 0.7L 04/06/20 05:14: Bedside Glucose (Misc Panel) 119H CBC/BMP Laboratory Tests 04/05/20 17:25 04/06/20 03:08 Microbiology Microbiology 04/05/20 Stool Occult Blood (MARK) - Final, Complete 04/04/20 Respiratory Virus Panel (PCR) (MARK) - Final, Complete 04/04/20 Blood Culture - Preliminary, Resulted No Growth after 48 hours. All Specime... 04/04/20 Urine Culture - Final, Complete Escherichia Coli 04/04/20 Blood Culture - Preliminary, Resulted No Growth after 48 hours. All Specime... Assessment This is an 79 y/o F admitted w/ sepsis due to an E coli UTI and TYLER, now found to have an obstructing 7mm proximal L ureteral stone. I recommended that we take her to the OR this morning for cystoscopy, L ureteral stent placement. After a discussion of the risks and benefits of the procedure, informed consent was obtained over the phone by her son and healthcare proxy, Kye Reddy. Plan - informed consent obtained for cystoscopy, L ureteral stent placement - zosyn given at 8am - NPO - to OR now ELIZABETH PFEIFFER MD Apr 06, 2020 09:25
[2020-04-06] MEDS ORDERED: ePHEDrine SULFATE 25 MG/5 ML(5MG/ML) SYRINGE As Ordered ONE (09:43)
[2020-04-06] MEDS ORDERED: fentaNYL 100 MCG/2 ML INJECTION (J3010) IV PRN (11:30)
[2020-04-06] MEDS ORDERED: ONDANSETRON 4MG/2ML VIAL IV PRN (11:30)
[2020-04-06] MEDS ORDERED: METOCLOPRAMIDE INJ 10MG/2ML VIAL (J2765 PER 1) IV PRN (11:30)
[2020-04-06] MEDS: ONDANSETRON 4MG/2ML VIAL IV PRN ×2 (15:00→19:35)
--- NOTE | 2020-04-06 16:38 | IPNPDOC ---
Text Note Date of Service The patient was seen on 04/06/20. NOTE S Patient was seen and examined this morning at bedside. Patient has been off of Levophed since yesterday at 3 PM. Nurse reports no overnight events. Patient is complaining of a headache and left flank pain today. O Constitutional: Awake today in no apparent distress. Demented but answering many questions appropriately. ENT: Sclera are clear. Mucosa is moist. Respiratory: Lungs CTA bilaterally. No respiratory distress. No use of accessory muscles. Cardiovascular: RRR S1 and S2 are normal, no murmur Gastrointestinal: Abdomen is soft, non distended, left CVA tenderness, BS present. Musculoskeletal: No edema Neurologic: no gross neurological deficits that are apparent. Mental Status: Awake oriented 2 Skin: Warm, dry A/P 79-year-old female brought in after being found in the floor at her intermediate. pmhX of diabetes, hypertension, dementia, gout, hyperlipidemia, depression, CKD. Admitted for septic shock secondary to pyelonephritis. Patient was admitted to the ICU for further management. Patient was initially hypotensive requiring pressor support. Sepsis protocol. Started on vancomycin and cefepime which was later switched to Zosyn. # Septic shock: 2/2 pyelonephritis. Off of pressors since 04/04. IVFs. Zosyn switch to targeted therapy for E coli with Unasyn. Lactate 8.1 on admission now 1.6. RVP/COVID negative. CXR reviewed. Downgrade to PCU 04/06. Tele. # Pyelonephritis: fever/ L CVA tenderness. UCx. BCx prelim negative. IV Unasyn (Abx started 04/04). ID consulted. Urology consulted for left renal stone and underwent cystoscopy w left ureteral stent placement with Dr Pitt 04/06. # TYLER on CKD: Improved. Nephro consulted. IVFs. Avoid nephrotoxins. # Suspected SBO: resolved now passing stool. diabetic diet. Good bowel sounds passing gas. # Hypokalemia: replace. monitor. # Suspected fall: Suspected fall at intermediate. Chest CT, cervical spine CT, head CT and CXR reviewed. Patient not complaining of any pain. # DM: Hold home Januvia. ISS goal 140-180. Frequent Accu-Cheks. Hypoglycemic precautions. # HTN: good BP off of pressors since 04/04 # Urinary retention: PRV 700 mL. Munoz. Urology on consult. # Dementia: Fall precautions. Risk of deconditioning and sun downing. Window bed and quiet time. PT/OT eval. Halidol IM low dose if needed for severe agitation. Needs regular BMs # History gout: Continue allopurinol when not NPO. # HLD: Continue home Lipitor # Depression: Continue Zoloft # DVT Prophylaxis: SCDs, Heparin q8h SARAH Sotelo Hospitalist VSYanique, I+O VSYanique, I+O Laboratory Tests 04/05/20 17:25 04/06/20 03:08 Vital Signs Date Time Temp Pulse Resp B/P (MAP) Pulse Ox O2 Delivery O2 Flow Rate FiO2 04/06/20 15:42 98.1 79 20 141/73 98 Nasal Cannula 2.0 I&O- Last 24 Hours up to 6 AM 04/06/20 05:59 Intake Total 2429 ml Output Total 1495 ml Balance 934 ml YODIT SOTELO MD Apr 06, 2020 16:38
[2020-04-06] MEDS ORDERED: BISACODYL 10 MG SUPP PR PRN (16:45)
[2020-04-06] MEDS: AMPICILLIN SOD/SULBACTAM SOD 1.5 GM in D5W MINI-BAG PLUS 50 ML IV SCH (17:37)
[2020-04-06] MEDS: SERTRALINE HCL 50 MG TAB PO SCH (20:53)
[2020-04-06] MEDS: GABAPENTIN 400 MG CAP PO SCH (20:53)
[2020-04-06] MEDS: ATORVASTATIN 20 MG TAB PO SCH (20:53)
[2020-04-06] MEDS: LATANOPROST 0.005% OPHTH SOLN 2.5 ML OU SCH (20:53)
[2020-04-07] VITALS: BP 140/68
[2020-04-07 04:00] VITALS: BP 130/62
[2020-04-07] MEDS: HEPARIN SOD (PORCINE) 5000UNITS/ML 1ML VIAL/SYRINGE SC SCH ×3 (05:09→21:42)
[2020-04-07] MEDS: AMPICILLIN SOD/SULBACTAM SOD 1.5 GM in D5W MINI-BAG PLUS 50 ML IV SCH ×2 (05:09→17:14)
[2020-04-07 06:07] LABS: BASO % 0.1 % (0.0-1.0); EOS # 0.3 10^3/uL (0.0-0.5); EOS % 1.9 % (0.0-3.0); HEMATOCRIT 25.8 % (36.0-47.0); HEMOGLOBIN 8.8 g/dl (12.0-15.5); LYMPH # 1.1 10^3/uL (1.5-5.0); LYMPH % 8.4 % (24.0-44.0); MEAN CORPUSCULAR HEMOGLOBIN 32.1 pg (27.0-33.0); MEAN CORPUSCULAR HGB CONC 34.1 g/dl (32.0-36.5); MEAN CORPUSCULAR VOLUME 94.2 fl (80.0-96.0); MONO # 0.6 10^3/uL (0.0-0.8); MONO % 4.5 % (0.0-5.0); NEUTROPHILS # 11.5 10^3/uL (1.5-8.5); NEUTROPHILS % 84.5 % (36.0-66.0); PLATELET COUNT, AUTOMATED 158 10^3/uL (150-450); RED BLOOD COUNT 2.74 10^6/uL (4.00-5.40); WHITE BLOOD COUNT 13.6 10^3/uL (4.0-10.0)
[2020-04-07 06:25] LABS: BILIRUBIN,TOTAL 0.5 MG/DL (0.2-1.0); CREATININE FOR GFR 1.89 MG/DL (0.55-1.30); GLOMERULAR FILTRATION RATE 27.2 (>32); POTASSIUM SERUM 4.7 MEQ/L (3.5-5.1); TOTAL PROTEIN 4.7 GM/DL (6.4-8.2)
[2020-04-07] MEDS: HumaLOG INSULIN (NovoLOG) PER UNIT SC SCH ×4 (07:30→20:00)
[2020-04-07 08:00] VITALS: BP 147/81
--- NOTE | 2020-04-07 08:11 | ECHO ---
DATE OF PROCEDURE: 04/04/2020 Age: 79 Gender: Female Height: 66 inches Weight: 156 pounds Body surface area: 1.81 m2 PATIENT LOCATION: Inpatient, Room 1201. REFERRING PHYSICIAN: Lawrence Robledo MD. INDICATION: Sepsis. MEASUREMENTS: 2D Measurements: RV 3.8 cm LV 4.8 cm Septum 1.0 cm Posterior wall 1.0 cm Aortic Root 2.9 cm LA 3.6 cm LVEF 65% Doppler Measurements: AV 1.2 m/s LVOT 0.92 m/s LVOT diameter 1.8 cm MV-E 90, A 101, E/A ratio 0.9 Early mitral deceleration time 236 m/s E prime medial 7.4, A prime medial 7, E prime lateral 7.8 Average E/E prime ratio 11.8/PCWP 16.6 mmHg PV 0.7 m/s Pulmonary artery acceleration time 130 m/s RVSP 33 mmHg IVC 1.7 cm COMMENTS: Normal sinus rhythm without intraventricular conduction disturbance. M-mode and two-dimensional echocardiography was performed with pulsed, continuous wave, color flow, and tissue Doppler studies. Normal left ventricular size, wall thickness, and wall motion. Normal left atrial size with grade 1 left ventricular (LV) diastolic dysfunction (in keeping with her age) and current estimated mean left atrial pressure upper limits of normal to borderline increased. Normal right heart chamber sizes and motion with Doppler evidence of borderline pulmonary hypertension. Normal inferior vena cava (IVC) size and collapse against an elevated central venous pressure. Normal aortic dimensions. Mild aortic valvular sclerosis without functional abnormality. Mild degenerative changes of the mitral valvular apparatus with adequate leaflet excursion and no posterior systolic buckling, but mild mitral insufficiency. Normal appearing tricuspid valve with mild insufficiency. No separate intracardiac mass or pericardial effusion. If endocarditis is seriously suspect, transesophageal echocardiography would be the procedure of choice. [facility]
[2020-04-07] MEDS: GABAPENTIN 400 MG CAP PO SCH ×2 (08:57→20:06)
[2020-04-07] MEDS: PANTOPRAZOLE 40MG TAB (PROTONIX) PO SCH (08:57)
[2020-04-07] MEDS: allopurinoL 100 MG TAB PO SCH (08:57)
[2020-04-07] MEDS ORDERED: FOSFOMYCIN TROMETHAMINE 3 GM POWDER PACKET (MONUROL) PO ONE (09:00)
--- NOTE | 2020-04-07 10:41 | IPNPDOC ---
Text Note Date of Service The patient was seen on 04/07/20. NOTE S Patient was seen and examined this morning at bedside. Patient was downgraded yesterday from ICU to PCU. Nurse reports no overnight events. Yesterday morning left-sided stent placement for renal stone was placed without complications and this morning patient says she longer has left CVA tenderness. O Constitutional: Awake today in no apparent distress. Demented but answering many questions appropriately. ENT: Sclera are clear. Mucosa is moist. Respiratory: Lungs CTA bilaterally. No respiratory distress. No use of accessory muscles. Cardiovascular: RRR S1 and S2 are normal, no murmur Gastrointestinal: Abdomen is soft, non distended, no CVA tenderness, BS present. Musculoskeletal: No edema Neurologic: no gross neurological deficits that are apparent. Mental Status: Awake oriented 2 Needs to be redirected, dementia apparent Skin: Warm, dry A/P 79-year-old female brought in after being found in the floor at her assisted. pmhX of diabetes, hypertension, dementia, gout, hyperlipidemia, depression, CKD. Admitted for septic shock secondary to pyelonephritis. Patient was admitted to the ICU for further management. Patient was initially hypotensive requiring pressor support. Sepsis protocol. Started on vancomycin and cefepime which was later switched to Zosyn. Urine grew Escherichia coli and antibiotics were switched to targeted therapy with IV Unasyn and this will be switched to by mouth Keflex for 10 day course for treatment of pyelonephritis. [facility] consulted for left renal stone and underwent cystoscopy w left ureteral stent placement with Dr Pitt 04/06. Discussed with Dr. Pitt plan for lithotripsy in 2-3 weeks which has office will arrange after she completes her treatment for pyelonephritis. Cleared for discharge back to assisted by PT. # Septic shock: 2/2 pyelonephritis. Resolved. Off of pressors since 04/04. IVFs. Zosyn switch to targeted therapy for E coli with Unasyn. Lactate 8.1 on admission now 1.6. RVP/COVID negative. CXR reviewed. Downgrade to PCU 04/06. Tele. Remove femoral line 04/07. # Pyelonephritis: Intially fever/ L CVA tenderness. UCx. BCx negative 72hrs. IV Unasyn (Abx started 04/04). ID consulted. Will be transitioned to Keflex by mouth for 10 days total for an end date of April 18. Discussed treatment plan with Dr Godwin. # Left renal stone: Urology consulted for left renal stone and underwent cys toscopy w left ureteral stent placement with Dr Pitt 04/06. Lithotripsy in 2- 3 weeks after pyelo is treated and BCx and repeat and negative. Dr Jeter office will arrange for this to be done. # TYLER on CKD: Improved. Nephro consulted. IVFs. Avoid nephrotoxins. # Suspected SBO: resolved. Now passing stool. diabetic diet. Good bowel sounds. # Hypokalemia: replace. monitor. # Suspected fall: Suspected fall at assisted. Chest CT, cervical spine CT, head CT and CXR reviewed. # DM: Hold home Januvia. ISS. Frequent Accu-Cheks. Hypoglycemic precautions. # HTN: good BP off of pressors since 04/04. Resume amlodipine. Monitor and titrate. # Urinary retention: PRV 700 mL. removed fully 04/07. Voiding trials and PRVs. Urology on consult. Would like her to be able to go back to an without Munoz if she is not retaining anymore. # Dementia: Fall precautions. Risk of deconditioning and sun downing. Window bed and quiet time. PT/OT eval ok to go back to [facility]. Halidol IM low dose if needed fo r severe agitation. Needs regular BMs # History gout: Continue allopurinol # HLD: Continue home Lipitor # Depression: Continue Zoloft # DVT Prophylaxis: SCDs, Heparin q8h Dispo: Downgraded from PCU to med/surge today. Voiding trials. Watch overnight and can possibly be discharged back to assisted tomorrow with by mouth Keflex. PT/OT eval ok to go back to [facility] A Yousef Hospitalist VSYanique, I+O VSYanique, I+O Laboratory Tests 04/07/20 05:37 Vital Signs Date Time Temp Pulse Resp B/P (MAP) Pulse Ox O2 Delivery O2 Flow Rate FiO2 04/07/20 08:00 97.8 84 16 147/81 (103) 96 Nasal Cannula 2.0 I&O- Last 24 Hours up to 6 AM 04/07/20 06:00 Intake Total 2650 ml Output Total 2625 ml Balance 25 ml YOUSEF,YODIT A MD Apr 07, 2020 10:41
[2020-04-07] MEDS: amLODIPine 5 MG TAB PO SCH (11:56)
[2020-04-07] MEDS: ACETAMINOPHEN TAB 650MG DOSE (2X325MG) PO PRN ×2 (11:57→19:24)
[2020-04-07 12:00] VITALS: BP 150/70
--- NOTE | 2020-04-07 13:10 | IPNPDOC ---
Subjective Review oF Systems Chief Complaint The patient is a 79-year-old female admitted with a reason for visit of Acute Kidney Injury Dehydration Severe Sepsis. Events since Last Encounter No acute events o/n. Objective Physical Examination General Exam: Alert, No Acute Distress ABDOMEN EXAM: Soft Skin Exam: Nl turgor and temperature Other physical findings catheter in place, draining clear yellow urine Vital Signs/I&O Vital Signs Date Time Temp Pulse Resp B/P (MAP) Pulse Ox O2 Delivery O2 Flow Rate FiO2 04/07/20 12:00 98.2 82 18 150/70 (96) 95 Nasal Cannula 1.0 I&O- Last 24 Hours up to 6 AM 04/07/20 06:00 Intake Total 2650 ml Output Total 2625 ml Balance 25 ml Laboratory Data Labs 24H Laboratory Tests 2 04/06/20 13:09: Bedside Glucose (Misc Panel) 140H 04/06/20 17:31: Bedside Glucose (Misc Panel) 135H 04/06/20 20:44: Bedside Glucose (Misc Panel) 106 04/07/20 05:37: Immature Granulocyte % (Auto) 0.6, Neutrophils (%) (Auto) 84.5H, Lymphocytes (%) (Auto) 8.4L, Monocytes (%) (Auto) 4.5, Eosinophils (%) (Auto) 1.9, Basophils (%) (Auto) 0.1, Neutrophils # (Auto) 11.5H, Lymphocytes # (Auto) 1.1L, Monocytes # (Auto) 0.6, Eosinophils # (Auto) 0.3, Basophils # (Auto) 0.0, Nucleated Red Blood Cells % (auto) 0.0, Anion Gap 6L, Glomerular Filtration Rate 27.2L, Calcium Level 7.0L, Total Bilirubin 0.5#, Aspartate Amino Transf (AST/SGOT) 11, Alanine Aminotransferase (ALT/SGPT) 9L, Alkaline Phosphatase 80, Total Protein 4.7L, Albumin 2.0L, Albumin/Globulin Ratio 0.7L 04/07/20 11:48: Bedside Glucose (Misc Panel) 98 04/07/20 11:58: CBC/BMP Laboratory Tests 04/07/20 05:37 FSBS Laboratory Tests Test 04/06/20 13:09 04/06/20 17:31 04/06/20 20:44 04/07/20 11:48 Range/Units Bedside Glucose (Misc Panel) 140 135 106 98 83-110 MG/DL Microbiology Microbiology 04/05/20 Stool Occult Blood (MARK) - Final, Complete 04/04/20 Respiratory Virus Panel (PCR) (MARK) - Final, Complete 04/04/20 Blood Culture - Preliminary, Resulted No Growth after 72 hours. All specime... 04/04/20 Urine Culture - Final, Complete Escherichia Coli 04/04/20 Blood Culture - Preliminary, Resulted No Growth after 72 hours. All specime... Assessment/Plan Date Seen The patient was seen on 04/07/20. Patient Summary This is an 79 y/o F admitted w/ sepsis due to an E coli UTI and TYLER, now found to have an obstructing 7mm proximal L ureteral stone, POD1 s/p cystoscopy and L ureteral stent placement. WBC coming down, now 13. Cr improving as well. Good UOP. Plan/VTE VTE Prophylaxis Ordered?: Yes VTE Exclusion Mechanical Proph: N/A:VTE Prophy Ordered Plan - ok to d/c Munoz - cont abx for UTI - my office will contact [facility] and the patient's healthcare proxy to set the patient up for a cystoscopy, L ureteroscopy w/ laser lithotripsy, and L ureteral stent placement, which will be done in 3-4 wks ELIZABETH PFEIFFER MD Apr 07, 2020 13:10
[2020-04-07 16:00] VITALS: BP 144/71
[2020-04-07] MEDS ORDERED: SLF 3 ML SYR IV PRN (16:45)
[2020-04-07] MEDS: ONDANSETRON 4MG/2ML VIAL IV PRN (18:22)
[2020-04-07 20:00] VITALS: BP 150/72
[2020-04-07] MEDS: ATORVASTATIN 20 MG TAB PO SCH (20:06)
[2020-04-07] MEDS: SERTRALINE HCL 50 MG TAB PO SCH (20:06)
[2020-04-07] MEDS: LATANOPROST 0.005% OPHTH SOLN 2.5 ML OU SCH (20:06)
[2020-04-07] MEDS: CEPHALEXIN 500 MG CAP PO SCH (21:42)
[2020-04-07] MEDS: SLF 3 ML SYR IV SCH (21:42)
[2020-04-08 04:00] VITALS: BP 148/82
[2020-04-08] MEDS: CEPHALEXIN 500 MG CAP PO SCH ×3 (05:33→20:47)
[2020-04-08] MEDS: HEPARIN SOD (PORCINE) 5000UNITS/ML 1ML VIAL/SYRINGE SC SCH ×3 (05:33→20:48)
[2020-04-08] MEDS: SLF 3 ML SYR IV SCH ×3 (05:33→20:47)
[2020-04-08] MEDS: ONDANSETRON 4MG/2ML VIAL IV PRN ×3 (07:25→22:27)
[2020-04-08] MEDS: HumaLOG INSULIN (NovoLOG) PER UNIT SC SCH ×4 (07:30→20:46)
[2020-04-08 08:00] VITALS: BP 158/86
[2020-04-08] MEDS: allopurinoL 100 MG TAB PO SCH (09:37)
[2020-04-08] MEDS: PANTOPRAZOLE 40MG TAB (PROTONIX) PO SCH (09:37)
[2020-04-08] MEDS: GABAPENTIN 400 MG CAP PO SCH ×2 (09:37→20:47)
[2020-04-08] MEDS: amLODIPine 5 MG TAB PO SCH (09:37)
[2020-04-08 10:19] LABS: BASO % 0.2 % (0.0-1.0); EOS # 0.1 10^3/uL (0.0-0.5); EOS % 1.3 % (0.0-3.0); HEMATOCRIT 31.6 % (36.0-47.0); LYMPH # 0.9 10^3/uL (1.5-5.0); LYMPH % 8.4 % (24.0-44.0); MEAN CORPUSCULAR HEMOGLOBIN 31.7 pg (27.0-33.0); MEAN CORPUSCULAR HGB CONC 34.2 g/dl (32.0-36.5); MEAN CORPUSCULAR VOLUME 92.7 fl (80.0-96.0); MONO # 0.6 10^3/uL (0.0-0.8); MONO % 5.6 % (0.0-5.0); NEUTROPHILS # 8.9 10^3/uL (1.5-8.5); NEUTROPHILS % 83.6 % (36.0-66.0); PLATELET COUNT, AUTOMATED 217 10^3/uL (150-450); RED BLOOD COUNT 3.41 10^6/uL (4.00-5.40); WHITE BLOOD COUNT 10.6 10^3/uL (4.0-10.0)
[2020-04-08 10:29] LABS: HEMOGLOBIN 10.8 g/dl (12.0-15.5)
[2020-04-08 11:32] LABS: ALBUMIN 2.3 GM/DL (3.2-5.2); BILIRUBIN,TOTAL 0.4 MG/DL (0.2-1.0); CALCIUM LEVEL 7.5 MG/DL (8.8-10.2); CREATININE FOR GFR 1.46 MG/DL (0.55-1.30); GLOMERULAR FILTRATION RATE 36.7 (>32); POTASSIUM SERUM 4.3 MEQ/L (3.5-5.1); TOTAL PROTEIN 5.6 GM/DL (6.4-8.2)
[2020-04-08 12:00] VITALS: BP 175/84
--- NOTE | 2020-04-08 12:20 | REPVR ---
PROCEDURE INFORMATION: Exam: XR Abdomen, 1 View Exam date and time: 04/08/2020 11:14 AM Age: 79 years old Clinical indication: Abdominal pain TECHNIQUE: Imaging protocol: XR of the abdomen. Views: Frontal supine view of the abdomen. 1 View. (2 images total) COMPARISON: CT ABD PELVIS W/O CONTRAST 04/05/2020 1:12 PM FINDINGS: Tubes, catheters and devices: Surgical clips and sutures overlie the abdomen. There has been interval placement of a double-J left-sided ureteral stent. No definite calcification to indicate renal or ureteral calculus is evident, with presumed phleboliths over the pelvis. Gastrointestinal tract: The small bowel is not significantly air-distended. Air and stool are present within large bowel. Bones/joints: Degenerative changes again involve the spine and hips. IMPRESSION: Left-sided double-J ureteral stent placed since 04/05/20. Electronically signed by: Shravan Pelaez On 04/08/2020 12:20:05 PM
[2020-04-08] MEDS: MORPHINE 2 MG/ML 1ML VIAL (J2270) IV PRN ×3 (12:22→22:28)
[2020-04-08 16:00] VITALS: BP 149/71
--- NOTE | 2020-04-08 16:28 | CR ---
DATE OF CONSULTATION: REASON FOR CONSULTATION: Asked to consult by hospitalist for evaluation of severe sepsis with urinary tract infection. HISTORY OF PRESENT ILLNESS: Mrs. Reddy is an 79-year-old female, patient of the [facility]. She was transferred to the hospital after she had a fall. According to her son, she had a fall earlier that week as well. She had some hypotension, a fever of 102. She did complain of some dysuria, although right now she does not recall that. She states that she has discomfort in the bladder area but is asking me whether she has a catheter. She had no nausea, vomiting, or diarrhea. No abdominal pain. No cough or shortness of breath. The patient in the emergency room was febrile to a temperature of 102. Was hypotensive, started on Levophed. Her blood pressure has improved, and the Levophed has been tapered down. She was given one dose of intravenous (IV) Zosyn for septic shock, and her white count worsened from 18,000 to 50,000, and then she was switched to cefepime. MEDICAL HISTORY: Significant for: 1. Alzheimer dementia. 2. Diabetes. 3. Hypertension. 4. Gout. 5. Hyperlipidemia. 6. Depression. 7. Chronic kidney disease, stage III-IV. 8. 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 SURGICAL HISTORY: 1. Cholecystectomy with sigmoid colectomy. 2. Appendectomy. 3. Hernia repair. SOCIAL HISTORY: She quit smoking years ago. Denies alcohol or drug use. She has been at the [facility] since July 2019 due to recurrent falls. Her healthcare proxy is her son, who had not seen her since October because of COVID-19. FAMILY HISTORY: Significant for coronary artery disease. ALLERGIES: SULFA, CODEINE, ERYTHROMYCIN, MEPERIDINE, PENTAZOCINE. MEDICATIONS: - Xalatan one drop both eyes every evening - Levophed - cefepime 1 gram IV every 12 hours - insulin sliding scale - pantoprazole 40 mg IV daily - milk of magnesia 30 mL as needed REVIEW OF SYSTEMS: She denies any nausea, vomiting, diarrhea. No abdominal pain. She has some bladder discomfort. No back pain. No rash. No headache. She is alert. She is forgetful but for the most part is able to converse appropriately. LABORATORY DATA: White count is 50.9, up from 18.4, hemoglobin 10.4, hematocrit 30.6, platelets 169, 90% neutrophils, 7% bands, 5% lymphocytes, 8% monocytes. Sodium 141, potassium 3.3, chloride 110, bicarbonate 16, BUN 46, down from 24, creatinine 3.38, glucose 162, lactic 8.1, down from 4.9. Calcium 7.6. AST 18, ALT 15, alkaline phosphatase 150, total CPK 52, total ____(cut out) 4.9, albumin 2.3. Lipase 117. Urine culture is pending. Blood cultures are pending. Respiratory panel is negative, including SARS-CoV. PHYSICAL EXAMINATION: She is a pleasant female in no acute distress. Temperature is 97.8, down from 102.1, pulse 80, respirations 20, blood pressure 129/60, oxygen saturation 96% on room air. HEART: Normal S1, S2. No murmurs appreciated. LUNGS: Clear. No wheezes, rales, or rhonchi. ABDOMEN: Soft, nontender. No hepatosplenomegaly. BACK: No costovertebral angle (CVA) tenderness. SKIN: No rashes. EXTREMITIES: No clubbing, cyanosis, or edema. Oropharynx is clear. Neck is supple. No stiffness. NEUROLOGIC: Alert, oriented to person. Does not know the date or the place. Moves all extremities. Upper and lower extremity strength seems to be normal. IMPRESSION: An 79-year-old female admitted with septic shock with systolic blood pressure down in the 70s with urinalysis suggestive of urinary tract infection with 43 white cells. Chest x-ray showed no acute findings. Patient does not have any pulmonary symptoms. CT abdomen and pelvis does sofia show any evidence of abscess with mild stranding of the upper left ureter and a nonobstructive calculus of 7 mm. PLAN: Patient had received one dose of Zosyn and one dose of vancomycin. She was then switched to cefepime, which would not cover for enterococcus, but for the time being vancomycin would cover that. Her vancomycin dose will last her for at least 48 hours with her kidney function. I have ordered a urine Gram statin to see if this is a gram-negative or gram-positive pathogen causing sepsis picture. Depending on result of urine culture, will de-escalate therapy. This severe leukocytosis probably is leukemoid reaction related to sepsis and will improve with antibiotics. I am not very concerned about that. MTDD
--- NOTE | 2020-04-08 19:50 | IPNPDOC ---
Date Seen The patient was seen on 04/08/20. Progress Note SUBJECTIVE: Patient seen and examined at bedside. Discussed with nursing. Munoz has been removed. PVR performed approximately 120 mL of urine remaining. Voiding spontaneously. Concern regarding reduced by mouth intake. Obtain dietary eval. Family at bedside. Encouraged to eat. Patient to modify menu to include pizza, cookies. OBJECTIVE PHYSICAL EXAMINATION: VITAL SIGNS: please see below General: NAD, comfortable HEENT: PERRLA, EOMI, sclerae clear Neck: supple, normal ROM, no JVD Respiratory: lungs CTAB, no wheeze, no rales, no crackles CVS: RRR, normal S1, S2, no murmurs Abdo: soft, no masses, no hepatosplenomegaly, BS+, no rebound tenderness Extremities: no edema, pulses 2+ MSK: no joint deformities, normal ROM Neuro: no focal neuro deficits, moving all 4 extremities, CN2-12 intact. Strength 5/5 in all 4 extremities. No nystagmus. Psych: calm, cooperative, confused AAO x 1 LABORATORY DATA, IMAGING STUDIES, MICROBIOLOGY: Please see below. DVT prophylaxis ordered?: Y 79-year-old female brought in after being found in the floor at her long term. pmhX of diabetes, hypertension, dementia, gout, hyperlipidemia, depression, CKD. Admitted for septic shock secondary to pyelonephritis. Patient was admitted to the ICU for further management. Patient was initially hypotensive requiring pressor support. Sepsis protocol. Started on vancomycin and cefepime which was later switched to Zosyn. Urine grew Escherichia coli and antibiotics were switched to targeted therapy with IV Unasyn and this will be switched to by mouth Keflex for 10 day course for treatment of pyelonephritis. Urology consulted for left renal stone and underwent cystoscopy w left ureteral stent placement with Dr Pitt 04/06. Discussed with Dr. Pitt plan for lithotripsy in 2-3 weeks which has office will arrange after she completes her treatment for pyelonephritis. Cleared for discharge back to long term by PT. # Septic shock: 2/2 pyelonephritis. Resolved. Off of pressors since 04/04. IVFs. Zosyn switch to targeted therapy for E coli with Unasyn. Lactate 8.1 on admission now 1.6. RVP/COVID negative. CXR reviewed. Downgrade to PCU 04/06. Tele. Remove femoral line 04/07. # Pyelonephritis: Intially fever/ L CVA tenderness. UCx. BCx negative 72hrs. IV Unasyn (Abx started 04/04). ID consulted. Will be transitioned to Keflex by mouth for 10 days total for an end date of April 18. Discussed treatment plan with Dr Godwin. # Left renal stone: Urology consulted for left renal stone and underwent cystoscopy w left ureteral stent placement with Dr Pitt 04/06. Lithotripsy in 2-3 weeks after pyelo is treated and BCx and repeat and negative. Dr Jeter office will arrange for this to be done. # TYLER on CKD: Improved. Nephro consulted. IVFs. Avoid nephrotoxins. # Suspected SBO: resolved. Now passing stool. diabetic diet. Good bowel sounds. # Hypokalemia: replace. monitor. # Poor appetite: nutrion eval. encourage eating. Provide comfort foods. Patient like pizza, peanut butter. Kitchen informed. # Abdo cramps: bentyl 10 mg PO BID. # Suspected fall: Suspected fall at long term. Chest CT, cervical spine CT, head CT and CXR reviewed. # DM: Hold home Januvia. ISS. Frequent Accu-Cheks. Hypoglycemic precautions. # HTN: good BP off of pressors since 04/04. Resume amlodipine. Monitor and titrate. # Urinary retention: PRV 700 mL. removed fully 04/07. Voiding trials and PRVs. Urology on consult. Would like her to be able to go back to an H without Munoz if she is not retaining anymore. # Dementia: Fall precautions. Risk of deconditioning and sun downing. Window bed and quiet time. PT/OT eval ok to go back to [facility]. Halidol IM low dose if needed for severe agitation. Needs regular BMs # History gout: Continue allopurinol # HLD: Continue home Lipitor # Depression: Continue Zoloft # DVT Prophylaxis: SCDs, Heparin q8h Dispo: plan for DC to [facility] on 04/09/20 VS, I&O, 24H, Fishbone Vital Signs/I&O Vital Signs Date Time Temp Pulse Resp B/P (MAP) Pulse Ox O2 Delivery O2 Flow Rate FiO2 04/08/20 16:00 98.3 79 20 149/71 (97) 94 Nasal Cannula 1.0 I&O- Last 24 Hours up to 6 AM 04/08/20 05:59 Intake Total 710 ml Output Total 2900 ml Balance -2190 ml Laboratory Data 24H LABS Laboratory Tests 2 04/07/20 19:53: Bedside Glucose (Misc Panel) 119H 04/08/20 09:28: Bedside Glucose (Misc Panel) 114H 04/08/20 10:10: Immature Granulocyte % (Auto) 0.9, Neutrophils (%) (Auto) 83.6H, Lymphocytes (%) (Auto) 8.4L, Monocytes (%) (Auto) 5.6H, Eosinophils (%) (Auto) 1.3, Basophils (%) (Auto) 0.2, Neutrophils # (Auto) 8.9H, Lymphocytes # (Auto) 0.9L, Monocytes # (Auto) 0.6, Eosinophils # (Auto) 0.1, Basophils # (Auto) 0.0, Nucleated Red Blood Cells % (auto) 0.0, Anion Gap 7L, Glomerular Filtration Rate 36.7, Calcium Level 7.5L, Total Bilirubin 0.4, Aspartate Amino Transf (AST/SGOT) 14, Alanine Aminotransferase (ALT/SGPT) 12, Alkaline Phosphatase 83, Total Protein 5.6L, Albumin 2.3L, Albumin/Globulin Ratio 0.7L 04/08/20 12:19: Bedside Glucose (Misc Panel) 113H 04/08/20 16:54: Bedside Glucose (Misc Panel) 113H CBC/BMP Laboratory Tests 04/08/20 10:10 Microbiology Microbiology 04/05/20 Stool Occult Blood (MARK) - Final, Complete 04/04/20 Respiratory Virus Panel (PCR) (MARK) - Final, Complete 04/04/20 Blood Culture - Preliminary, Resulted No Growth after 72 hours. All specime... 04/04/20 Urine Culture - Final, Complete Escherichia Coli 04/04/20 Blood Culture - Preliminary, Resulted No Growth after 72 hours. All specime... NJ CASAREZ MD Apr 08, 2020 19:50
[2020-04-08 20:00] VITALS: BP 148/60
[2020-04-08] MEDS: SERTRALINE HCL 50 MG TAB PO SCH (20:46)
[2020-04-08] MEDS: LATANOPROST 0.005% OPHTH SOLN 2.5 ML OU SCH (20:46)
[2020-04-08] MEDS: DICYCLOMINE 10 MG CAP PO SCH (20:46)
[2020-04-08] MEDS: ATORVASTATIN 20 MG TAB PO SCH (20:47)
[2020-04-09 04:00] VITALS: BP 147/65
[2020-04-09 04:57] LABS: BASO % 0.4 % (0.0-1.0); EOS # 0.3 10^3/uL (0.0-0.5); EOS % 2.9 % (0.0-3.0); HEMATOCRIT 27.1 % (36.0-47.0); HEMOGLOBIN 9.1 g/dl (12.0-15.5); LYMPH # 1.4 10^3/uL (1.5-5.0); LYMPH % 16.6 % (24.0-44.0); MEAN CORPUSCULAR HEMOGLOBIN 31.4 pg (27.0-33.0); MEAN CORPUSCULAR HGB CONC 33.6 g/dl (32.0-36.5); MEAN CORPUSCULAR VOLUME 93.4 fl (80.0-96.0); MONO % 12.2 % (0.0-5.0); NEUTROPHILS # 5.7 10^3/uL (1.5-8.5); PLATELET COUNT, AUTOMATED 258 10^3/uL (150-450); WHITE BLOOD COUNT 8.5 10^3/uL (4.0-10.0)
[2020-04-09 05:13] LABS: ALBUMIN 2.1 GM/DL (3.2-5.2); BILIRUBIN,TOTAL 0.4 MG/DL (0.2-1.0); CALCIUM LEVEL 7.1 MG/DL (8.8-10.2); CREATININE FOR GFR 1.35 MG/DL (0.55-1.30); GLOMERULAR FILTRATION RATE 40.2 (>32); POTASSIUM SERUM 4.2 MEQ/L (3.5-5.1); TOTAL PROTEIN 5.1 GM/DL (6.4-8.2)
[2020-04-09] MEDS: SLF 3 ML SYR IV SCH ×3 (06:00→21:07)
[2020-04-09] MEDS: CEPHALEXIN 500 MG CAP PO SCH ×3 (07:10→21:06)
[2020-04-09] MEDS: HEPARIN SOD (PORCINE) 5000UNITS/ML 1ML VIAL/SYRINGE SC SCH ×3 (07:10→21:07)
[2020-04-09] MEDS: HumaLOG INSULIN (NovoLOG) PER UNIT SC SCH ×4 (07:30→21:00)
[2020-04-09 08:00] VITALS: BP 145/78
[2020-04-09] MEDS: PANTOPRAZOLE 40MG TAB (PROTONIX) PO SCH (08:43)
[2020-04-09] MEDS: DICYCLOMINE 10 MG CAP PO SCH ×2 (08:43→21:06)
[2020-04-09] MEDS: allopurinoL 100 MG TAB PO SCH (08:43)
[2020-04-09] MEDS: GABAPENTIN 400 MG CAP PO SCH ×2 (08:43→21:06)
[2020-04-09 08:44] VITALS: BP 145/78
[2020-04-09] MEDS: amLODIPine 5 MG TAB PO SCH (08:44)
--- NOTE | 2020-04-09 10:42 | IPNPDOC ---
Date Seen The patient was seen on 04/09/20. Progress Note SUBJECTIVE: Patient seen and examined at bedside. Reports no abdominal pain, no fevers, chills, or chest pain. Per RN patient did not have any ensure this morning, still continues to avoid eating. Obtain dietary eval. Encouraged to eat. Patient to modify menu to include pizza, cookies. OBJECTIVE PHYSICAL EXAMINATION: VITAL SIGNS: please see below General: NAD, comfortable HEENT: PERRLA, EOMI, sclerae clear Neck: supple, normal ROM, no JVD Respiratory: lungs CTAB, no wheeze, no rales, no crackles CVS: RRR, normal S1, S2, no murmurs Abdo: soft, no masses, no hepatosplenomegaly, BS+, no rebound tenderness Extremities: no edema, pulses 2+ MSK: no joint deformities, normal ROM Neuro: no focal neuro deficits, moving all 4 extremities, CN2-12 intact. Strength 5/5 in all 4 extremities. No nystagmus. Psych: calm, cooperative, confused AAO x 1 LABORATORY DATA, IMAGING STUDIES, MICROBIOLOGY: Please see below. DVT prophylaxis ordered?: Y 79-year-old female brought in after being found in the floor at her custodial. pmhX of diabetes, hypertension, dementia, gout, hyperlipidemia, depr ession, CKD. Admitted for septic shock secondary to pyelonephritis. Patient was admitted to the ICU for further management. Patient was initially hypotensive requiring pressor support. Sepsis protocol. Started on vancomycin and cefepime which was later switched to Zosyn. Urine grew Escherichia coli and antibiotics were switched to targeted therapy with IV Unasyn and this will be switched to by mouth Keflex for 10 day course for treatment of pyelonephritis. Urology consulted for left renal stone and underwent cystoscopy w left ureteral stent placement with Dr Pitt 04/06. Discussed with Dr. Pitt plan for lithotripsy in 2-3 weeks which has office will arrange after she completes her treatment for pyelonephritis. Cleared for discharge back to custodial by PT. Patient currently not eating, DC delayed until improves. # Septic shock: 2/2 pyelonephritis. Resolved. Off of pressors since 04/04. IVFs. Zosyn switch to targeted therapy for E coli with Unasyn. Lactate 8.1 on admission now 1.6. RVP/COVID negative. CXR reviewed. Downgrade to PCU 04/06. Tele. Remove femoral line 04/07. # Pyelonephritis: Intially fever/ L CVA tenderness. UCx. BCx negative 72hrs. IV Unasyn (Abx started 04/04). ID consulted. Will be transitioned to Keflex by mouth for 10 days total for an end date of April 18. Discussed treatment plan with Dr Godwin. # Left renal stone: Urology consulted for left renal stone and underwent cystoscopy w left ureteral stent placement with Dr Pitt 04/06. Lithotripsy in 2-3 weeks after pyelo is treated and BCx and repeat and negative. Dr Jeter office will arrange for this to be done. # TYLER on CKD: Improved. Nephro consulted. IVFs. Avoid nephrotoxins. # Suspected SBO: resolved. Now passing stool. diabetic diet. Good bowel sounds. # Hypokalemia: replace. monitor. # Poor appetite: nutrion eval. encourage eating. Provide comfort foods. Patient like pizza, peanut butter. Kitchen informed. Consider megestrol vs mirtazepine. Discussed with Psych, Dr. Mina. Recommend mirtazepine 7.5 mg qhs, monitor for response, sedating effect. # Abdo cramps: bentyl 10 mg PO BID. # Suspected fall: Suspected fall at custodial. Chest CT, cervical spine CT, head CT and CXR reviewed. # DM: Hold home Januvia. ISS. Frequent Accu-Cheks. Hypoglycemic precautions. # HTN: good BP off of pressors since 04/04. Resume amlodipine. Monitor and titrate. # Urinary retention: resolved. Munoz DC 04/07. # Dementia: Fall precautions. Risk of deconditioning and sun downing. Window bed and quiet time. PT/OT eval ok to go back to NH. Haldol IM low dose if needed for severe agitation. # History gout: Continue allopurinol # HLD: Continue home Lipitor # Depression: Continue Zoloft # DVT Prophylaxis: SCDs, Heparin q8h Dispo: plan to DC to [facility] pending improvement in appetite. VS, I&O, 24H, Fishbone Vital Signs/I&O Vital Signs Date Time Temp Pulse Resp B/P (MAP) Pulse Ox O2 Delivery O2 Flow Rate FiO2 04/09/20 08:44 76 145/78 04/09/20 08:00 98.5 20 94 Nasal Cannula 1.0 I&O- Last 24 Hours up to 6 AM 04/09/20 06:00 Intake Total 360 ml Output Total 950 ml Balance -590 ml Laboratory Data 24H LABS Laboratory Tests 2 04/08/20 12:19: Bedside Glucose (Misc Panel) 113H 04/08/20 16:54: Bedside Glucose (Misc Panel) 113H 04/08/20 20:38: Bedside Glucose (Misc Panel) 117H 04/09/20 04:39: Immature Granulocyte % (Auto) 0.9, Neutrophils (%) (Auto) 67.0H, Lymphocytes (%) (Auto) 16.6L, Monocytes (%) (Auto) 12.2H, Eosinophils (%) (Auto) 2.9, Basophils (%) (Auto) 0.4, Neutrophils # (Auto) 5.7, Lymphocytes # (Auto) 1.4L, Monocytes # (Auto) 1.0H, Eosinophils # (Auto) 0.3, Basophils # (Auto) 0.0, Nucleated Red Blood Cells % (auto) 0.0, Anion Gap 7L, Glomerular Filtration Rate 40.2, Calcium Level 7.1L, Total Bilirubin 0.4, Aspartate Amino Transf (AST/SGOT) 13, Alanine Aminotransferase (ALT/SGPT) 10L, Alkaline Phosphatase 72, Total Protein 5.1L, Albumin 2.1L, Albumin/Globulin Ratio 0.7L CBC/BMP Laboratory Tests 04/09/20 04:39 Microbiology Microbiology 04/05/20 Stool Occult Blood (MARK) - Final, Complete 04/04/20 Respiratory Virus Panel (PCR) (MARK) - Final, Complete 04/04/20 Blood Culture - Final, Complete NO GROWTH AFTER 5 DAYS 04/04/20 Urine Culture - Final, Complete Escherichia Coli 04/04/20 Blood Culture - Final, Complete NO GROWTH AFTER 5 DAYS NJ CASAREZ MD Apr 09, 2020 10:42
[2020-04-09 12:00] VITALS: BP 149/79
[2020-04-09 16:00] VITALS: BP 147/70
[2020-04-09 20:00] VITALS: BP 139/67
[2020-04-09] MEDS ORDERED: MIRTAZAPINE 7.5MG PER 1/2 TABLET PO SCH (21:00)
[2020-04-09] MEDS: SERTRALINE HCL 50 MG TAB PO SCH (21:05)
[2020-04-09] MEDS: LATANOPROST 0.005% OPHTH SOLN 2.5 ML OU SCH (21:06)
[2020-04-09] MEDS: ATORVASTATIN 20 MG TAB PO SCH (21:06)
[2020-04-09] MEDS: ACETAMINOPHEN TAB 650MG DOSE (2X325MG) PO PRN (21:19)
[2020-04-10] VITALS: BP 140/62
[2020-04-10 04:00] VITALS: BP 132/62
[2020-04-10 05:18] LABS: BASO % 0.5 % (0.0-1.0); EOS # 0.3 10^3/uL (0.0-0.5); EOS % 5.3 % (0.0-3.0); HEMATOCRIT 27.9 % (36.0-47.0); HEMOGLOBIN 9.4 g/dl (12.0-15.5); LYMPH # 1.9 10^3/uL (1.5-5.0); LYMPH % 31.8 % (24.0-44.0); MEAN CORPUSCULAR HEMOGLOBIN 31.8 pg (27.0-33.0); MEAN CORPUSCULAR HGB CONC 33.7 g/dl (32.0-36.5); MEAN CORPUSCULAR VOLUME 94.3 fl (80.0-96.0); MONO # 0.8 10^3/uL (0.0-0.8); MONO % 13.6 % (0.0-5.0); NEUTROPHILS # 2.7 10^3/uL (1.5-8.5); NEUTROPHILS % 47.1 % (36.0-66.0); PLATELET COUNT, AUTOMATED 295 10^3/uL (150-450); RED BLOOD COUNT 2.96 10^6/uL (4.00-5.40); WHITE BLOOD COUNT 5.8 10^3/uL (4.0-10.0)
[2020-04-10 05:44] LABS: ALBUMIN 2.1 GM/DL (3.2-5.2); BILIRUBIN,TOTAL 0.2 MG/DL (0.2-1.0); CALCIUM LEVEL 7.3 MG/DL (8.8-10.2); CREATININE FOR GFR 1.33 MG/DL (0.55-1.30); GLOMERULAR FILTRATION RATE 40.9 (>32); POTASSIUM SERUM 3.9 MEQ/L (3.5-5.1); TOTAL PROTEIN 5.1 GM/DL (6.4-8.2)
[2020-04-10] MEDS: CEPHALEXIN 500 MG CAP PO SCH ×2 (06:34→12:59)
[2020-04-10] MEDS: HEPARIN SOD (PORCINE) 5000UNITS/ML 1ML VIAL/SYRINGE SC SCH ×2 (06:34→12:58)
[2020-04-10] MEDS: SLF 3 ML SYR IV SCH (06:36)
[2020-04-10] MEDS: HumaLOG INSULIN (NovoLOG) PER UNIT SC SCH ×2 (07:30→12:37)
[2020-04-10 08:00] VITALS: BP 148/63
[2020-04-10] MEDS: DICYCLOMINE 10 MG CAP PO SCH (09:22)
[2020-04-10] MEDS: PANTOPRAZOLE 40MG TAB (PROTONIX) PO SCH (09:22)
[2020-04-10] MEDS: GABAPENTIN 400 MG CAP PO SCH (09:22)
[2020-04-10] MEDS: amLODIPine 5 MG TAB PO SCH (09:22)
[2020-04-10] MEDS: allopurinoL 100 MG TAB PO SCH (09:23)
--- NOTE | 2020-04-10 10:17 | IPN ---
DATE: 04/05/2020 SUBJECTIVE: Patient was seen and examined at the bedside today morning in the ICU. She was getting I.V. fluid hydration. Her urine output is improving, however, she still has persistent leukocytosis. Her creatinine is improving as compared with yesterday, however, patient does report pain in the left flank and pain is almost 8/10 in intensity and moves from her back up to the front of her abdomen. Patient was also nauseated in the morning and she was given a dose of Zofran. OBJECTIVE: Vital signs: Temperature 98.6 degrees Fahrenheit, blood pressure 132/63, pulse 84, respiratory rate 18, saturating 94% on room air. Intake and output: Urine output recorded as 1.6 liters yesterday, 1135 mL so far today since overnight. Weight in the bed scale is 72.8 kg. PHYSICAL EXAMINATION: GENERAL: Patient is awake, alert and oriented x3, lying in bed, in moderate painful distress. HEAD AND NECK: Extraocular muscles intact. Pupils equally round and reactive to light. Mucous membranes are moist. Neck is supple. There is no significant JVD. CARDIOVASCULAR: S1, S2, regular rate. No edema of the bilateral lower extremities. RESPIRATORY: Chest is clear to auscultation bilaterally. Bilateral equal air entry. No rales or rhonchi. ABDOMEN: Soft, obese, moderate amount of tenderness in the left renal fossa. She has left CVA tenderness as well. There is some rebound tenderness in the left renal fossa as well. : She has an indwelling Munoz catheter. Urine in the bag is pale colored. MUSCULOSKELETAL: No clubbing or cyanosis. Pulses are 2+. INSTALLER: No focal deficit. Power is 5/5 in bilateral upper extremities. LABORATORY REVIEWS: CBC showed WBC 31.9, hemoglobin 8.8, platelets 151,000. BMP showed sodium 146, potassium 3.3, chloride 114, bicarb 21, BUN 38, creatinine 2.5. Lactic acid 1.6 today. Calcium 7. Albumin 2. MICROBIOLOGY: Blood cultures are negative so far. Urine culture is pending. IMAGING STUDIES: CAT scan of the abdomen and pelvis done yesterday showed mild stranding adjacent to the left upper ureter, left renal extrarenal pelvis with a known obstructing dependent 7 cm calculus. CURRENT INPATIENT MEDICATIONS: Patient was getting Levophed, which is on hold now. She was getting I.V. bicarbonating fluid. I have stopped the bicarb fluid and started her on KCl 20 mEq and D5 half normal saline at 125 cc an hour. She was also started on Zosyn 2.25 gram I.V. every 8 hours. She was given a dose of I.V. Vancomycin. She is on insulin Lispro sliding scale. She was given a dose of morphine 2 mg I.V. x1 dose, Zofran 2 mg I.V. every 4 hours p.r.n. nausea/vomiting. She is on Protonix 40 mg I.V. daily and potassium chloride 40 mEq p.o. one dose was given today morning. ASSESSMENT & PLAN: 1. Septic shock secondary to pyelonephritis: Patient is currently on I.V. Vancomycin and Zosyn. She continues to be on I.V. fluid hydration. She is off the pressors now. Lactic acid is better, however, she still has persistent leukocytosis. Dose of I.V. antibiotics will be changed according to the renal function. Continue to monitor in the ICU at this time. 2. Pyelonephritis with left-sided hydroureter and hydronephrosis: Patient got a repeat CAT scan done because of left-sided CVA tenderness. Repeat CAT scan of the abdomen and pelvis showed progression of the previously noted 7 mm left renal calculus into the proximal ureter with resultant mild upstream hydronephrosis and perinephric inflammation. This is causing pain and worsening pyelonephritis. Continue the I.V. antibiotics. The case has already been discussed by the medical team with urology. If needed, patient might get retrograde pyelogram and left-sided ureteral stent. 3. Hypernatremia: It is secondary to I.V. fluid hydration and decreased oral intake. I have changed the I.V. fluid to KCl 20 mEq with half normal saline. Continue to encourage oral hydration. 4. Hypokalemia: Patient was already given oral potassium today morning and I have added potassium to the I.V. fluids as well. 5. Acute renal failure superimposed on chronic kidney disease: It is secondary to a combination of septic shock, left-sided stone and hydronephrosis, acute pyelonephritis. Continue to encourage oral fluid. Continue I.V. fluids for now. Renal function is slowly improving and she has good urine output. 6. Metabolic acidosis: Patient had normal anion gap metabolic acidosis on arrival: It is secondary to acute renal failure. She was given I.V. bicarb containing fluids. Acidosis has resolved. I.V. fluids have been changed to half normal saline with KCl. MICHELL
--- NOTE | 2020-04-10 10:18 | IPN ---
DATE: 04/06/2020 SUBJECTIVE: Patient is seen and examined at the bedside today morning in the ICU. She had just come back after getting the retrograde pyelogram and left- sided ureteral stent placed. She no longer complains of pain in the left side. She is hemodynamically stable, not requiring any pressors at this time. No significant improvement in the renal function on the labs done prior to the left-sided ureteral stent. OBJECTIVE: Vital signs: Temperature 98.1 degrees Fahrenheit, blood pressure 154/67, pulse 80, respiratory rate 22, saturating 99% on room air. Intake and output: Urine output recorded as 1.5 liters so far today. Weight in the bed scale is 74.6 kg. PHYSICAL EXAMINATION: GENERAL: Patient is awake, alert and oriented x3, lying in bed, in no apparent distress. HEAD AND NECK: Extraocular muscles intact. Pupils equally round and reactive to light. Mucous membranes are moist. Neck is supple. There is no JVD. CARDIOVASCULAR: S1, S2, regular rate. No edema of the bilateral lower extremities. RESPIRATORY: Chest is clear to auscultation bilaterally. Bilateral equal air entry. No rales or rhonchi. ABDOMEN: Soft, positive bowel sounds, nontender. No organomegaly. : She has an indwelling Munoz catheter. MUSCULOSKELETAL: No clubbing or cyanosis. Pulses are 2+. She has a right groin triple lumen catheter. STOREROOM CLERK: No focal deficit. Power is 5/5 in all extremities. LAB REVIEW: CBC showed WBC 26.6, hemoglobin 8.8, platelets 151,000. BMP showed sodium 143, potassium 4.6, chloride 114, bicarb 24, BUN 32, creatinine 2.5, glucose 126. Calcium 7. Albumin 2. MICROBIOLOGY: Blood cultures are negative so far. Urine culture is being equalized. IMAGING STUDIES: Retrograde pyelogram was done today morning; report is still pending. CURRENT INPATIENT MEDICATIONS: Patient's medications were all reviewed by myself. She continues to be on I.V. fluid hydration. I am going to cut down the I.V. fluid rate. She continues to be on I.V. Zosyn, which has been switched to Unasyn 1.5 grams every 12 hours. No other significant change in the medications today as compared with yesterday. ASSESSMENT AND PLAN: 1. Acute renal failure superimposed on chronic kidney disease: It is secondary to severe sepsis and left-sided pyelonephritis. She is currently getting I.V. fluid hydration. Creatinine has plateaued at 2.5 and I am hopeful that with the left-sided ureteral stent placement, the renal function should further improve. 2. Hypernatremia: It has improved with the I.V. fluid hydration. I am going to decrease the I.V. fluid rate since blood pressures are going up now. 3. Hyperkalemia: It is controlled with I.V. fluid containing potassium. 4. Left-sided hydroureter and hydronephrosis with left-sided ureteral stone: Patient got the retrograde pyelogram and stent placed in the left ureter by urology today. 5. E. Coli urinary tract infection: Zosyn has been stopped, she is currently on Unasyn. MTDD
[2020-04-10] MEDS ORDERED: CEPH500C PO ×2 (11:13→11:14)
[2020-04-10] MEDS ORDERED: REME15TA PO ×2 (11:13→11:14)
--- NOTE | 2020-04-10 11:14 | DS.PDOC ---
Discharge Summary General Date of Admission Apr 04, 2020 at 08:20 Date of Discharge 04/10/2020 Discharge Summary PROCEDURES PERFORMED DURING STAY: renal stent placement ADMITTING DIAGNOSES: septic shock UTI left renal stone TYLER on CKD hypokalemia suspect SBO fall DM2 HTN urinary retention Dementia gout HLD depression DISCHARGE DIAGNOSES: septic shock pyelonephritis left renal stone TYLER on CKD hypokalemia suspect SBO fall DM2 HTN urinary retention Dementia gout HLD depression COMPLICATIONS/CHIEF COMPLAINT: Acute Kidney Injury Dehydration Severe Sepsis. HISTORY OF PRESENT ILLNESS: 79-year-old female brought in after being found in the floor at her half-way. Patient was seen in the emergency department where limited history could be obtained from patient. Able to answer basic yes/no questions. She endorses dysuria and doesn't remember coming into the hospital. In the ED patient was febrile and hypotensive started on peripheral norepinephrine for hypertension. MAP is 82 when I saw her in the room. EKG is normal sinus. Patient was given 1 dose of Zosyn in the ED and fluids for septic shock. Patientadmitted to the ICU for management of septic shock. HOSPITAL COURSE: 79-year-old female brought in after being found in the floor at her half-way. pmhX of diabetes, hypertension, dementia, gout, hyperlipidemia, depression, CKD. Admitted for septic shock secondary to pyelonephritis. Patient was admitted to the ICU for further management. Patient was initially hypotensive requiring pressor support. Sepsis protocol. Started on vancomycin and cefepime which was later switched to Zosyn. Urine grew Escherichia coli and antibiotics were switched to targeted therapy with IV Unasyn and this will was switched to by mouth Keflex for 10 day course for treatment of pyelonephritis (end of therapy 04/18/20). Urology consulted for left renal stone and underwent cystoscopy w left ureteral stent placement with Dr Pitt 04/06. Discussed with Dr. Pitt plan for lithotripsy in 2-3 weeks which has office will arrange after she completes her treatment for pyelonephritis. Cleared for discharge back to half-way by PT. Additional issues were addressed as follows: # Septic shock: 2/2 pyelonephritis. Resolved. Off of pressors since 04/04. IVFs. Zosyn switch to targeted therapy for E coli with Unasyn. Lactate 8.1 on admission now 1.6. RVP/COVID negative. CXR reviewed. Downgrade to PCU 04/06. Tele. Remove femoral line 04/07. # Pyelonephritis: Intially fever/ L CVA tenderness. UCx. BCx negative 72hrs. IV Unasyn (Abx started 04/04). ID consulted. Will be transitioned to Keflex by mouth for 10 days total for an end date of April 18. Discussed treatment plan with Dr Godwin. # Left renal stone: Urology consulted for left renal stone and underwent cystoscopy w left ureteral stent placement with Dr Pitt 04/06. Lithotripsy in 2-3 weeks after pyelo is treated and BCx and repeat and negative. Dr Pitt's office will arrange for this to be done. # TYLER on CKD: Improved. Nephro consulted. IVFs. Avoid nephrotoxins. # Suspected SBO: resolved. Now passing stool. diabetic diet. Good bowel sounds. # Hypokalemia: replace. monitor. # Poor appetite: nutrion eval. encourage eating. Provide comfort foods. Patient like pizza, peanut butter. Kitchen informed. Consider megestrol vs mirtazepine. Discussed with Psych, Dr. Mina. Recommend mirtazepine 7.5 mg qhs, monitor for response, sedating effect. # Abdo cramps: bentyl 10 mg PO BID. # Suspected fall: Suspected fall at half-way. Chest CT, cervical spine CT, head CT and CXR reviewed. # DM: Hold home Januvia. ISS. Frequent Accu-Cheks. Hypoglycemic precautions. # HTN: good BP off of pressors since 04/04. Resume amlodipine. Monitor and titrate. # Urinary retention: resolved. Munoz DC 04/07. # Dementia: Fall precautions. Risk of deconditioning and sun downing. Window bed and quiet time. PT/OT eval ok to go back to NH. Haldol IM low dose if needed for severe agitation. # History gout: Continue allopurinol # HLD: Continue home Lipitor # Depression: Continue Zoloft DISCHARGE MEDICATIONS: Please see below. ALLERGIES: Please see below. PHYSICAL EXAMINATION ON DISCHARGE: VITAL SIGNS: Please see below. General: NAD, comfortable HEENT: PERRLA, EOMI, sclerae clear Neck: supple, normal ROM, no JVD Respiratory: lungs CTAB, no wheeze, no rales, no crackles CVS: RRR, normal S1, S2, no murmurs Abdo: soft, no masses, no hepatosplenomegaly, BS+, no rebound tenderness Extremities: no edema, pulses 2+ MSK: no joint deformities, normal ROM Neuro: no focal neuro deficits, moving all 4 extremities, CN2-12 intact. Streng th 5/5 in all 4 extremities. No nystagmus. Psych: calm, cooperative, confused AAO x 1 LABORATORY DATA: Please see below. IMAGING: CT brain (04/04/20): Brain: Mild cerebral volume loss. No hemorrhage. Unremarkable white matter. No mass effect. Cerebral ventricles: No ventriculomegaly. Bones/joints: Unremarkable. No acute fracture. Paranasal sinuses: Visualized sinuses are unremarkable. No fluid levels. Mastoid air cells: Visualized mastoid air cells are well aerated. Soft tissues: Unremarkable. IMPRESSION: No acute intracranial abnormality. CT c-spine (04/04/20): FINDINGS: Vertebrae: Normal alignment. Advanced discogenic degenerative changes at C5-C6 and C6-C7. Multilevel facet DJD. No acute fracture. Borderline spinal stenosis at C5-C6. Soft tissues: Unremarkable. Lungs: Lung apices are normal. IMPRESSION: 1. No fracture or malalignment. 2. Degenerative spondylosis as above. CT chest (04/04/20): FINDINGS: Lungs: Dependent subsegmental pulmonary atelectasis. Pleural space: Unremarkable. No pneumothorax. No pleural effusion. Heart: Unremarkable. No cardiomegaly. No pericardial effusion. Mediastinal space: Small gastroesophageal sliding type hiatal hernia. Aorta: Unremarkable. No aortic aneurysm. Veins: Couple scattered foci of venous gas related to intravenous line. Lymph nodes: Unremarkable. No enlarged lymph nodes. Liver: Enlarged low attenuating liver, evidence of hepatic steatosis. Bones/joints: Mild pectus excavatum chest deformity. Soft tissues: Unremarkable. IMPRESSION: No airspace consolidation, or evidence of pulmonary infection. PROGNOSIS: good ACTIVITY: [As tolerated]. DIET: regular (given DM, consistent carbo is more appropriate, however patient has had reduced appetite, therefore recommending regular diet for now). DISCHARGE PLAN: SSV with PCP and specialist follow up - nephrology and urology. DISPOSITION: . DISCHARGE INSTRUCTIONS: PLEASE FOLLOW UP WITH YOUR PRIMARY CARE DOCTOR WITHIN 3-5 DAYS PLEASE FOLLOW UP WITH NEPHROLOGY WITHIN 1-2 WEEKS PLEASE FOLLOW UP WITH UROLOGY WITHIN 2-3 WEEKS PLEASE COMPLETE ANTIBIOTICS (KEFLEX) UNTIL 04/18/20 PLEASE TAKE YOUR MEDICATIONS PRESCRIBED IF YOU DEVELOP CHEST PAIN, SHORTNESS OF BREATH, FEVERS, CHILLS, BLEEDING OR OTHERWISE WORSENING FO YOUR SYMPTOMS, PLASE CALL 911 OR RETURN TO THE EMERGENCY DEPARTMENT. ITEMS TO FOLLOWUP ON ON OUTPATIENT: 1. BMP to monitor renal function. DISCHARGE CONDITION: [Stable]. TIME SPENT ON DISCHARGE: Greater than 30 minutes. Vital Signs/I&Os Vital Signs Date Time Temp Pulse Resp B/P (MAP) Pulse Ox O2 Delivery O2 Flow Rate FiO2 04/10/20 08:00 97.9 69 18 148/63 (91) 96 Nasal Cannula 0.5 I&O- Last 24 Hours up to 6 AM 04/10/20 05:59 Intake Total 240 ml Output Total 0 ml Balance 240 ml Laboratory Data Labs 24H Laboratory Tests 2 04/09/20 12:00: Bedside Glucose (Misc Panel) 99 04/09/20 17:05: Bedside Glucose (Misc Panel) 112H 04/09/20 20:59: Bedside Glucose (Misc Panel) 124H 04/10/20 04:49: Immature Granulocyte % (Auto) 1.7, Neutrophils (%) (Auto) 47.1, Lymphocytes (%) (Auto) 31.8, Monocytes (%) (Auto) 13.6H, Eosinophils (%) (Auto) 5.3H, Basophils (%) (Auto) 0.5, Neutrophils # (Auto) 2.7, Lymphocytes # (Auto) 1.9, Monocytes # (Auto) 0.8, Eosinophils # (Auto) 0.3, Basophils # (Auto) 0.0, Nucleated Red Blood Cells % (auto) 0.0, Anion Gap 6L, Glomerular Filtration Rate 40.9, Calcium Level 7.3L, Total Bilirubin 0.2, Aspartate Amino Transf (AST/SGOT) 14, Alanine Aminotransferase (ALT/SGPT) 11L, Alkaline Phosphatase 71, Total Protein 5.1L, Albumin 2.1L, Albumin/Globulin Ratio 0.7L 04/10/20 11:05: CBC/BMP Laboratory Tests 04/10/20 04:49 FSBS Laboratory Tests Test 04/09/20 12:00 04/09/20 17:05 04/09/20 20:59 Range/Units Bedside Glucose (Misc Panel) 99 112 124 83-110 MG/DL Microbiology Microbiology 04/05/20 Stool Occult Blood (MARK) - Final, Complete 04/04/20 Respiratory Virus Panel (PCR) (MARK) - Final, Complete 04/04/20 Blood Culture - Final, Complete NO GROWTH AFTER 5 DAYS 04/04/20 Urine Culture - Final, Complete Escherichia Coli 04/04/20 Blood Culture - Final, Complete NO GROWTH AFTER 5 DAYS Discharge Medications Scheduled Allopurinol (Allopurinol) 100 Mg Tab, 100 MG PO DAILY, (Reported) Amlodipine Besylate (Norvasc) 5 Mg Tablet, 5 MG PO DAILY, (Reported) Atorvastatin Calcium (Atorvastatin Calcium) 20 Mg Tab, 20 MG PO QPM, (Reported) Azelastine HCl (Azelastine HCl) 0.05% 6ML Drops, 1 DROP OU BID, (Reported) Calcium Carbonate/Vitamin D3 (Calcium 600-Vit D3 200 Tablet) 1 Tab Tab, 1 TAB PO BID, (Reported) Cephalexin (Cephalexin) 500 Mg Capsule, 500 MG PO Q8H Cyanocobalamin (Vitamin B-12) (Vitamin B-12) 500 Mcg Tab, 500 MCG PO DAILY, (Reported) Gabapentin (Gabapentin) 400 Mg Capsule, 400 MG PO BID, (Reported) Latanoprost (Xalatan) 0.005% 2.5ML Drops, 1 DROP OU QPM, (Reported) Mirtazapine (Remeron) 15 Mg Tablet, 7.5 MG PO QHS Multivitamin (Multivitamins) 1 Cap Cap, 1 CAP PO DAILY, (Reported) Pantoprazole Sodium (Protonix) 40 Mg Tab, 40 MG PO DAILY, (Reported) Sertraline HCl (Sertraline HCl) 50 Mg Tablet, 50 MG PO QPM, (Reported) Sitagliptin Phosphate (Januvia) 25 Mg Tablet, 25 MG PO DAILY, (Reported) Vit A/Vit C/Vit E/Zinc/Copper (Preservision Areds Softgel) 1 Each Capsule, 1 CAP PO QPM, (Reported) Scheduled PRN Acetaminophen (Acetaminophen) 325 Mg Tablet, 650 MG PO Q4H PRN for PAIN, (Reported) Bisacodyl (Bisacodyl) 10 Mg Supp.rect, 10 MG [place] DAILY PRN for CONSTIPATION, (Reported) Magnesium Hydroxide (Milk of Magnesia) 400 Mg/5 Ml Oral.susp, 30 ML PO DAILY PRN for CONSTIPATION, (Reported) Sodium Phosphate,[place]-Dibasic (Enema) 133 Ml Enema, 1 ILYA [place] DAILY PRN for CONSTIPATION, (Reported) Allergies Coded Allergies: Sulfa (Sulfonamide Antibiotics) (Verified Allergy, Unknown, 06/24/19) codeine (Verified Allergy, Unknown, 06/24/19) erythromycin base (Verified Allergy, Unknown, 06/24/19) meperidine (Verified Allergy, Unknown, 06/24/19) pentazocine (Verified Allergy, Unknown, 06/24/19) NJ CASAREZ MD Apr 10, 2020 11:14
[2020-04-10 12:00] VITALS: BP 146/65
[2020-04-10] MEDS: ACETAMINOPHEN TAB 650MG DOSE (2X325MG) PO PRN (12:36)
--- NOTE | 2020-04-11 07:25 | REP ---
C-ARM VIEWS ABDOMEN AND PELVIS DURING URETERAL STENT PLACEMENT TECHNIQUE: Two C-arm views abdomen and pelvis performed. FINDINGS: Contrast partially opacifies the left pelvicalyceal system. A left ureteral stent is placed with the proximal end coiled in the left renal pelvis and the distal end in the urinary bladder. FLUOROSCOPY TIME: 14 seconds utilized. MTDD
--- NOTE | 2020-04-11 14:00 | IPN ---
DATE: 04/07/2020 SUBJECTIVE: Patient was seen and examined at the bedside today morning in the progressive care unit (PCU), she was downgraded from the intensive care unit (ICU) yesterday. Her leukocytosis is getting better. Her IV fluids were also decreased yesterday. Renal function continues to improve, creatinine is down to 1.8 today. I was told by the nursing staff that patient is not interested in eating anything, she is very sleepy. Otherwise, she denies any active complaints. OBJECTIVE: Vital signs: Temperature is 97.8 degrees Fahrenheit, blood pressure 147/81, pulse is 84, respiratory rate of 16, saturating 96% on nasal cannula at two liters. Intake and output: Urine output recorded is 2.5 liters yesterday, 325 mL so far today since overnight. Weight in the bed scale is 68.9 kg which is stable since yesterday. PHYSICAL EXAMINATION: General: Patient is awake, alert, oriented times three, laying in bed, no apparent distress. Head and neck exam: Extraocular muscles intact. Pupils equally round and reactive to light. Mucous membranes are moist. Neck is supple. Mildly elevated jugular venous distension (JVD) was noted. Cardiovascular: S1, S2, regular rate. No edema of the bilateral lower extremities. Respiratory: Chest is clear to auscultation bilaterally. Bilateral equal air entry. No rales or rhonchi. Abdomen: Soft, positive bowel sounds, nontender, no organomegaly. Genitourinary: She has an indwelling Munoz catheter. Musculoskeletal: No clubbing or cyanosis. Pulses are 2+. 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 Power is 5/5 in all extremities. LABORATORY REVIEW: CBC showed WBC of 13.6, it was 26.6 yesterday, hemoglobin is 8.8, platelets are 158. BMP showed sodium 139, potassium 4.7, chloride 112, bicarbonate 21, BUN 21, creatinine is 1.8, it was 2.5 yesterday, calcium is 7, albumin is 2. CURRENT INPATIENT MEDICATIONS: Patients medications were all reviewed by myself. She is currently on Unasyn 1.5 grams IV every 12 hours. Zofran dose has been decreased. I am going to stop her morphine now. ASSESSMENT AND PLAN: 1. Acute renal failure. It was secondary to sepsis and pyelonephritis. Renal function is improving. No need of IV fluid hydration now. Continue to encourage oral hydration. 2. Acute pyelonephritis secondary to Escherichia (E) coli. White cell count is improving. Continue the Unasyn at this time. Patient is status post left-sided ureteral stent placement. Left-sided ureteral stone was causing left-sided hydroureteronephrosis. 3. Chronic gout secondary to chronic kidney disease. Continue current dose of allopurinol 100 mg by mouth daily. 4. Hypertension. Patient was started on amlodipine 5 mg by mouth daily and I have stopped the IV fluids now. MTDD
--- NOTE | 2020-04-11 14:07 | IPN ---
INFECTIOUS DISEASE PROGRESS NOTE DATE: 04/07/2020 SUBJECTIVE: Kaia is doing well. She denies any complaints. She has no nausea, vomiting or diarrhea. She was seen in consultation by Dr. Pitt for E. Coli urinary tract infection with an obstructing 7 mm proximal left ureteral stone. She had a cystoscopy and left ureteral stent placement. Her white count is improving; it is down to 13. LABORATORY DATA: White count 13.6 down from 50.9, hemoglobin 8.8, hematocrit 25.8, platelets 158,000, 84% neutrophils, 8% lymphocytes, 4% monocytes. Sodium 139, potassium 4.7, chloride 112, bicarb 21, BUN 21, creatinine 1.89 down from 3.38, glucose 98, calcium 7. Bilirubin 0.5, AST 11, ALT 9. MEDICATIONS: Unasyn 1.5 grams I.V. every 12 hours started yesterday. CULTURES: Urine culture was positive for E. Coli. Blood cultures two sets were negative. IMAGING STUDIES: CT abdomen and pelvis done on 04/04/2020 showed stranding of the left ureter with a non-obstructing 7 mm calculus. The 04/05/2020 CT abdomen and pelvis showed progression of the previously noted 7 mm calculus with mild hydronephrosis and perinephric inflammation. PHYSICAL EXAMINATION: Temperature 97.2, pulse 73, respirations 16, blood pressure 144/71, O2 sat 95% on 1 liter nasal cannula. Abdomen soft, nontender. No hepatosplenomegaly. No CVA tenderness. IMPRESSION: 1. Pyelonephritis with septic shock that has resolved on I.V. Unasyn. 2. Left renal stone with hydronephrosis; status post ureteral stent placement done by Dr. Pitt on 04/06/2020. 3. Acute kidney injury on chronic kidney disease improving with drop in her creatinine to 1.89 from 3.5. PLAN: Discontinue I.V. Unasyn. Patient will be switched to Cephalexin 500 mg p.o. t.i.d. for a total of 10 days. MTDD
--- NOTE | 2020-04-11 14:09 | IPN ---
DATE: 04/08/2020 SUBJECTIVE: Patient was seen and examined at the bedside today morning. She is afebrile, hemodynamically stable. Her renal function continues to improve. Leukocytosis is also improving. Munoz catheter was removed yesterday. Triple- lumen catheter was also removed yesterday. Patient still has poor oral intake at this time. OBJECTIVE: Vital signs: Temperature is 97.7 degrees Fahrenheit, blood pressure 158/86, pulse is 77, respiratory rate of 22, saturating 95% on nasal cannula at 1 liter. Intake and output: Urine output recorded is 2.6 liters yesterday, 900 mL so far today since overnight. Weight in the bed scale is 73.4 kg. PHYSICAL EXAMINATION: GENERAL: Patient is awake, alert, oriented times two, lying in bed in no apparent distress.. HEAD AND NECK: Extraocular muscles intact. Pupils equally round and reactive to light. Mucous membranes are moist. Neck is supple. There is no jugular venous distention (JVD). CARDIOVASCULAR: S1, S2, regular rate. No edema of the bilateral lower extremities. RESPIRATORY: Chest is clear to auscultation bilaterally. Bilateral equal air entry. No rales or rhonchi. ABDOMEN: Soft. Positive bowel sounds. Nontender. No organomegaly. GENITOURINARY: Bladder is not palpable. Munoz catheter has been removed. MUSCULOSKELETAL: No clubbing or cyanosis. Pulses are 2+. CENTRAL NERVOUS SYSTEM: No focal deficit. Patient moves extremities and follows commands. LABORATORY REVIEW: CBC showed a WBC 10.6, hemoglobin 10.8, pulse are 217. BMP is still pending at this time. CURRENT INPATIENT MEDICATIONS: Patient's medications were all reviewed by myself. Her intravenous (IV) fluids were stopped yesterday. IV antibiotics have been stopped. He has been started on Keflex 500 mg by mouth every 8 hours. She was also started on Protonix 40 mg by mouth daily, amlodipine 5 mg by mouth daily. ASSESSMENT AND PLAN: 1. Acute renal failure. It was secondary to pyelonephritis and left-sided hydroureteronephrosis. Renal function is improving status post a left-sided ureteral stent placement. 2. Left-sided hydroureteronephrosis, status post left ureteral stent. Patient is clinically getting better. Munoz catheter was removed. Left-sided ureteroscopy and laser lithotripsy will be done in about 3-4 weeks as outpatient. 3. Hypertension. Blood pressures are going up. IV fluids were stopped yesterday. She has been started on amlodipine 5 mg by mouth daily now. Further escalation in the regimen will be done tomorrow. 4. Chronic gout secondary to chronic kidney disease. She is currently on allopurinol 100 mg by mouth daily. Further dose adjustment will be done once the renal function gets better. 5. Escherichia (E) coli pyelonephritis. Patient was initially on IV penicillin. Currently she is on oral Keflex. MTDD
--- NOTE | 2020-04-11 14:11 | IPN ---
DATE: 04/09/2020 SUBJECTIVE: Patient was seen and examined at the bedside today morning. She is afebrile and hemodynamically stable. Her renal function continues to improve. Leukocytosis is also improving. She continues to be on antibiotics. OBJECTIVE: VITAL SIGNS: Temperature 98.5 degrees Fahrenheit, blood pressure 145/78, pulse 76, respiratory rate 20, saturating 94% on nasal cannula. INTAKE AND OUTPUT: Urine output recorded as 1.3 liters yesterday, 200 mL so far today since overnight. Weight in the bed scale is 71.7 kg. PHYSICAL EXAMINATION: GENERAL: Patient is awake, alert, oriented times x2, lying in bed in no apparent distress.. HEAD AND NECK: Extraocular muscles intact. Pupils equally round and reactive to light. Mucous membranes are moist. Neck is supple. There is no JVD. CARDIOVASCULAR: S1, S2, regular rate. No edema of the bilateral lower extremities. RESPIRATORY: Chest is clear to auscultation bilaterally. Bilateral equal air entry. No rales or rhonchi. ABDOMEN: Soft. Positive bowel sounds. Nontender. No organomegaly. MUSCULOSKELETAL: No clubbing or cyanosis. Pulses are 2+. 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 Power is 5/5 in all extremities. LABORATORY REVIEW: CBC showed WBC 8.5, hemoglobin 9.1, platelets 258,000. BMP showed sodium 144, potassium 4.2, chloride 113, bicarb 24, BUN 14, creatinine 1.35; it was 1.46 yesterday, calcium 7.1. Albumin 2.1. IMAGING STUDIES: Abdominal x-ray was done yesterday, which did not show any acute pathology. CURRENT INPATIENT MEDICATIONS: Patient's medications were all reviewed by myself. No significant change in the medications today as compared with yesterday. ASSESSMENT AND PLAN: 1. Acute renal failure: It was secondary to left-sided hydroureteronephrosis and acute pyelonephritis. Renal function is improving. Creatinine continues to trend down. 2. Pyelonephritis secondary to E. Coli: Patient initially was I.V. antibiotics, which was changed to oral antibiotics and I see that the antibiotics have been stopped now. Infectious disease is already on board. 3. Hypertension: Blood pressure is controlled with Amlodipine 5 mg p.o. daily. 4. Chronic gout secondary to chronic kidney disease: Continue Allopurinol 100 mg p.o. daily. DISPOSITION: Patients renal function continues to improve. Nephrology service is going to sign off at this moment. She will need to follow-up with nephrology within two weeks after discharge from the hospital. Please call nephrology service for any help in the management of this patient during this hospitalization. MICHELL
--- NOTE | 2020-04-14 09:47 | RO ---
DATE OF OPERATION: 04/04/2020 PROCEDURE: Insertion of triple lumen central venous catheter. SITE: Right femoral vein. SURGEON: Dr. Rylan Hampton. PREOP DIAGNOSIS: Hypotension. POSTOP DIAGNOSIS: Hypotension. Procedure was performed emergently. PROCEDURE: After the patient was identified and appropriate time out was taken, the right femoral area was prepped and draped in usual sterile manner. The area was then anesthetized with 1% Xylocaine. Using large bore needle the right femoral vein was easily cannulated. Using modified Seldinger technique a triple lumen central venous catheter was easily advanced. Good venous return was obtained from all three ports. Each port was then flushed. Line was then sutured in place and sterile dressing applied. No immediate complications of the procedure identified. The patient tolerated the procedure well. MICHELL
--- NOTE | 2020-04-14 09:48 | RO ---
DATE OF OPERATION: 04/06/2020 PREOPERATIVE DIAGNOSIS: Left ureteral stone. POSTOPERATIVE DIAGNOSIS: Left ureteral stone. PROCEDURE: Cystoscopy, left retrograde pyelogram with intraoperative interpretation of images, left ureteral stent placement. SURGEON: Mikey Pitt MD NEWSROOM INTERN: None. ANESTHESIA: MAC. OPERATIVE INDICATIONS: This is an 79-year-old female who was admitted with sepsis due to urinary tract infection two days ago. Due to increasing left flank pain a CT scan was obtained yesterday and notable for an obstructing 7 mm proximal left ureteral stone. She was brought to the operating room today for the above procedure. DESCRIPTION OF PROCEDURE: The patient was brought to the operating room and MAC anesthesia was administered. Broad spectrum antibiotics had already been infused. She was then placed in the dorsal lithotomy position and prepped and draped in usual sterile fashion. A rigid cystoscope was inserted into the urethral meatus and advanced into the bladder. A guidewire was advanced into the left collecting system. I then advanced a 5-Albanian open-ended ureteral catheter over the guidewire, up the left collecting system. Once this was done I aspirated approximately 30-40 mL of cloudy urine from the left kidney. I then advanced the wire back up the left collecting system and removed the 5-Albanian open-ended ureteral catheter. I utilized the wire to advance a 7-Albanian x 22-32 cm JJ ureteral stent up the left collecting system. The wire was removed and there were adequate curls of the stent in the left renal pelvis and in the bladder. I inserted a new 16-Albanian Munoz catheter and filled the balloon with 10 mL of sterile water. The catheter was connected to gravity drainage and this marked the conclusion of the procedure. The patient was then taken from the dorsal lithotomy position, awakened from anesthesia and transported to recovery room in stable condition. ESTIMATED BLOOD LOSS: 5 mL. COMPLICATIONS: None. SPECIMENS: None. PLAN: The patient will continue her care in the ICU. If she improves will ultimately bring her back to the operating room in about one month or so for left ureteroscopy and laser lithotripsy to remove her stone. MICHELL
== END 2020-04-10 13:53 | DRG 853 ==
LOC: M ED 03:57 → M ED INP 08:20 → ENRESERV 09:29 → M ICU 11:15 → M PCU 04-06 18:12
PROVIDERS: ADMIT Family Medicine; ATTEND Family Medicine
PROC: 0T778DZ Dilation of Left Ureter with Intraluminal Device, Via Natural or Artificial Opening Endoscopic (ICD-10-PCS; principal; 2020-04-06 09:00)
DX: A41.9 Sepsis, unspecified organism (principal); R65.21 Severe sepsis with septic shock; N17.9 Acute kidney failure, unspecified; N20.1 Calculus of ureter; N13.6 Pyonephrosis; N39.0 Urinary tract infection, site not specified; N10 Acute pyelonephritis; K56.609 Unspecified intestinal obstruction, unspecified as to partial versus complete obstruction; E87.2 Acidosis; E87.0 Hyperosmolality and hypernatremia; E87.6 Hypokalemia; E11.9 Type 2 diabetes mellitus without complications; F02.80 Dementia in other diseases classified elsewhere, unspecified severity, without behavioral disturbance, psychotic disturbance, mood disturbance, and anxiety; N18.9 Chronic kidney disease, unspecified; R33.9 Retention of urine, unspecified; I12.9 Hypertensive chronic kidney disease with stage 1 through stage 4 chronic kidney disease, or unspecified chronic kidney disease; E86.0 Dehydration; B96.29 Other Escherichia coli [E. coli] as the cause of diseases classified elsewhere; Z79.899 Other long term (current) drug therapy; Z88.2 Allergy status to sulfonamides; Z88.5 Allergy status to narcotic agent; Z88.8 Allergy status to other drugs, medicaments and biological substances; M10.30 Gout due to renal impairment, unspecified site; G30.9 Alzheimer's disease, unspecified; E78.5 Hyperlipidemia, unspecified

== ENCOUNTER → 2020-04-14 | Outpatient (REF) ==
[~2020-04-14] MED LIST changes: +ACET1TAB55 PO; +AZEL0.05 OU; +BISA10SU PR; +CEPH500C PO; +ENEMENE PR; +GABA-845 PO; +JANU25TA PO; +MILKSUS3 PO; +PRESCAP PO; +REME15TA PO; +SERT50TA29 PO
[2020-04-14 14:36] LABS: BASO # 0.1 10^3/uL (0.0-0.2); BASO % 0.7 % (0.0-1.0); EOS # 0.1 10^3/uL (0.0-0.5); EOS % 1.1 % (0.0-3.0); HEMATOCRIT 34.9 % (36.0-47.0); HEMOGLOBIN 11.5 g/dl (12.0-15.5); LYMPH % 11.3 % (24.0-44.0); MEAN CORPUSCULAR VOLUME 97.2 fl (80.0-96.0); MONO # 0.5 10^3/uL (0.0-0.8); MONO % 5.8 % (0.0-5.0); NEUTROPHILS # 7.4 10^3/uL (1.5-8.5); NEUTROPHILS % 80.7 % (36.0-66.0); PLATELET COUNT, AUTOMATED 539 10^3/uL (150-450); RED BLOOD COUNT 3.59 10^6/uL (4.00-5.40); WHITE BLOOD COUNT 9.1 10^3/uL (4.0-10.0)
[2020-04-14 15:10] LABS: ALBUMIN 2.8 GM/DL (3.2-5.2); CALCIUM LEVEL 8.8 MG/DL (8.8-10.2); CREATININE FOR GFR 1.26 MG/DL (0.55-1.30); GLOMERULAR FILTRATION RATE 43.5 (>32); PHOSPHORUS LEVEL 3.7 MG/DL (2.5-4.9); POTASSIUM SERUM 4.4 MEQ/L (3.5-5.1); THYROID STIMULATING HORMONE 1.27 uIU/ML (0.358-3.740); URIC ACID 5.4 MG/DL (2.6-6.0)
[2020-04-14 15:16] LABS: PTH INTACT 76.9 PG/ML (18.5-88.0)
== END ==
PROVIDERS: ATTEND Internal Medicine
DX: I10 Essential (primary) hypertension (principal)

== ENCOUNTER → 2020-04-15 | Outpatient (REF) ==
[2020-04-15 14:34] LABS: APPEARANCE, URINE CLOUDY (CLEAR); BACTERIA, URINE AUTO 1+ (NEGATIVE); BILIRUBIN, URINE AUTO NEGATIVE (NEGATIVE); BLOOD, URINE BLOOD 3+ (NEGATIVE); COLOR, URINE YELLOW (YELLOW); GLUCOSE, URINE (UA) AUTO NEGATIVE (NEGATIVE); KETONE, URINE AUTO NEGATIVE (NEGATIVE); LEUKOCYTE ESTERASE, URINE AUTO 2+ (NEGATIVE); MUCUS, URINE SMALL (NEGATIVE); NITRITE, URINE AUTO NEGATIVE (NEGATIVE); PROTEIN, URINE AUTO 2+ mg/dL (NEGATIVE); RBC, URINE AUTO 160 /HPF (0-3); SPECIFIC GRAVITY URINE AUTO 1.013 (1.002-1.035); SQUAMOUS EPITHELIAL CELL UR AU 0 /HPF (0-6); UROBILINOGEN, URINE AUTO 0.2 mg/dL (0.0-2.0); WBC, URINE AUTO 33 /HPF (0-3)
--- NOTE | 2020-04-21 11:08 | REPPI ---
SINGLE VIEW ABDOMEN HISTORY: Pain. TECHNIQUE: Single AP view of the abdomen and pelvis is performed and compared to prior study of 04/08/2020. FINDINGS: There is no evidence of bowel obstruction. No dilated bowel loops are visualized. Several subcentimeter calcifications are again seen in the right mid abdomen unchanged. Phleboliths are seen in the pelvis unchanged. Metallic marivel overlie the upper abdomen as seen on prior study. The left ureteral stent is unchanged in position. There are mild degenerative changes of the spine. IMPRESSION: No acute findings. MTDD
== END ==
PROVIDERS: ATTEND Internal Medicine
DX: R10.9 Unspecified abdominal pain (principal)

== ENCOUNTER → 2020-04-22 | Outpatient (REF) | PROVIDERS: ATTEND Internal Medicine | DX: I10 Essential (primary) hypertension (principal) ==

== ENCOUNTER → 2020-04-29 | Outpatient (REF) ==
[2020-04-29 11:50] LABS: HEMATOCRIT 32.2 % (36.0-47.0); HEMOGLOBIN 10.5 g/dl (12.0-15.5); MEAN CORPUSCULAR HEMOGLOBIN 31.5 pg (27.0-33.0); MEAN CORPUSCULAR HGB CONC 32.6 g/dl (32.0-36.5); MEAN CORPUSCULAR VOLUME 96.7 fl (80.0-96.0); PLATELET COUNT, AUTOMATED 264 10^3/uL (150-450); RED BLOOD COUNT 3.33 10^6/uL (4.00-5.40); WHITE BLOOD COUNT 7.2 10^3/uL (4.0-10.0)
[2020-04-29 12:12] LABS: CALCIUM LEVEL 9.2 MG/DL (8.8-10.2); CREATININE FOR GFR 1.71 MG/DL (0.55-1.30); GLOMERULAR FILTRATION RATE 30.6 (>32); POTASSIUM SERUM 4.6 MEQ/L (3.5-5.1)
== END ==
PROVIDERS: ATTEND Internal Medicine
DX: I10 Essential (primary) hypertension (principal)

== ENCOUNTER → 2020-05-03 | Outpatient (REF) | payer MEDICARE, OTHER ==
[2020-05-03 12:38] LABS: APPEARANCE, URINE CLOUDY (CLEAR); BACTERIA, URINE AUTO 3+ (NEGATIVE); BILIRUBIN, URINE AUTO NEGATIVE (NEGATIVE); BLOOD, URINE BLOOD 3+ (NEGATIVE); COLOR, URINE YELLOW (YELLOW); GLUCOSE, URINE (UA) AUTO NEGATIVE (NEGATIVE); KETONE, URINE AUTO NEGATIVE (NEGATIVE); LEUKOCYTE ESTERASE, URINE AUTO 3+ (NEGATIVE); MUCUS, URINE SMALL (NEGATIVE); NITRITE, URINE AUTO POSITIVE (NEGATIVE); PROTEIN, URINE AUTO 1+ mg/dL (NEGATIVE); RBC, URINE AUTO 31 /HPF (0-3); SPECIFIC GRAVITY URINE AUTO 1.005 (1.002-1.035); SQUAMOUS EPITHELIAL CELL UR AU 0 /HPF (0-6); UROBILINOGEN, URINE AUTO 0.2 mg/dL (0.0-2.0); WBC, URINE AUTO TNTC /HPF (0-3)
== END ==
PROVIDERS: ATTEND Internal Medicine
DX: R82.90 Unspecified abnormal findings in urine (principal)

== ENCOUNTER → 2020-05-06 | Outpatient (REF) | payer MEDICARE, OTHER ==
[2020-05-06 10:27] LABS: HEMATOCRIT 32.6 % (36.0-47.0); HEMOGLOBIN 10.8 g/dl (12.0-15.5); MEAN CORPUSCULAR HEMOGLOBIN 31.3 pg (27.0-33.0); MEAN CORPUSCULAR HGB CONC 33.1 g/dl (32.0-36.5); MEAN CORPUSCULAR VOLUME 94.5 fl (80.0-96.0); PLATELET COUNT, AUTOMATED 237 10^3/uL (150-450); RED BLOOD COUNT 3.45 10^6/uL (4.00-5.40); WHITE BLOOD COUNT 8.1 10^3/uL (4.0-10.0)
[2020-05-06 10:47] LABS: CALCIUM LEVEL 9.1 MG/DL (8.8-10.2); CREATININE FOR GFR 1.59 MG/DL (0.55-1.30); GLOMERULAR FILTRATION RATE 33.3 (>32); POTASSIUM SERUM 4.1 MEQ/L (3.5-5.1)
== END ==
PROVIDERS: ATTEND Internal Medicine
DX: I10 Essential (primary) hypertension (principal)

== ENCOUNTER → 2020-05-22 | Outpatient (REF) | PROVIDERS: ATTEND Internal Medicine | DX: Z20.828 Contact with and (suspected) exposure to other viral communicable diseases (principal) ==

== ENCOUNTER → 2020-05-29 | Outpatient (REF) | payer MEDICARE, OTHER ==
[~2020-05-29] MED LIST changes: +CYAN500T14 PO; -CYAN500T8 PO; +ISOS1TAB36 PO; -ISOS60TA2 PO; +MIRT-62 PO; -REME15TA PO
== END ==
LOC: EDSTATUS 07-08 16:21
PROVIDERS: ATTEND Internal Medicine
DX: Z20.828 Contact with and (suspected) exposure to other viral communicable diseases (principal)

== ENCOUNTER → 2020-06-04 | Outpatient (REF) | payer MEDICARE, OTHER | PROVIDERS: ATTEND Internal Medicine | DX: Z20.828 Contact with and (suspected) exposure to other viral communicable diseases (principal) ==

== ENCOUNTER → 2020-06-09 | Outpatient (REF) | payer MEDICARE, OTHER ==
[~2020-06-09] MED LIST changes: -ISOS1TAB36 PO; +ISOS60TA2 PO
[2020-06-09 09:15] LABS: HEMATOCRIT 31.1 % (36.0-47.0); HEMOGLOBIN 10.3 g/dl (12.0-15.5); MEAN CORPUSCULAR HEMOGLOBIN 31.1 pg (27.0-33.0); MEAN CORPUSCULAR HGB CONC 33.1 g/dl (32.0-36.5); PLATELET COUNT, AUTOMATED 270 10^3/uL (150-450); RED BLOOD COUNT 3.31 10^6/uL (4.00-5.40); WHITE BLOOD COUNT 7.1 10^3/uL (4.0-10.0)
[2020-06-09 09:46] LABS: CALCIUM LEVEL 8.9 MG/DL (8.8-10.2); CREATININE FOR GFR 2.08 MG/DL (0.55-1.30); GLOMERULAR FILTRATION RATE 24.4 (>32); POTASSIUM SERUM 3.6 MEQ/L (3.5-5.1)
== END ==
PROVIDERS: ATTEND Internal Medicine
DX: I10 Essential (primary) hypertension (principal)

== ENCOUNTER → 2020-06-14 | Outpatient (REF) | payer MEDICARE, OTHER ==
[2020-06-15 06:22] LABS: APPEARANCE, URINE CLOUDY (CLEAR); BACTERIA, URINE AUTO 2+ (NEGATIVE); BILIRUBIN, URINE AUTO NEGATIVE (NEGATIVE); BLOOD, URINE BLOOD 3+ (NEGATIVE); COLOR, URINE YELLOW (YELLOW); GLUCOSE, URINE (UA) AUTO NEGATIVE (NEGATIVE); KETONE, URINE AUTO NEGATIVE (NEGATIVE); LEUKOCYTE ESTERASE, URINE AUTO 3+ (NEGATIVE); NITRITE, URINE AUTO POSITIVE (NEGATIVE); PROTEIN, URINE AUTO 1+ mg/dL (NEGATIVE); RBC, URINE AUTO 21 /HPF (0-3); SPECIFIC GRAVITY URINE AUTO 1.011 (1.002-1.035); SQUAMOUS EPITHELIAL CELL UR AU 0 /HPF (0-6); UROBILINOGEN, URINE AUTO 0.2 mg/dL (0.0-2.0); WBC, URINE AUTO 169 /HPF (0-3)
== END ==
PROVIDERS: ATTEND Internal Medicine
DX: R30.9 Painful micturition, unspecified (principal); M54.5 Low back pain

== ENCOUNTER → 2020-06-17 | Outpatient (REF) | payer MEDICARE, OTHER ==
[2020-06-17 11:19] LABS: HEMATOCRIT 30.7 % (36.0-47.0); MEAN CORPUSCULAR HEMOGLOBIN 31.1 pg (27.0-33.0); MEAN CORPUSCULAR HGB CONC 32.6 g/dl (32.0-36.5); MEAN CORPUSCULAR VOLUME 95.3 fl (80.0-96.0); PLATELET COUNT, AUTOMATED 259 10^3/uL (150-450); RED BLOOD COUNT 3.22 10^6/uL (4.00-5.40); WHITE BLOOD COUNT 8.5 10^3/uL (4.0-10.0)
[2020-06-17 11:42] LABS: CALCIUM LEVEL 8.9 MG/DL (8.8-10.2); CREATININE FOR GFR 1.92 MG/DL (0.55-1.30); GLOMERULAR FILTRATION RATE 26.8 (>32); POTASSIUM SERUM 3.8 MEQ/L (3.5-5.1)
== END ==
PROVIDERS: ATTEND Internal Medicine
DX: N18.9 Chronic kidney disease, unspecified (principal)

== ENCOUNTER → 2020-06-22 | Outpatient (REF) | payer MEDICARE, OTHER | PROVIDERS: ATTEND Internal Medicine | DX: Z20.828 Contact with and (suspected) exposure to other viral communicable diseases (principal) ==

== ENCOUNTER → 2020-06-26 | Outpatient (REF) | payer MEDICARE, OTHER | PROVIDERS: ATTEND Internal Medicine | DX: Z20.828 Contact with and (suspected) exposure to other viral communicable diseases (principal) ==

== ENCOUNTER → 2020-06-30 | Outpatient (REF) | payer MEDICARE, OTHER ==
[2020-06-30 12:00] LABS: RSV AMPLIFICATION NEGATIVE (NEGATIVE)
== END ==
PROVIDERS: ATTEND Internal Medicine
DX: Z20.828 Contact with and (suspected) exposure to other viral communicable diseases (principal)

== ENCOUNTER → 2020-07-02 | Outpatient (REF) | payer MEDICARE, OTHER | PROVIDERS: ATTEND Internal Medicine | DX: Z20.828 Contact with and (suspected) exposure to other viral communicable diseases (principal) ==

== ENCOUNTER → 2020-07-03 | Outpatient (REF) | payer MEDICARE, OTHER | PROVIDERS: ATTEND Internal Medicine | DX: Z20.828 Contact with and (suspected) exposure to other viral communicable diseases (principal) ==

== ENCOUNTER → 2020-07-24 | Outpatient (REF) | payer MEDICARE, OTHER ==
[~2020-07-24] MED LIST changes: +ISOS1TAB36 PO; -ISOS60TA2 PO
[2020-07-24 14:03] LABS: HEMATOCRIT 31.1 % (36.0-47.0); HEMOGLOBIN 10.3 g/dl (12.0-15.5); MEAN CORPUSCULAR HEMOGLOBIN 30.6 pg (27.0-33.0); MEAN CORPUSCULAR HGB CONC 33.1 g/dl (32.0-36.5); MEAN CORPUSCULAR VOLUME 92.3 fl (80.0-96.0); PLATELET COUNT, AUTOMATED 259 10^3/uL (150-450); RED BLOOD COUNT 3.37 10^6/uL (4.00-5.40); WHITE BLOOD COUNT 7.7 10^3/uL (4.0-10.0)
[2020-07-24 14:45] LABS: CALCIUM LEVEL 9.2 MG/DL (8.8-10.2); CREATININE FOR GFR 1.67 MG/DL (0.55-1.30); GLOMERULAR FILTRATION RATE 31.4 (>32); POTASSIUM SERUM 4.9 MEQ/L (3.5-5.1)
== END ==
PROVIDERS: ATTEND Physician Assistant
DX: I10 Essential (primary) hypertension (principal)

== ENCOUNTER → 2020-07-24 | Outpatient (REF) | PROVIDERS: ATTEND Internal Medicine | DX: I10 Essential (primary) hypertension (principal) ==

== ENCOUNTER → 2020-07-30 | Outpatient (REF) | payer MEDICARE, OTHER ==
[~2020-07-30] MED LIST changes: -ISOS1TAB36 PO; +ISOS60TA2 PO
== END ==
PROVIDERS: ATTEND Internal Medicine
DX: Z20.822 Contact with and (suspected) exposure to COVID-19 (principal)

== ENCOUNTER → 2020-08-09 | Outpatient (REF) | payer MEDICARE, OTHER | PROVIDERS: ATTEND Physician Assistant | DX: R30.0 Dysuria (principal) ==

== ENCOUNTER → 2020-08-09 | Outpatient (REF) | payer MEDICARE, OTHER ==
[2020-08-09 14:01] LABS: APPEARANCE, URINE TURBID (CLEAR); BACTERIA, URINE AUTO 2+ (NEGATIVE); BILIRUBIN, URINE AUTO NEGATIVE (NEGATIVE); BLOOD, URINE BLOOD 2+ (NEGATIVE); COLOR, URINE YELLOW (YELLOW); GLUCOSE, URINE (UA) AUTO NEGATIVE (NEGATIVE); KETONE, URINE AUTO NEGATIVE (NEGATIVE); LEUKOCYTE ESTERASE, URINE AUTO 3+ (NEGATIVE); MUCUS, URINE SMALL (NEGATIVE); NITRITE, URINE AUTO NEGATIVE (NEGATIVE); PROTEIN, URINE AUTO 1+ mg/dL (NEGATIVE); RBC, URINE AUTO 28 /HPF (0-3); SPECIFIC GRAVITY URINE AUTO 1.009 (1.002-1.035); SQUAMOUS EPITHELIAL CELL UR AU 1 /HPF (0-6); UROBILINOGEN, URINE AUTO 0.2 mg/dL (0.0-2.0); WBC, URINE AUTO TNTC /HPF (0-3)
== END ==
PROVIDERS: ATTEND Physician Assistant
DX: N39.0 Urinary tract infection, site not specified (principal)

== ENCOUNTER → 2020-08-11 | Outpatient (REF) | payer MEDICARE, OTHER ==
[2020-08-11 08:55] LABS: BASO # 0.1 10^3/uL (0.0-0.2); BASO % 0.7 % (0.0-1.0); EOS # 0.4 10^3/uL (0.0-0.5); HEMATOCRIT 32.4 % (36.0-47.0); HEMOGLOBIN 10.7 g/dl (12.0-15.5); LYMPH # 2.3 10^3/uL (1.5-5.0); LYMPH % 29.5 % (24.0-44.0); MEAN CORPUSCULAR HEMOGLOBIN 30.8 pg (27.0-33.0); MEAN CORPUSCULAR VOLUME 93.4 fl (80.0-96.0); MONO # 0.8 10^3/uL (0.0-0.8); MONO % 10.2 % (0.0-5.0); NEUTROPHILS # 4.1 10^3/uL (1.5-8.5); NEUTROPHILS % 54.1 % (36.0-66.0); RED BLOOD COUNT 3.47 10^6/uL (4.00-5.40); WHITE BLOOD COUNT 7.6 10^3/uL (4.0-10.0)
[2020-08-11 09:19] LABS: PLATELET COUNT, AUTOMATED 220 10^3/uL (150-450)
[2020-08-11 09:22] LABS: ALBUMIN 3.1 GM/DL (3.2-5.2); CALCIUM LEVEL 8.8 MG/DL (8.8-10.2); CREATININE FOR GFR 1.83 MG/DL (0.55-1.30); GLOMERULAR FILTRATION RATE 28.2 (>32); PHOSPHORUS LEVEL 3.8 MG/DL (2.5-4.9); POTASSIUM SERUM 4.2 MEQ/L (3.5-5.1); URIC ACID 7.4 MG/DL (2.6-6.0)
== END ==
PROVIDERS: ATTEND Internal Medicine
DX: N18.9 Chronic kidney disease, unspecified (principal)

== ENCOUNTER → 2020-08-13 | Outpatient (REF) | payer MEDICARE, OTHER ==
[2020-08-13 11:55] LABS: BASO % 0.6 % (0.0-1.0); EOS # 0.4 10^3/uL (0.0-0.5); EOS % 5.3 % (0.0-3.0); HEMOGLOBIN 9.6 g/dl (12.0-15.5); LYMPH # 1.5 10^3/uL (1.5-5.0); MEAN CORPUSCULAR HEMOGLOBIN 30.1 pg (27.0-33.0); MONO # 0.8 10^3/uL (0.0-0.8); MONO % 11.3 % (0.0-5.0); NEUTROPHILS % 59.3 % (36.0-66.0); PLATELET COUNT, AUTOMATED 246 10^3/uL (150-450); RED BLOOD COUNT 3.19 10^6/uL (4.00-5.40); WHITE BLOOD COUNT 6.7 10^3/uL (4.0-10.0)
[2020-08-13 12:22] LABS: CALCIUM LEVEL 8.9 MG/DL (8.8-10.2); CREATININE FOR GFR 1.88 MG/DL (0.55-1.30); GLOMERULAR FILTRATION RATE 27.3 (>32); POTASSIUM SERUM 4.1 MEQ/L (3.5-5.1)
== END ==
PROVIDERS: ATTEND Internal Medicine
DX: N17.9 Acute kidney failure, unspecified (principal)

== ENCOUNTER → 2020-08-15 | Outpatient (REF) | payer MEDICARE, OTHER ==
[~2020-08-15] MED LIST changes: +ISOS1TAB36 PO; -ISOS60TA2 PO
== END ==
PROVIDERS: ATTEND Internal Medicine
DX: R19.7 Diarrhea, unspecified (principal)

== ENCOUNTER → 2020-08-20 | Outpatient (REF) | payer MEDICARE, OTHER ==
[2020-08-20 09:40] LABS: BASO # 0.1 10^3/uL (0.0-0.2); BASO % 0.7 % (0.0-1.0); EOS # 0.4 10^3/uL (0.0-0.5); EOS % 4.9 % (0.0-3.0); HEMATOCRIT 30.4 % (36.0-47.0); HEMOGLOBIN 9.8 g/dl (12.0-15.5); LYMPH # 2.3 10^3/uL (1.5-5.0); LYMPH % 27.3 % (24.0-44.0); MEAN CORPUSCULAR HEMOGLOBIN 30.7 pg (27.0-33.0); MEAN CORPUSCULAR HGB CONC 32.2 g/dl (32.0-36.5); MEAN CORPUSCULAR VOLUME 95.3 fl (80.0-96.0); MONO # 0.9 10^3/uL (0.0-0.8); MONO % 10.2 % (0.0-5.0); NEUTROPHILS # 4.8 10^3/uL (1.5-8.5); NEUTROPHILS % 56.4 % (36.0-66.0); PLATELET COUNT, AUTOMATED 224 10^3/uL (150-450); RED BLOOD COUNT 3.19 10^6/uL (4.00-5.40); WHITE BLOOD COUNT 8.5 10^3/uL (4.0-10.0)
[2020-08-20 10:06] LABS: APPEARANCE, URINE CLOUDY (CLEAR); BACTERIA, URINE AUTO 2+ (NEGATIVE); BILIRUBIN, URINE AUTO NEGATIVE (NEGATIVE); BLOOD, URINE BLOOD 2+ (NEGATIVE); COLOR, URINE YELLOW (YELLOW); GLUCOSE, URINE (UA) AUTO NEGATIVE (NEGATIVE); KETONE, URINE AUTO NEGATIVE (NEGATIVE); LEUKOCYTE ESTERASE, URINE AUTO 3+ (NEGATIVE); NITRITE, URINE AUTO POSITIVE (NEGATIVE); PROTEIN, URINE AUTO 2+ mg/dL (NEGATIVE); RBC, URINE AUTO 45 /HPF (0-3); SPECIFIC GRAVITY URINE AUTO 1.011 (1.002-1.035); SQUAMOUS EPITHELIAL CELL UR AU 0 /HPF (0-6); UROBILINOGEN, URINE AUTO 0.2 mg/dL (0.0-2.0); WBC, URINE AUTO TNTC /HPF (0-3)
[2020-08-20 10:34] LABS: ALBUMIN 3.2 GM/DL (3.2-5.2); CREATININE FOR GFR 1.92 MG/DL (0.55-1.30); GLOMERULAR FILTRATION RATE 26.7 (>32); PERCENT SATURATION 21.4 % (13.2-45.0); PHOSPHORUS LEVEL 3.8 MG/DL (2.5-4.9); POTASSIUM SERUM 4.6 MEQ/L (3.5-5.1); URIC ACID 7.4 MG/DL (2.6-6.0)
== END ==
PROVIDERS: ATTEND Internal Medicine
DX: N28.9 Disorder of kidney and ureter, unspecified (principal)

== ENCOUNTER → 2020-09-03 | Outpatient (CLI) | payer MEDICARE, OTHER ==
--- NOTE | 2020-09-03 12:12 | REP ---
INDICATION: ACUTE KIDNEY FAILURE, UNSPECIFIED. COMPARISON: 11/10/2017. TECHNIQUE: Real-time sonographic evaluation of the kidneys is performed. FINDINGS: Renal cortical echogenicity pattern is normal bilaterally and contours are smooth. There is no right hydronephrosis. There is moderate left hydronephrosis. A left ureteral stent is seen with the proximal end coiled in the region of the left renal pelvis and the distal end in the urinary bladder. Two cysts are seen in the upper right kidney measuring 1.2 x 1.1 x 0.8 cm and 1.5 x 1.7 x 2.1 cm. A cyst in the mid left kidney medially measures 1.7 x 1.5 x 1.8 cm. A cyst in the lower left kidney measures 2.5 x 2.2 x 2.3 cm. The right kidney measures 9.9 x 3.9 x 4.6 cm. Left renal dimensions are 9.6 x 4.5 x 4.3 cm. The urinary bladder is unremarkable. Ureteral jets could not be seen with Doppler color evaluation. IMPRESSION: Moderate left hydronephrosis. Left ureteral stent noted and appears to be in good position. Bilateral renal cysts. <Electronically signed by Alexandro Webber > 09/03/20 [id number]
== END ==
LOC: M RAD 10:58
PROVIDERS: ATTEND Internal Medicine Nephrology
DX: N17.9 Acute kidney failure, unspecified (principal); R82.71 Bacteriuria; I12.9 Hypertensive chronic kidney disease with stage 1 through stage 4 chronic kidney disease, or unspecified chronic kidney disease; N28.1 Cyst of kidney, acquired; Z96.0 Presence of urogenital implants

== ENCOUNTER → 2020-09-15 | Outpatient (REF) | payer MEDICARE, OTHER ==
--- NOTE | 2020-09-15 16:13 | REPPI ---
INDICATION: NEPHROLITHIASIS 456-1 COMPARISON: 04/15/2020 TECHNIQUE: Supine view of the abdomen and pelvis. FINDINGS: Left ureteral stent in satisfactory position. No obvious left renal calculi identified. No obvious right renal calcifications are appreciated. Rounded calcifications measuring up to 3 mm overlying the mid/distal right psoas muscle correspond to phleboliths and confirmed by prior CT dated 04/05/2020. Anterior abdominal wall surgical marivel along with suture material in the right mid abdomen again identified. Bowel gas pattern is nonspecific. Skeletal structures demonstrate age-related changes. IMPRESSION: No definite urinary tract calcifications appreciated. Chronic findings as noted above. <Electronically signed by Stanley Snyder > 09/15/20 [id number]
== END ==
PROVIDERS: ATTEND Internal Medicine
DX: N20.0 Calculus of kidney (principal)

== ENCOUNTER → 2020-09-24 | Outpatient (REF) ==
[2020-09-24 10:19] LABS: BASO % 0.6 % (0.0-1.0); EOS # 0.4 10^3/uL (0.0-0.5); EOS % 5.8 % (0.0-3.0); HEMATOCRIT 34.5 % (36.0-47.0); HEMOGLOBIN 11.4 g/dl (12.0-15.5); LYMPH # 1.8 10^3/uL (1.5-5.0); LYMPH % 27.6 % (24.0-44.0); MEAN CORPUSCULAR HEMOGLOBIN 30.5 pg (27.0-33.0); MEAN CORPUSCULAR VOLUME 92.2 fl (80.0-96.0); MONO # 0.7 10^3/uL (0.0-0.8); MONO % 10.4 % (2.0-8.0); NEUTROPHILS # 3.6 10^3/uL (1.5-8.5); NEUTROPHILS % 55.3 % (36.0-66.0); PLATELET COUNT, AUTOMATED 246 10^3/uL (150-450); RED BLOOD COUNT 3.74 10^6/uL (4.00-5.40); WHITE BLOOD COUNT 6.6 10^3/uL (4.0-10.0)
[2020-09-24 10:50] LABS: PERCENT SATURATION 22.7 % (13.2-45.0)
[2020-09-24 11:03] LABS: ALBUMIN 3.3 GM/DL (3.2-5.2); CALCIUM LEVEL 9.3 MG/DL (8.8-10.2); CREATININE FOR GFR 1.64 MG/DL (0.55-1.30); PHOSPHORUS LEVEL 3.2 MG/DL (2.5-4.9); POTASSIUM SERUM 4.7 MEQ/L (3.5-5.1); URIC ACID 8.2 MG/DL (2.6-6.0)
[2020-09-24 11:30] LABS: APPEARANCE, URINE TURBID (CLEAR); BACTERIA, URINE AUTO 3+ (NEGATIVE); BILIRUBIN, URINE AUTO NEGATIVE (NEGATIVE); BLOOD, URINE BLOOD 3+ (NEGATIVE); COLOR, URINE YELLOW (YELLOW); GLUCOSE, URINE (UA) AUTO NEGATIVE (NEGATIVE); KETONE, URINE AUTO NEGATIVE (NEGATIVE); LEUKOCYTE ESTERASE, URINE AUTO 3+ (NEGATIVE); NITRITE, URINE AUTO NEGATIVE (NEGATIVE); PROTEIN, URINE AUTO 2+ mg/dL (NEGATIVE); RBC, URINE AUTO TNTC /HPF (0-3); SPECIFIC GRAVITY URINE AUTO 1.012 (1.002-1.035); SQUAMOUS EPITHELIAL CELL UR AU 0 /HPF (0-6); TRANSITIONAL EPITHELIAL AUTO 3 /HPF; UROBILINOGEN, URINE AUTO 0.2 mg/dL (0.0-2.0); WBC, URINE AUTO TNTC /HPF (0-3)
== END ==
PROVIDERS: ATTEND Internal Medicine
DX: N18.9 Chronic kidney disease, unspecified (principal)

== ENCOUNTER → 2020-10-15 | Outpatient (REF) | payer MEDICARE, OTHER ==
[2020-10-15 10:36] LABS: THYROID STIMULATING HORMONE 0.836 uIU/ML (0.358-3.740); URIC ACID 7.8 MG/DL (2.6-6.0)
== END ==
PROVIDERS: ATTEND Physician Assistant
DX: N17.9 Acute kidney failure, unspecified (principal); Z79.899 Other long term (current) drug therapy

== ENCOUNTER → 2020-10-17 | Outpatient (REF) | payer MEDICARE, OTHER ==
[2020-10-17 15:13] LABS: INFLUENZA A AMPLIFICATION NEGATIVE (NEGATIVE); INFLUENZA B AMPLIFICATION NEGATIVE (NEGATIVE)
== END ==
PROVIDERS: ATTEND Internal Medicine
DX: Z11.52 Encounter for screening for COVID-19 (principal)

== ENCOUNTER → 2020-11-11 | Outpatient (CLI) | payer MEDICARE, OTHER ==
--- NOTE | 2020-11-11 14:40 | REP ---
INDICATION: MEDICAL CLEAENCE- EKG FIRST COMPARISON: 04/04/2020 TECHNIQUE: PA and lateral. FINDINGS: The mediastinum and cardiac silhouette are normal. The lung ny are clear and without acute consolidation, effusion, or pneumothorax. The skeletal structures are intact and normal. IMPRESSION: No acute cardiopulmonary process. <Electronically signed by Stanley Snyder > 11/11/20 [id number]
--- NOTE | 2020-11-12 08:09 | ECGEPIP ---
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 left axis deviation Low limb voltages with persistent S waves V5 and V6; body habitus versus p pulmonary disease Slightly different precordial lead placement but no significant change from 0 04/04/20. Electronically Signed on 11-12-2020 8:09:30 EDT by Neel Mendoza
== END ==
LOC: M RAD 13:59
PROVIDERS: ATTEND Internal Medicine
DX: Z01.818 Encounter for other preprocedural examination (principal)

== ENCOUNTER → 2020-11-12 | Outpatient (REF) | payer MEDICARE, OTHER ==
[~2020-11-12] MED LIST changes: +GABA-283 PO; -GABA-845 PO
[2020-11-12 10:07] LABS: HEMOGLOBIN 11.2 g/dl (12.0-15.5); MEAN CORPUSCULAR HEMOGLOBIN 29.6 pg (27.0-33.0); MEAN CORPUSCULAR HGB CONC 32.9 g/dl (32.0-36.5); MEAN CORPUSCULAR VOLUME 89.9 fl (80.0-96.0); PLATELET COUNT, AUTOMATED 247 10^3/uL (150-450); RED BLOOD COUNT 3.78 10^6/uL (4.00-5.40); WHITE BLOOD COUNT 7.3 10^3/uL (4.0-10.0)
[2020-11-12 10:19] LABS: INR 1.03; PROTHROMBIN TIME 13.7 SECONDS (12.5-14.3)
[2020-11-12 10:30] LABS: CALCIUM LEVEL 9.1 MG/DL (8.8-10.2); CREATININE FOR GFR 1.8 MG/DL (0.55-1.30); GLOMERULAR FILTRATION RATE 28.7 (>32); POTASSIUM SERUM 4.3 MEQ/L (3.5-5.1)
[2020-11-12 13:42] LABS: APPEARANCE, URINE TURBID (CLEAR); BACTERIA, URINE AUTO 2+ (NEGATIVE); BILIRUBIN, URINE AUTO NEGATIVE (NEGATIVE); BLOOD, URINE BLOOD 2+ (NEGATIVE); COLOR, URINE YELLOW (YELLOW); GLUCOSE, URINE (UA) AUTO NEGATIVE (NEGATIVE); KETONE, URINE AUTO NEGATIVE (NEGATIVE); LEUKOCYTE ESTERASE, URINE AUTO 3+ (NEGATIVE); MUCUS, URINE SMALL (NEGATIVE); NITRITE, URINE AUTO NEGATIVE (NEGATIVE); PROTEIN, URINE AUTO 2+ mg/dL (NEGATIVE); RBC, URINE AUTO 10 /HPF (0-3); SPECIFIC GRAVITY URINE AUTO 1.009 (1.002-1.035); SQUAMOUS EPITHELIAL CELL UR AU 1 /HPF (0-6); UROBILINOGEN, URINE AUTO 0.2 mg/dL (0.0-2.0); WBC, URINE AUTO TNTC /HPF (0-3)
== END ==
PROVIDERS: ATTEND Internal Medicine
DX: Z01.818 Encounter for other preprocedural examination (principal); Z79.899 Other long term (current) drug therapy

== ENCOUNTER → 2020-11-18 | Outpatient (REF) | payer MEDICARE, OTHER | PROVIDERS: ATTEND Internal Medicine | DX: Z20.822 Contact with and (suspected) exposure to COVID-19 (principal) ==

== ENCOUNTER → 2020-11-20 | Outpatient (CLI) | payer MEDICARE, OTHER ==
--- NOTE | 2020-11-20 11:34 | ECGEPIP ---
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 Overall no significant change compared with 11/11/2020. Electronically Signed on 11-20-2020 11:34:17 EDT by Alen Venegas
== END ==
LOC: M EKG 09:24
PROVIDERS: ATTEND Physician Assistant
DX: Z01.818 Encounter for other preprocedural examination (principal)

== ENCOUNTER 2020-11-21 10:36 | Day surgery (SDC) | payer MEDICARE, OTHER ==
--- NOTE | 2020-11-18 14:11 | CR ---
CONSULTATION DATE: 11/12/2020 REASON FOR CONSULTATION: The patient was last seen on 10/01/2020. At that time, I knew that she had nephrolithiasis on the left side and she was seeing urology regularly. She was going to be scheduled for a stent placement for the nephrolithiasis and now, she is being seen for preoperative clearance on 11/12/2020. She is going to have the procedure performed on 11/21/2020, by [facility]. HISTORY OF PRESENT ILLNESS: This patient is 80 years of age. She has nephrolithiasis on the left with hydronephrosis and will have a stent placement and removal of a stone on 11/21/2020. The patient did have an EKG already as preoperative clearance. She was found to have a normal sinus rhythm with LA conduction disturbance, left axis deviation, but no acute ST or T-wave changes were seen. She also had a UA performed, which showed WBCs too numerous to count; again, that was performed today. We do not have the culture and sensitivity back yet. I started her on Levaquin 500 mg daily hoping that the bacteria that grows out on the culture will be sensitive to Levaquin. I put her on 500 mg daily for seven days to cover her for her upcoming urological procedure. The rest of the patient's labs her INR was 1.03, PT was 12 13.7. She also had a white cell count of 7.3, hemoglobin 11.2, hematocrit 34, platelet count 247,000. All of these labs needed to be done 30 days prior to the procedure and they are being done in the appropriate amount of time. Her BUN was 28, creatinine was 1.8, GFR 28.7. Sodium 143, potassium 4.3, calcium 9.1. Chest x-ray was performed, which showed no acute cardiopulmonary disease process and again, UA showed positive nitrites, too numerous to count WBCs, and 2+ bacteria consistent with a urinary tract infection. The patient will be treated for this and we will have to repeat a UA with C&S after the treatment is complete, which will be at least three days prior to her urological procedure. PAST MEDICAL HISTORY: 1. Chronic kidney disease stage III to stage IV. Baseline creatinine 1.6 to 1.8. 2. Dementia without any increased behavioral symptoms. 3. Diabetes mellitus. 4. Hypertensive cardiovascular disease. 5. Diabetes, which is not insulin dependent. 6. Decreased appetite on mirtazapine, but also used for depression. 7. Chronic diabetic neuropathy. PAST SURGICAL HISTORY: 1. Cholecystectomy. 2. Appendectomy. 3. Hernia repair. 4. Two back surgeries. 5. Right oophorectomy. 6. MILAD with USO for menorrhagia in 1976 and 1964. 7. L5-S1 lumbar laminectomy in 1977. 8. Lysis of adhesions, common bile duct exploration, and cholecystectomy in 1978. 9. Laparoscopic sigmoid resection 02/13/2015. This was obtained from a previous history. MEDICATIONS: 1. Atorvastatin 20 mg a day. 2. Gabapentin 400 mg twice a day. 3. Sertraline 50 mg daily. 4. Amlodipine 5 mg daily. 5. Januvia 25 mg a day. 6. Mirtazapine 7.5 mg daily. ALLERGIES: The patient has allergies to SULFA, CODEINE, ERYTHROMYCIN, MEPERIDINE, PENTAZOCINE. FAMILY HISTORY: Father from an [place] at age 69. Siblings are all . Coronary artery disease and cancer. She has four sons. SOCIAL HISTORY: Quit smoking many years ago. Negative for alcohol use. Primary care physician was Dr. Bryce Hou until she was admitted here for permanent placement. PHYSICAL EXAMINATION: GENERAL: Reveals an 80-year-old female who is alert to person, but not to place and time. She is cooperative. HEENT: Head is normocephalic, atraumatic. Sclerae is nonicteric. Extraocular muscles are intact. Throat is without any erythema or exudate. Uvula is midline. NECK: Without any JVD, thyromegaly, adenopathy, or carotid bruits. HEART: S1, S2 without any murmurs, rubs, gallops, heaves, or thrills. LUNGS: Sounds are clear to auscultation without any wheezing, rales, or rhonchi. ABDOMEN: Nondistended. Bowel sounds present in all four quadrants. No organomegaly noted. EXTREMITIES: Without any significant pretibial or ankle pedal edema. NEUROLOGIC: The patient's cranial nerves 3 through 12 were within normal limits. The patient was able to tell me her name and her date of , but was not able to tell me the date. When told that she is having a urologic procedure, she kept asking me over and over again what she is having done, why is she having it done, and then she told me that when she looks outside she sees a bunch of fog and she thinks that she is in a movie with all kinds of fog around her. Like I said, she does have dementia and it was possible suspected late onset Alzheimer's dementia. At this point in time, the patient is not on any medication for this and is not on any antipsychotics. The patient has evidence of dementia or maybe some cognitive decline. As I have seen the patient on multiple visits and she has also been seen by [facility]; she was last seen by them on 10/01/2020, at that point she was able to interact well with them. She was also seen by urology on 09/22/2020, which she was told that she needed a ureteroscopy and left stent placed and at that time, the patient was able to make that decision herself. At this point in time, she has age-related cognitive decline and is able to make her decisions herself. ASSESSMENT AND PLAN: Having said that as far as her preop clearance is concerned, she is medically optimized to undergo this procedure; however, the following medications should be held the morning of her surgery, which includes: Januvia 25 mg a day, gabapentin 400 mg in the morning needs to be held. Her sertraline can be continued 50 mg daily. Amlodipine can be continued 5 mg daily. The patient does not require a preoperative beta-ray. EKG was also stable and was performed on 11/11/2020, certainly within six months of her procedure. Urinary tract infection. The patient will be started on Levaquin 500 mg daily for seven days. We will need to wait for the C&S to come and hopefully the bacteria that grows is sensitive to Levaquin. If not, she will be switched to the appropriate antibiotic, but repeat UA and C&S will need to be done at least three days prior to her surgery. DD: /jacob
[~2020-11-21] VITALS: Ht 152.4 cm; Wt 74.8 kg
[~2020-11-21 10:36] MED LIST changes: +CIPROFLOXACIN 400 MG in IV 1 EA IV ONE; +CONRAY-60 60% 50ML VIAL (Q9961) As Ordered ONE; +LIDOCAINE 1% MDV 20ML VIAL SQ PRN; +LR 1,000 ML IV ONE
[2020-11-21] MEDS ORDERED: PHENYLephrine 500MCG 5ML (100MCG/ML) SYRINGE As Ordered ONE (11:15)
[2020-11-21] MEDS ORDERED: propofoL 200 MG/20 ML VIAL As Ordered ONE (11:15)
[2020-11-21] MEDS ORDERED: LIDOCAINE 2% 100MG/5ML SDV (FOR ANES.) As Ordered ONE (11:15)
[2020-11-21] MEDS ORDERED: ePHEDrine SULFATE 25 MG/5 ML(5MG/ML) SYRINGE As Ordered ONE (11:15)
[2020-11-21] MEDS ORDERED: fentaNYL 100 MCG/2 ML INJECTION (J3010) As Ordered ONE (13:14)
[2020-11-21] MEDS ORDERED: ONDANSETRON 4MG/2ML VIAL As Ordered ONE (13:17)
[2020-11-21] MEDS ORDERED: oxyCODONE 5MG TAB PO PRN (14:00)
[2020-11-21] MEDS ORDERED: LR 1,000 ML IV SCH (14:00)
[2020-11-21] MEDS ORDERED: ONDANSETRON 4MG/2ML VIAL IV PRN (14:00)
[2020-11-21] MEDS ORDERED: fentaNYL 100 MCG/2 ML INJECTION (J3010) IV PRN (14:00)
[2020-11-21] MEDS ORDERED: ACETAMINOPHEN TAB 650MG DOSE (2X325MG) PO PRN (14:10)
[2020-11-21 15:00] VITALS: BP 142/63
--- NOTE | 2020-11-21 15:09 | RO ---
OPERATIVE NOTE DATE OF OPERATION: 11/21/2020 PREOPERATIVE DIAGNOSIS: Left ureteral stone. POSTOPERATIVE DIAGNOSIS: Left ureteral stone, left ureteral stricture. PROCEDURE: Cystoscopy, left ureteroscopy with laser endoureterotomy, basket extraction of stone, left retrograde pyelogram with intraop interpretation of images, left ureteral stent exchange. SURGEON: Mikey Pitt MD SALES LEADER: None. ANESTHESIA: General. OPERATIVE INDICATIONS: This is an 80-year-old female who had left ureteral stent placed several months ago for an obstructing stone and sepsis. She was lost to follow up and came back for treatment. She is brought to the operating room today for treatment. DESCRIPTION OF PROCEDURE: The patient was brought to the operating room and general anesthesia induced. Prophylactic antibiotics were infused. She was placed in dorsal lithotomy position and prepped and draped in usual sterile fashion. Rigid cystoscope was inserted into urethral meatus and advanced into the bladder. Guidewire was advanced up the left collecting system alongside the left ureteral stent. Of note, the left ureteral stent was very calcified. The stent was then removed intact. I then went up the left collecting system with flexible ureteroscope and at the level of the mid ureter there appeared to be a stricture and stone just above it. I utilized a 272 micron laser fiber to perform laser endoureterotomy to open the stricture up some. The stone was then removed using a basket. I then examined the left kidney. The left kidney appeared very dilated but no additional stones were seen. Retrograde pyelogram was performed and was notable for severe left hydronephrosis with no extravasation. I then withdrew the ureteroscope along with access sheath and no additional stones were seen inside the ureter. I then utilized guidewire to advance 7-English x 22-32 cm JJ ureteral stent into the left collecting system. The wire was removed and there were adequate curls of the stent in left renal pelvis and in the bladder. The bladder was emptied of all fluids and this marked the conclusion of the procedure. The patient was taken out of the dorsal lithotomy position, awakened from anesthesia and transported to the recovery room in stable condition. ESTIMATED BLOOD LOSS: 10 mL. COMPLICATIONS: None. SPECIMEN: Kidney stone. PLAN: The patient will follow up in urology clinic in a few weeks for stent removal. It might be beneficial to get a renal ultrasound a few weeks after stent removal given concern for stricture recurrence. [facility]
== END 2020-11-21 15:25 | disposition home or self-care (01) ==
LOC: M SDC 10:36
PROVIDERS: ATTEND Urology
DX: N13.1 Hydronephrosis with ureteral stricture, not elsewhere classified (principal); N20.1 Calculus of ureter; I10 Essential (primary) hypertension; E78.49 Other hyperlipidemia; E11.9 Type 2 diabetes mellitus without complications; K57.92 Diverticulitis of intestine, part unspecified, without perforation or abscess without bleeding; K58.8 Other irritable bowel syndrome; Z86.16 Personal history of COVID-19; Z79.899 Other long term (current) drug therapy; Z88.1 Allergy status to other antibiotic agents; D64.9 Anemia, unspecified; Z88.2 Allergy status to sulfonamides; Z88.5 Allergy status to narcotic agent
CPT/HCPCS: 52332; 52341; 52352; 74420; 82365; 88300; C1769; C1894; C2617; J0744; J2370; J2405; J3010; Q9961

== ENCOUNTER → 2020-11-24 | Outpatient (REF) | payer MEDICARE, OTHER ==
[~2020-11-24] MED LIST changes: -CIPROFLOXACIN 400 MG in IV 1 EA IV ONE; -CONRAY-60 60% 50ML VIAL (Q9961) As Ordered ONE; -LIDOCAINE 1% MDV 20ML VIAL SQ PRN; -LR 1,000 ML IV ONE
[2020-11-24 10:43] LABS: HEMATOCRIT 30.4 % (36.0-47.0); MEAN CORPUSCULAR HGB CONC 32.9 g/dl (32.0-36.5); MEAN CORPUSCULAR VOLUME 91.3 fl (80.0-96.0); PLATELET COUNT, AUTOMATED 238 10^3/uL (150-450); RED BLOOD COUNT 3.33 10^6/uL (4.00-5.40)
[2020-11-24 11:09] LABS: ALBUMIN 2.9 GM/DL (3.2-5.2); CALCIUM LEVEL 8.5 MG/DL (8.8-10.2); CREATININE FOR GFR 1.57 MG/DL (0.55-1.30); GLOMERULAR FILTRATION RATE 33.7 (>32); PHOSPHORUS LEVEL 3.1 MG/DL (2.5-4.9); POTASSIUM SERUM 4.3 MEQ/L (3.5-5.1); URIC ACID 7.1 MG/DL (2.6-6.0)
[2020-11-25 10:59] LABS: APPEARANCE, URINE CLOUDY (CLEAR); BACTERIA, URINE AUTO 1+ (NEGATIVE); BILIRUBIN, URINE AUTO NEGATIVE (NEGATIVE); BLOOD, URINE BLOOD 2+ (NEGATIVE); CALCIUM OXALATE CRYSTALS SMALL; COLOR, URINE YELLOW (YELLOW); GLUCOSE, URINE (UA) AUTO NEGATIVE (NEGATIVE); KETONE, URINE AUTO NEGATIVE (NEGATIVE); LEUKOCYTE ESTERASE, URINE AUTO 3+ (NEGATIVE); MUCUS, URINE SMALL (NEGATIVE); NITRITE, URINE AUTO NEGATIVE (NEGATIVE); PROTEIN, URINE AUTO 2+ mg/dL (NEGATIVE); RBC, URINE AUTO 96 /HPF (0-3); SPECIFIC GRAVITY URINE AUTO 1.013 (1.002-1.035); SQUAMOUS EPITHELIAL CELL UR AU 1 /HPF (0-6); UROBILINOGEN, URINE AUTO 0.2 mg/dL (0.0-2.0); WBC, URINE AUTO 63 /HPF (0-3)
== END ==
PROVIDERS: ATTEND Internal Medicine
DX: N18.9 Chronic kidney disease, unspecified (principal); Z79.899 Other long term (current) drug therapy

== ENCOUNTER → 2021-02-09 | Outpatient (REF) | payer MEDICARE, OTHER ==
[~2021-02-09] MED LIST changes: -CEFD1CAP8 PO; +CEFD300C41 PO; -LISI10TA15 PO; +LISI10TA24 PO; -MAGN400T3 PO; +MAGN400T33 PO
[2021-02-09 12:30] LABS: HEMATOCRIT 33.4 % (36.0-47.0); HEMOGLOBIN 11.1 g/dl (12.0-15.5); MEAN CORPUSCULAR HEMOGLOBIN 29.8 pg (27.0-33.0); MEAN CORPUSCULAR HGB CONC 33.2 g/dl (32.0-36.5); MEAN CORPUSCULAR VOLUME 89.5 fl (80.0-96.0); PLATELET COUNT, AUTOMATED 214 10^3/uL (150-450); RED BLOOD COUNT 3.73 10^6/uL (4.00-5.40); WHITE BLOOD COUNT 6.5 10^3/uL (4.0-10.0)
[2021-02-09 12:55] LABS: CALCIUM LEVEL 8.8 MG/DL (8.8-10.2); CREATININE FOR GFR 1.64 MG/DL (0.55-1.30); POTASSIUM SERUM 4.4 MEQ/L (3.5-5.1)
== END ==
PROVIDERS: ATTEND Physician Assistant
DX: I10 Essential (primary) hypertension (principal)

== ENCOUNTER → 2021-03-25 | Outpatient (REF) | payer MEDICARE, OTHER ==
[~2021-03-25] MED LIST changes: +CEFD1CAP8 PO; -CEFD300C41 PO; +LISI10TA15 PO; -LISI10TA24 PO; +MAGN400T3 PO; -MAGN400T33 PO
[2021-03-25 12:21] LABS: HEMOGLOBIN A1c 6.1 %
[2021-03-25 12:23] LABS: ALT/SGPT 16 U/L (12-78); BILIRUBIN,DIRECT < 0.1 MG/DL (0.0-0.2); BILIRUBIN,TOTAL 0.2 MG/DL (0.2-1.0)
== END ==
PROVIDERS: ATTEND Internal Medicine
DX: E11.9 Type 2 diabetes mellitus without complications (principal)

== ENCOUNTER → 2021-04-15 | Outpatient (REF) | payer MEDICARE, OTHER ==
[2021-04-15 13:26] LABS: THYROID STIMULATING HORMONE 0.638 uIU/ML (0.358-3.740); URIC ACID 7.3 MG/DL (2.6-6.0)
== END ==
PROVIDERS: ATTEND Physician Assistant
DX: Z79.899 Other long term (current) drug therapy (principal)

== ENCOUNTER → 2021-05-25 | Outpatient (REF) | payer MEDICARE, OTHER ==
[~2021-05-25] MED LIST changes: -MAGN400T3 PO; +MAGN400T33 PO
[2021-05-25 16:33] LABS: APPEARANCE, URINE CLEAR (CLEAR); BACTERIA, URINE AUTO NEGATIVE (NEGATIVE); BILIRUBIN, URINE AUTO NEGATIVE (NEGATIVE); BLOOD, URINE BLOOD NEGATIVE (NEGATIVE); COLOR, URINE YELLOW (YELLOW); GLUCOSE, URINE (UA) AUTO NEGATIVE (NEGATIVE); KETONE, URINE AUTO NEGATIVE (NEGATIVE); LEUKOCYTE ESTERASE, URINE AUTO 3+ (NEGATIVE); MUCUS, URINE SMALL (NEGATIVE); NITRITE, URINE AUTO NEGATIVE (NEGATIVE); PROTEIN, URINE AUTO NEGATIVE (NEGATIVE); RBC, URINE AUTO 2 /HPF (0-3); SPECIFIC GRAVITY URINE AUTO 1.012 (1.002-1.035); SQUAMOUS EPITHELIAL CELL UR AU 0 /HPF (0-6); UROBILINOGEN, URINE AUTO 0.2 mg/dL (0.0-2.0); WBC, URINE AUTO 21 /HPF (0-3)
== END ==
PROVIDERS: ATTEND Internal Medicine
DX: N18.30 Chronic kidney disease, stage 3 unspecified (principal)

== ENCOUNTER → 2021-05-25 | Outpatient (REF) | payer MEDICARE, OTHER ==
[2021-05-25 11:07] LABS: BASO % 0.6 % (0.0-1.0); EOS # 0.4 10^3/uL (0.0-0.5); EOS % 6.2 % (0.0-3.0); HEMATOCRIT 35.4 % (36.0-47.0); HEMOGLOBIN 11.8 g/dl (12.0-15.5); LYMPH # 1.4 10^3/uL (1.5-5.0); LYMPH % 21.5 % (24.0-44.0); MEAN CORPUSCULAR HEMOGLOBIN 29.9 pg (27.0-33.0); MEAN CORPUSCULAR HGB CONC 33.3 g/dl (32.0-36.5); MEAN CORPUSCULAR VOLUME 89.6 fl (80.0-96.0); MONO # 0.6 10^3/uL (0.0-0.8); MONO % 9.7 % (2.0-8.0); NEUTROPHILS # 3.9 10^3/uL (1.5-8.5); NEUTROPHILS % 61.5 % (36.0-66.0); PLATELET COUNT, AUTOMATED 223 10^3/uL (150-450); RED BLOOD COUNT 3.95 10^6/uL (4.00-5.40); WHITE BLOOD COUNT 6.3 10^3/uL (4.0-10.0)
[2021-05-25 11:23] LABS: CREATININE FOR GFR 1.46 MG/DL (0.55-1.30); GLOMERULAR FILTRATION RATE 36.6 (>32); PHOSPHORUS LEVEL 3.1 MG/DL (2.5-4.9); POTASSIUM SERUM 4.7 MEQ/L (3.5-5.1)
[2021-05-25 11:39] LABS: PTH INTACT 63.8 PG/ML (18.5-88.0)
== END ==
PROVIDERS: ATTEND Internal Medicine
DX: Z01.89 Encounter for other specified special examinations (principal); Z79.899 Other long term (current) drug therapy

== ENCOUNTER → 2021-06-08 | Outpatient (CLI) | payer MEDICARE, OTHER ==
[~2021-06-08] MED LIST changes: -CEFD1CAP8 PO; +CEFD300C41 PO; -LISI10TA15 PO; +LISI10TA24 PO
== END ==
LOC: M RAD 11:00
PROVIDERS: ATTEND Urology
DX: N28.1 Cyst of kidney, acquired (principal)

== ENCOUNTER → 2021-06-15 | Outpatient (REF) | payer MEDICARE, OTHER ==
[~2021-06-15] MED LIST changes: +CEFD1CAP8 PO; -CEFD300C41 PO; +LISI10TA15 PO; -LISI10TA24 PO
[2021-06-15 16:04] LABS: CALCIUM LEVEL 9.4 MG/DL (8.8-10.2); CREATININE FOR GFR 1.7 MG/DL (0.55-1.30); GLOMERULAR FILTRATION RATE 30.7 (>32); POTASSIUM SERUM 4.2 MEQ/L (3.5-5.1)
== END ==
PROVIDERS: ATTEND Internal Medicine
DX: I10 Essential (primary) hypertension (principal)

== ENCOUNTER → 2021-08-12 | Outpatient (REF) | payer MEDICARE, OTHER ==
[~2021-08-12] MED LIST changes: -CEFD1CAP8 PO; +CEFD300C41 PO; -LISI10TA15 PO; +LISI10TA24 PO
[2021-08-12 15:49] LABS: HEMATOCRIT 36.6 % (36.0-47.0); HEMOGLOBIN 12.3 g/dl (12.0-15.5); MEAN CORPUSCULAR HEMOGLOBIN 30.5 pg (27.0-33.0); MEAN CORPUSCULAR HGB CONC 33.6 g/dl (32.0-36.5); MEAN CORPUSCULAR VOLUME 90.8 fl (80.0-96.0); PLATELET COUNT, AUTOMATED 240 10^3/uL (150-450); RED BLOOD COUNT 4.03 10^6/uL (4.00-5.40); WHITE BLOOD COUNT 7.9 10^3/uL (4.0-10.0)
[2021-08-12 16:16] LABS: CALCIUM LEVEL 9.4 MG/DL (8.8-10.2); CREATININE FOR GFR 1.92 MG/DL (0.55-1.30); GLOMERULAR FILTRATION RATE 26.6 (>32); POTASSIUM SERUM 3.5 MEQ/L (3.5-5.1)
== END ==
PROVIDERS: ATTEND Internal Medicine
DX: I10 Essential (primary) hypertension (principal)

== ENCOUNTER → 2021-08-17 | Outpatient (REF) | payer MEDICARE, OTHER ==
[2021-08-17 11:23] LABS: CALCIUM LEVEL 8.5 MG/DL (8.8-10.2); CREATININE FOR GFR 1.41 MG/DL (0.55-1.30); POTASSIUM SERUM 3.9 MEQ/L (3.5-5.1)
== END ==
PROVIDERS: ATTEND Internal Medicine
DX: N18.9 Chronic kidney disease, unspecified (principal)

== ENCOUNTER → 2021-09-09 | Outpatient (REF) | payer MEDICARE, OTHER ==
[~2021-09-09] MED LIST changes: -OLOP0.1D OU; +OLOP5DRO16 OU
[2021-09-09 13:25] LABS: ALBUMIN 3.5 GM/DL (3.2-5.2); BILIRUBIN,DIRECT 0.1 MG/DL (0.0-0.2); BILIRUBIN,TOTAL 0.9 MG/DL (0.2-1.0); TOTAL PROTEIN 7.3 GM/DL (6.4-8.2)
[2021-09-09 16:34] LABS: HEMOGLOBIN A1c 5.7 %
== END ==
PROVIDERS: ATTEND Internal Medicine
DX: E11.9 Type 2 diabetes mellitus without complications (principal)

== ENCOUNTER → 2021-11-11 | Outpatient (REF) | payer MEDICARE, OTHER ==
[2021-11-11 13:04] LABS: HEMATOCRIT 35.6 % (36.0-47.0); HEMOGLOBIN 12.1 g/dl (12.0-15.5); MEAN CORPUSCULAR HEMOGLOBIN 30.6 pg (27.0-33.0); MEAN CORPUSCULAR VOLUME 89.9 fl (80.0-96.0); PLATELET COUNT, AUTOMATED 228 10^3/uL (150-450); RED BLOOD COUNT 3.96 10^6/uL (4.00-5.40)
[2021-11-11 13:29] LABS: CALCIUM LEVEL 9.6 MG/DL (8.8-10.2); CREATININE FOR GFR 1.47 MG/DL (0.55-1.30); GLOMERULAR FILTRATION RATE 36.2 (>32); POTASSIUM SERUM 4.4 MEQ/L (3.5-5.1)
== END ==
PROVIDERS: ATTEND Internal Medicine
DX: I10 Essential (primary) hypertension (principal)

== ENCOUNTER → 2021-11-23 | Outpatient (REF) | payer MEDICARE, OTHER ==
[2021-11-23 10:16] LABS: BASO # 0.1 10^3/uL (0.0-0.2); BASO % 0.9 % (0.0-1.0); EOS # 0.3 10^3/uL (0.0-0.5); EOS % 3.8 % (0.0-3.0); HEMATOCRIT 38.9 % (36.0-47.0); HEMOGLOBIN 13.1 g/dl (12.0-15.5); LYMPH # 1.6 10^3/uL (1.5-5.0); LYMPH % 24.7 % (24.0-44.0); MEAN CORPUSCULAR HEMOGLOBIN 30.8 pg (27.0-33.0); MEAN CORPUSCULAR HGB CONC 33.7 g/dl (32.0-36.5); MEAN CORPUSCULAR VOLUME 91.5 fl (80.0-96.0); MONO # 0.6 10^3/uL (0.0-0.8); MONO % 9.8 % (2.0-8.0); NEUTROPHILS # 3.9 10^3/uL (1.5-8.5); NEUTROPHILS % 60.5 % (36.0-66.0); PLATELET COUNT, AUTOMATED 229 10^3/uL (150-450); RED BLOOD COUNT 4.25 10^6/uL (4.00-5.40); WHITE BLOOD COUNT 6.5 10^3/uL (4.0-10.0)
[2021-11-23 11:01] LABS: ALBUMIN 3.6 GM/DL (3.2-5.2); CALCIUM LEVEL 9.4 MG/DL (8.8-10.2); CREATININE FOR GFR 1.57 MG/DL (0.55-1.30); GLOMERULAR FILTRATION RATE 33.6 (>32); POTASSIUM SERUM 4.5 MEQ/L (3.5-5.1)
== END ==
PROVIDERS: ATTEND Internal Medicine
DX: I10 Essential (primary) hypertension (principal)

== ENCOUNTER → 2022-02-10 | Outpatient (REF) | payer MEDICARE, OTHER ==
[2022-02-10 11:54] LABS: HEMATOCRIT 37.1 % (36.0-47.0); HEMOGLOBIN 12.5 g/dl (12.0-15.5); MEAN CORPUSCULAR HEMOGLOBIN 30.8 pg (27.0-33.0); MEAN CORPUSCULAR HGB CONC 33.7 g/dl (32.0-36.5); MEAN CORPUSCULAR VOLUME 91.4 fl (80.0-96.0); PLATELET COUNT, AUTOMATED 223 10^3/uL (150-450); RED BLOOD COUNT 4.06 10^6/uL (4.00-5.40); WHITE BLOOD COUNT 8.2 10^3/uL (4.0-10.0)
[2022-02-10 13:47] LABS: CALCIUM LEVEL 9.4 MG/DL (8.8-10.2); CREATININE FOR GFR 1.75 MG/DL (0.55-1.30); GLOMERULAR FILTRATION RATE 29.6 (>32); POTASSIUM SERUM 4.6 MEQ/L (3.5-5.1)
== END ==
PROVIDERS: ATTEND Physician Assistant
DX: I10 Essential (primary) hypertension (principal)

== ENCOUNTER → 2022-02-15 | Outpatient (REF) | payer MEDICARE, OTHER ==
[2022-02-15 12:52] LABS: CALCIUM LEVEL 8.9 MG/DL (8.8-10.2); CREATININE FOR GFR 1.79 MG/DL (0.55-1.30); GLOMERULAR FILTRATION RATE 28.9 (>32); POTASSIUM SERUM 4.8 MEQ/L (3.5-5.1)
== END ==
PROVIDERS: ATTEND Physician Assistant
DX: N17.9 Acute kidney failure, unspecified (principal)

== ENCOUNTER → 2022-02-25 | Outpatient (REF) | payer MEDICARE, OTHER ==
[2022-02-25 18:17] LABS: HEMATOCRIT 37.2 % (36.0-47.0); MEAN CORPUSCULAR HEMOGLOBIN 31.3 pg (27.0-33.0); MEAN CORPUSCULAR HGB CONC 34.9 g/dl (32.0-36.5); MEAN CORPUSCULAR VOLUME 89.6 fl (80.0-96.0); PLATELET COUNT, AUTOMATED 253 10^3/uL (150-450); RED BLOOD COUNT 4.15 10^6/uL (4.00-5.40); WHITE BLOOD COUNT 7.9 10^3/uL (4.0-10.0)
[2022-02-25 19:04] LABS: CALCIUM LEVEL 9.2 MG/DL (8.8-10.2); CREATININE FOR GFR 1.58 MG/DL (0.55-1.30); GLOMERULAR FILTRATION RATE 33.3 (>32); POTASSIUM SERUM 4.7 MEQ/L (3.5-5.1); THYROID STIMULATING HORMONE 0.733 uIU/ML (0.358-3.740)
== END ==
PROVIDERS: ATTEND Physician Assistant
DX: R53.83 Other fatigue (principal)

== ENCOUNTER → 2022-03-01 | Outpatient (CLI) | payer MEDICARE, OTHER, SELFPAY | LOC: M RAD 10:36 | PROVIDERS: ATTEND Physician Assistant | DX: N28.1 Cyst of kidney, acquired (principal); N18.9 Chronic kidney disease, unspecified; N20.0 Calculus of kidney ==

== ENCOUNTER → 2022-03-17 | Outpatient (REF) | payer MEDICARE ==
[2022-03-17 12:49] LABS: ALBUMIN 3.4 GM/DL (3.2-5.2); ALT/SGPT 15 U/L (12-78); BILIRUBIN,DIRECT < 0.1 MG/DL (0.0-0.2); BILIRUBIN,TOTAL 0.3 MG/DL (0.2-1.0); TOTAL PROTEIN 6.8 GM/DL (6.4-8.2)
== END ==
PROVIDERS: ATTEND Physician Assistant
DX: E11.9 Type 2 diabetes mellitus without complications (principal)

== ENCOUNTER → 2022-04-14 | Outpatient (REF) | payer MEDICARE ==
[2022-04-14 13:04] LABS: THYROID STIMULATING HORMONE 1.11 uIU/ML (0.358-3.740); URIC ACID 7.4 MG/DL (2.6-6.0)
== END ==
PROVIDERS: ATTEND Physician Assistant
DX: E03.9 Hypothyroidism, unspecified (principal)

== ENCOUNTER → 2022-05-12 | Outpatient (REF) | payer MEDICARE ==
[2022-05-12 11:16] LABS: BASO % 0.5 % (0.0-1.0); EOS # 0.3 10^3/uL (0.0-0.5); HEMATOCRIT 38.1 % (36.0-47.0); HEMOGLOBIN 13.2 g/dl (12.0-15.5); LYMPH % 26.2 % (24.0-44.0); MEAN CORPUSCULAR HEMOGLOBIN 31.3 pg (27.0-33.0); MEAN CORPUSCULAR HGB CONC 34.6 g/dl (32.0-36.5); MEAN CORPUSCULAR VOLUME 90.3 fl (80.0-96.0); MONO # 0.8 10^3/uL (0.0-0.8); NEUTROPHILS # 4.4 10^3/uL (1.5-8.5); RED BLOOD COUNT 4.22 10^6/uL (4.00-5.40); WHITE BLOOD COUNT 7.6 10^3/uL (4.0-10.0)
[2022-05-12 11:41] LABS: ALBUMIN 3.7 GM/DL (3.2-5.2); CALCIUM LEVEL 9.6 MG/DL (8.8-10.2); CREATININE FOR GFR 2.08 MG/DL (0.55-1.30); GLOMERULAR FILTRATION RATE 24.3 (>32); PHOSPHORUS LEVEL 4.5 MG/DL (2.5-4.9)
[2022-05-12 12:05] LABS: PTH INTACT 113.4 PG/ML (18.5-88.0)
[2022-05-12 12:31] LABS: PLATELET COUNT, AUTOMATED 191 10^3/uL (150-450)
== END ==
PROVIDERS: ATTEND Nurse Practitioner Family
DX: I10 Essential (primary) hypertension (principal)

== ENCOUNTER → 2022-06-24 | Outpatient (CLI) | payer MEDICARE | LOC: M RAD 09:13 | PROVIDERS: ATTEND Nurse Practitioner Family | DX: N17.9 Acute kidney failure, unspecified (principal); R82.71 Bacteriuria; I12.9 Hypertensive chronic kidney disease with stage 1 through stage 4 chronic kidney disease, or unspecified chronic kidney disease ==

== ENCOUNTER → 2022-07-28 | Outpatient (REF) | payer MEDICARE ==
[2022-07-28 11:33] LABS: ALBUMIN 3.6 G/DL (3.2-5.2); CALCIUM LEVEL 9.1 MG/DL (8.3-10.6); CREATININE FOR GFR 1.53 MG/DL (0.55-1.30); GLOMERULAR FILTRATION RATE 34.5 (>32); PHOSPHORUS LEVEL 3.6 MG/DL (2.4-5.1); POTASSIUM SERUM 4.2 MMOL/L (3.5-5.1); PTH INTACT 101.6 PG/ML (18.5-88.0)
== END ==
PROVIDERS: ATTEND Internal Medicine
DX: N18.9 Chronic kidney disease, unspecified (principal)

== ENCOUNTER → 2022-08-11 | Outpatient (REF) | payer MEDICARE ==
[2022-08-11 11:38] LABS: HEMATOCRIT 38.5 % (36.0-47.0); HEMOGLOBIN 12.8 g/dl (12.0-15.5); MEAN CORPUSCULAR HEMOGLOBIN 30.4 pg (27.0-33.0); MEAN CORPUSCULAR HGB CONC 33.2 g/dl (32.0-36.5); MEAN CORPUSCULAR VOLUME 91.4 fl (80.0-96.0); PLATELET COUNT, AUTOMATED 230 10^3/uL (150-450); RED BLOOD COUNT 4.21 10^6/uL (4.00-5.40); WHITE BLOOD COUNT 8.2 10^3/uL (4.0-10.0)
[2022-08-11 12:03] LABS: CALCIUM LEVEL 8.7 MG/DL (8.3-10.6); CREATININE FOR GFR 1.49 MG/DL (0.55-1.30); GLOMERULAR FILTRATION RATE 35.6 (>32); POTASSIUM SERUM 4.7 MMOL/L (3.5-5.1)
== END ==
PROVIDERS: ATTEND Physician Assistant
DX: I10 Essential (primary) hypertension (principal)

== ENCOUNTER → 2022-09-07 | Outpatient (REF) | payer MEDICARE ==
[2022-09-07 14:10] LABS: HEMATOCRIT 35.9 % (36.0-47.0); HEMOGLOBIN 11.9 g/dl (12.0-15.5); MEAN CORPUSCULAR HGB CONC 33.1 g/dl (32.0-36.5); MEAN CORPUSCULAR VOLUME 93.5 fl (80.0-96.0); PLATELET COUNT, AUTOMATED 218 10^3/uL (150-450); RED BLOOD COUNT 3.84 10^6/uL (4.00-5.40); WHITE BLOOD COUNT 9.5 10^3/uL (4.0-10.0)
[2022-09-07 14:31] LABS: CALCIUM LEVEL 8.7 MG/DL (8.3-10.6); CREATININE FOR GFR 1.47 MG/DL (0.55-1.30); GLOMERULAR FILTRATION RATE 36.1 (>32); POTASSIUM SERUM 4.2 MMOL/L (3.5-5.1)
== END ==
PROVIDERS: ATTEND Physician Assistant
DX: R50.9 Fever, unspecified (principal)

== ENCOUNTER → 2022-09-08 | Outpatient (REF) | payer MEDICARE ==
[2022-09-08 13:17] LABS: ALBUMIN 3.2 G/DL (3.2-5.2); BILIRUBIN,DIRECT 0.2 MG/DL (<0.4); BILIRUBIN,TOTAL 0.4 MG/DL (0.3-1.2); TOTAL PROTEIN 6.3 G/DL (5.7-8.2)
[2022-09-08 13:25] LABS: HEMOGLOBIN A1c 6.1 % (4.0-6.0)
== END ==
PROVIDERS: ATTEND Physician Assistant
DX: D64.9 Anemia, unspecified (principal); Z79.899 Other long term (current) drug therapy

== ENCOUNTER → 2022-09-09 | Outpatient (REF) | payer MEDICARE ==
[2022-09-09 11:35] LABS: CALCIUM LEVEL 8.3 MG/DL (8.3-10.6); CREATININE FOR GFR 1.42 MG/DL (0.55-1.30); GLOMERULAR FILTRATION RATE 37.6 (>32); POTASSIUM SERUM 4.7 MMOL/L (3.5-5.1)
== END ==
PROVIDERS: ATTEND Physician Assistant
DX: N18.9 Chronic kidney disease, unspecified (principal)

== ENCOUNTER → 2022-10-11 | Outpatient (REF) | payer MEDICARE ==
[2022-10-11 16:34] LABS: BASO # 0.1 10^3/uL (0.0-0.2); BASO % 0.8 % (0.0-1.0); EOS # 0.3 10^3/uL (0.0-0.5); EOS % 3.3 % (0.0-3.0); HEMATOCRIT 36.9 % (36.0-47.0); HEMOGLOBIN 12.5 g/dl (12.0-15.5); LYMPH # 2.4 10^3/uL (1.5-5.0); LYMPH % 32.4 % (24.0-44.0); MEAN CORPUSCULAR HGB CONC 33.9 g/dl (32.0-36.5); MEAN CORPUSCULAR VOLUME 91.6 fl (80.0-96.0); MONO # 0.7 10^3/uL (0.0-0.8); MONO % 9.6 % (2.0-8.0); NEUTROPHILS % 53.8 % (36.0-66.0); PLATELET COUNT, AUTOMATED 227 10^3/uL (150-450); RED BLOOD COUNT 4.03 10^6/uL (4.00-5.40); WHITE BLOOD COUNT 7.5 10^3/uL (4.0-10.0)
[2022-10-11 19:47] LABS: CREATININE FOR GFR 1.43 MG/DL (0.55-1.30); GLOMERULAR FILTRATION RATE 37.3 (>32); POTASSIUM SERUM 4.6 MMOL/L (3.5-5.1)
== END ==
PROVIDERS: ATTEND Physician Assistant
DX: R41.0 Disorientation, unspecified (principal)

== ENCOUNTER → 2022-10-13 | Outpatient (REF) | payer MEDICARE ==
[2022-10-13 11:35] LABS: THYROID STIMULATING HORMONE 1.177 uIU/ML (0.55-4.78)
[2022-10-13 11:42] LABS: URIC ACID 7.6 MG/DL (3.1-7.8)
== END ==
PROVIDERS: ATTEND Internal Medicine
DX: E03.9 Hypothyroidism, unspecified (principal)

== ENCOUNTER → 2022-11-24 | Outpatient (REF) | payer MEDICARE ==
[~2022-11-24] MED LIST changes: -OLOP5DRO16 OU; +OLOP5DRO17 OU
[2022-11-24 11:02] LABS: BASO # 0.1 10^3/uL (0.0-0.2); BASO % 0.7 % (0.0-1.0); EOS # 0.4 10^3/uL (0.0-0.5); EOS % 5.5 % (0.0-3.0); HEMATOCRIT 35.1 % (36.0-47.0); HEMOGLOBIN 11.7 g/dl (12.0-15.5); LYMPH # 2.1 10^3/uL (1.5-5.0); LYMPH % 31.1 % (24.0-44.0); MEAN CORPUSCULAR HEMOGLOBIN 30.8 pg (27.0-33.0); MEAN CORPUSCULAR HGB CONC 33.3 g/dl (32.0-36.5); MEAN CORPUSCULAR VOLUME 92.4 fl (80.0-96.0); MONO # 0.8 10^3/uL (0.0-0.8); MONO % 11.4 % (2.0-8.0); NEUTROPHILS # 3.4 10^3/uL (1.5-8.5); NEUTROPHILS % 50.9 % (36.0-66.0); PLATELET COUNT, AUTOMATED 219 10^3/uL (150-450); WHITE BLOOD COUNT 6.8 10^3/uL (4.0-10.0)
[2022-11-24 11:31] LABS: ALBUMIN 3.3 G/DL (3.2-5.2); CALCIUM LEVEL 8.4 MG/DL (8.3-10.6); CREATININE FOR GFR 1.62 MG/DL (0.55-1.30); GLOMERULAR FILTRATION RATE 32.3 (>32); MAGNESIUM LEVEL 1.7 MG/DL (1.8-2.4); PHOSPHORUS LEVEL 3.3 MG/DL (2.4-5.1); POTASSIUM SERUM 4.9 MMOL/L (3.5-5.1)
[2022-11-24 11:32] LABS: PTH INTACT 108.4 PG/ML (18.5-88.0)
[2022-11-24 11:36] LABS: TOTAL 25(OH) VITAMIN D 20.4 NG/ML (20.0-100.0)
== END ==
PROVIDERS: ATTEND Physician Assistant
DX: N18.9 Chronic kidney disease, unspecified (principal); Z79.899 Other long term (current) drug therapy

== ENCOUNTER → 2023-02-14 | Outpatient (REF) | payer MEDICARE ==
[~2023-02-14] MED LIST changes: -GABA-283 PO; +GABA-284 PO
[2023-02-14 08:20] LABS: HEMATOCRIT 36.8 % (36.0-47.0); HEMOGLOBIN 12.7 g/dl (12.0-15.5); MEAN CORPUSCULAR HGB CONC 34.5 g/dl (32.0-36.5); MEAN CORPUSCULAR VOLUME 89.8 fl (80.0-96.0); PLATELET COUNT, AUTOMATED 230 10^3/uL (150-450); WHITE BLOOD COUNT 8.2 10^3/uL (4.0-10.0)
[2023-02-14 08:55] LABS: CALCIUM LEVEL 8.9 MG/DL (8.3-10.6); CREATININE FOR GFR 1.27 MG/DL (0.55-1.30); GLOMERULAR FILTRATION RATE 42.8 (>32); POTASSIUM SERUM 4.2 MMOL/L (3.5-5.1)
== END ==
PROVIDERS: ATTEND Physician Assistant
DX: I10 Essential (primary) hypertension (principal)

== ENCOUNTER → 2023-03-30 | Outpatient (REF) | payer MEDICARE ==
[~2023-03-30] MED LIST changes: -MIRT-62 PO; +MIRT-88 PO
[2023-03-30 11:06] LABS: BASO % 0.6 % (0.0-1.0); EOS # 0.3 10^3/uL (0.0-0.5); EOS % 4.4 % (0.0-3.0); HEMATOCRIT 37.8 % (36.0-47.0); HEMOGLOBIN 12.9 g/dl (12.0-15.5); LYMPH # 1.8 10^3/uL (1.5-5.0); MEAN CORPUSCULAR HEMOGLOBIN 30.9 pg (27.0-33.0); MEAN CORPUSCULAR HGB CONC 34.1 g/dl (32.0-36.5); MEAN CORPUSCULAR VOLUME 90.6 fl (80.0-96.0); MONO # 0.7 10^3/uL (0.0-0.8); MONO % 10.2 % (2.0-8.0); NEUTROPHILS # 3.8 10^3/uL (1.5-8.5); NEUTROPHILS % 57.3 % (36.0-66.0); PLATELET COUNT, AUTOMATED 233 10^3/uL (150-450); RED BLOOD COUNT 4.17 10^6/uL (4.00-5.40); WHITE BLOOD COUNT 6.6 10^3/uL (4.0-10.0)
[2023-03-30 11:26] LABS: HEMOGLOBIN A1c 5.6 % (4.0-6.0)
[2023-03-30 11:57] LABS: ALBUMIN 3.5 G/DL (3.2-5.2); BILIRUBIN,DIRECT 0.1 MG/DL (<0.4); BILIRUBIN,TOTAL 0.5 MG/DL (0.3-1.2); CALCIUM LEVEL 9.1 MG/DL (8.3-10.6); CREATININE FOR GFR 1.53 MG/DL (0.55-1.30); GLOMERULAR FILTRATION RATE 34.5 (>32); PHOSPHORUS LEVEL 3.4 MG/DL (2.4-5.1); POTASSIUM SERUM 4.7 MMOL/L (3.5-5.1); TOTAL PROTEIN 6.7 G/DL (5.7-8.2)
[2023-03-30 13:59] LABS: MAGNESIUM LEVEL 1.8 MG/DL (1.8-2.4)
[2023-03-30 15:28] LABS: PTH INTACT 95.4 PG/ML (18.5-88.0)
== END ==
PROVIDERS: ATTEND Physician Assistant
DX: N18.9 Chronic kidney disease, unspecified (principal); Z79.899 Other long term (current) drug therapy

== ENCOUNTER → 2023-04-13 | Outpatient (REF) | payer MEDICARE ==
[2023-04-13 11:10] LABS: URIC ACID 7.9 MG/DL (3.1-7.8)
[2023-04-13 11:14] LABS: THYROID STIMULATING HORMONE 1.102 uIU/ML (0.55-4.78)
== END ==
PROVIDERS: ATTEND Internal Medicine
DX: E03.9 Hypothyroidism, unspecified (principal)

== ENCOUNTER → 2023-05-18 | Outpatient (REF) | payer MEDICARE ==
[~2023-05-18] MED LIST changes: -CEFD300C41 PO; +CEFD300C42 PO
[2023-05-18 11:23] LABS: HEMATOCRIT 37.5 % (36.0-47.0); HEMOGLOBIN 12.5 g/dl (12.0-15.5); MEAN CORPUSCULAR HEMOGLOBIN 30.7 pg (27.0-33.0); MEAN CORPUSCULAR HGB CONC 33.3 g/dl (32.0-36.5); MEAN CORPUSCULAR VOLUME 92.1 fl (80.0-96.0); PLATELET COUNT, AUTOMATED 253 10^3/uL (150-450); RED BLOOD COUNT 4.07 10^6/uL (4.00-5.40); WHITE BLOOD COUNT 8.1 10^3/uL (4.0-10.0)
[2023-05-18 11:54] LABS: CALCIUM LEVEL 8.8 MG/DL (8.3-10.6); CREATININE FOR GFR 1.57 MG/DL (0.55-1.30); GLOMERULAR FILTRATION RATE 33.5 (>32); POTASSIUM SERUM 4.2 MMOL/L (3.5-5.1)
== END ==
PROVIDERS: ATTEND Physician Assistant
DX: I10 Essential (primary) hypertension (principal)

== ENCOUNTER → 2023-08-04 | Outpatient (REF) | payer MEDICARE ==
[~2023-08-04] MED LIST changes: +CEFD1CAP9 PO; -CEFD300C42 PO
[2023-08-04 13:54] LABS: BASO # 0.1 10^3/uL (0.0-0.2); BASO % 0.8 % (0.0-1.0); EOS # 0.4 10^3/uL (0.0-0.5); EOS % 4.8 % (0.0-3.0); HEMATOCRIT 37.8 % (36.0-47.0); HEMOGLOBIN 12.8 g/dl (12.0-15.5); LYMPH # 2.6 10^3/uL (1.5-5.0); LYMPH % 33.4 % (24.0-44.0); MEAN CORPUSCULAR HEMOGLOBIN 31.1 pg (27.0-33.0); MEAN CORPUSCULAR HGB CONC 33.9 g/dl (32.0-36.5); MEAN CORPUSCULAR VOLUME 91.7 fl (80.0-96.0); MONO # 0.9 10^3/uL (0.0-0.8); MONO % 11.3 % (2.0-8.0); NEUTROPHILS # 3.8 10^3/uL (1.5-8.5); NEUTROPHILS % 49.4 % (36.0-66.0); PLATELET COUNT, AUTOMATED 248 10^3/uL (150-450); RED BLOOD COUNT 4.12 10^6/uL (4.00-5.40); WHITE BLOOD COUNT 7.6 10^3/uL (4.0-10.0)
[2023-08-04 14:09] LABS: ALBUMIN 3.2 G/DL (3.2-5.2); CALCIUM LEVEL 8.7 MG/DL (8.3-10.6); CREATININE FOR GFR 1.71 MG/DL (0.55-1.30); GLOMERULAR FILTRATION RATE 30.3 (>32); MAGNESIUM LEVEL 1.7 MG/DL (1.8-2.4); POTASSIUM SERUM 4.1 MMOL/L (3.5-5.1)
[2023-08-04 14:10] LABS: PTH INTACT 106.8 PG/ML (18.5-88.0)
[2023-08-04 16:20] LABS: APPEARANCE, URINE HAZY (CLEAR); BACTERIA, URINE AUTO 1+ (NEGATIVE); BILIRUBIN, URINE AUTO NEGATIVE (NEGATIVE); BLOOD, URINE BLOOD NEGATIVE (NEGATIVE); CALCIUM OXALATE CRYSTALS LARGE; COLOR, URINE YELLOW (YELLOW); GLUCOSE, URINE (UA) AUTO NEGATIVE (NEGATIVE); KETONE, URINE AUTO NEGATIVE (NEGATIVE); LEUKOCYTE ESTERASE, URINE AUTO 3+ (NEGATIVE); MUCUS, URINE SMALL (NEGATIVE); NITRITE, URINE AUTO POSITIVE (NEGATIVE); PROTEIN, URINE AUTO NEGATIVE (NEGATIVE); RBC, URINE AUTO 1 /HPF (0-3); SPECIFIC GRAVITY URINE AUTO 1.017 (1.002-1.035); SQUAMOUS EPITHELIAL CELL UR AU 0 /HPF (0-6); UROBILINOGEN, URINE AUTO 0.2 mg/dL (0.0-2.0); WBC, URINE AUTO 51 /HPF (0-3)
== END ==
PROVIDERS: ATTEND Physician Assistant
DX: N18.9 Chronic kidney disease, unspecified (principal)

== ENCOUNTER → 2023-08-17 | Outpatient (REF) | payer MEDICARE ==
[2023-08-17 12:09] LABS: HEMATOCRIT 43.4 % (36.0-47.0); HEMOGLOBIN 14.5 g/dl (12.0-15.5); MEAN CORPUSCULAR HEMOGLOBIN 30.5 pg (27.0-33.0); MEAN CORPUSCULAR HGB CONC 33.4 g/dl (32.0-36.5); MEAN CORPUSCULAR VOLUME 91.2 fl (80.0-96.0); PLATELET COUNT, AUTOMATED 259 10^3/uL (150-450); RED BLOOD COUNT 4.76 10^6/uL (4.00-5.40); WHITE BLOOD COUNT 7.4 10^3/uL (4.0-10.0)
[2023-08-17 12:48] LABS: CALCIUM LEVEL 9.4 MG/DL (8.3-10.6); CREATININE FOR GFR 1.6 MG/DL (0.55-1.30); GLOMERULAR FILTRATION RATE 32.7 (>32); POTASSIUM SERUM 3.7 MMOL/L (3.5-5.1)
== END ==
PROVIDERS: ATTEND Internal Medicine
DX: I10 Essential (primary) hypertension (principal)

== ENCOUNTER → 2023-10-12 | Outpatient (REF) | payer MEDICARE ==
[2023-10-12 14:52] LABS: THYROID STIMULATING HORMONE 1.026 uIU/ML (0.55-4.78)
== END ==
PROVIDERS: ATTEND Internal Medicine
DX: I10 Essential (primary) hypertension (principal)

== ENCOUNTER → 2023-11-16 | Outpatient (REF) | payer MEDICARE ==
[2023-11-16 10:43] LABS: HEMATOCRIT 39.9 % (36.0-47.0); HEMOGLOBIN 13.5 g/dl (12.0-15.5); MEAN CORPUSCULAR HEMOGLOBIN 30.3 pg (27.0-33.0); MEAN CORPUSCULAR HGB CONC 33.8 g/dl (32.0-36.5); MEAN CORPUSCULAR VOLUME 89.5 fl (80.0-96.0); PLATELET COUNT, AUTOMATED 263 10^3/uL (150-450); RED BLOOD COUNT 4.46 10^6/uL (4.00-5.40); WHITE BLOOD COUNT 8.2 10^3/uL (4.0-10.0)
[2023-11-16 11:09] LABS: CALCIUM LEVEL 8.8 MG/DL (8.3-10.6); CREATININE FOR GFR 1.4 MG/DL (0.55-1.30); GLOMERULAR FILTRATION RATE 38.1 (>32); POTASSIUM SERUM 4.5 MMOL/L (3.5-5.1)
== END ==
PROVIDERS: ATTEND Internal Medicine
DX: I10 Essential (primary) hypertension (principal)

== ENCOUNTER → 2023-12-19 | Outpatient (REF) | payer MEDICARE ==
[2023-12-19 12:28] LABS: BASO % 0.6 % (0.0-1.0); EOS # 0.3 10^3/uL (0.0-0.5); EOS % 3.6 % (0.0-3.0); HEMATOCRIT 40.1 % (36.0-47.0); HEMOGLOBIN 13.7 g/dl (12.0-15.5); LYMPH % 28.4 % (24.0-44.0); MEAN CORPUSCULAR HEMOGLOBIN 30.6 pg (27.0-33.0); MEAN CORPUSCULAR HGB CONC 34.2 g/dl (32.0-36.5); MEAN CORPUSCULAR VOLUME 89.7 fl (80.0-96.0); MONO # 0.7 10^3/uL (0.0-0.8); MONO % 9.5 % (2.0-8.0); NEUTROPHILS % 57.8 % (36.0-66.0); PLATELET COUNT, AUTOMATED 249 10^3/uL (150-450); RED BLOOD COUNT 4.47 10^6/uL (4.00-5.40); WHITE BLOOD COUNT 6.9 10^3/uL (4.0-10.0)
[2023-12-19 12:59] LABS: ALBUMIN 3.5 G/DL (3.2-5.2); CALCIUM LEVEL 8.9 MG/DL (8.3-10.6); CREATININE FOR GFR 1.43 MG/DL (0.55-1.30); GLOMERULAR FILTRATION RATE 37.2 (>32); MAGNESIUM LEVEL 1.7 MG/DL (1.8-2.4); PHOSPHORUS LEVEL 3.6 MG/DL (2.4-5.1); POTASSIUM SERUM 4.7 MMOL/L (3.5-5.1)
[2023-12-19 13:00] LABS: TOTAL 25(OH) VITAMIN D 13.5 NG/ML (20.0-100.0)
[2023-12-19 13:59] LABS: PTH INTACT 128.6 PG/ML (18.5-88.0)
== END ==
PROVIDERS: ATTEND Physician Assistant
DX: N18.9 Chronic kidney disease, unspecified (principal)

== ENCOUNTER → 2024-02-13 | Outpatient (REF) | payer MEDICARE ==
[2024-02-13 11:37] LABS: HEMATOCRIT 40.3 % (36.0-47.0); HEMOGLOBIN 13.8 g/dl (12.0-15.5); MEAN CORPUSCULAR HEMOGLOBIN 31.1 pg (27.0-33.0); MEAN CORPUSCULAR HGB CONC 34.2 g/dl (32.0-36.5); MEAN CORPUSCULAR VOLUME 90.8 fl (80.0-96.0); PLATELET COUNT, AUTOMATED 259 10^3/uL (150-450); RED BLOOD COUNT 4.44 10^6/uL (4.00-5.40); WHITE BLOOD COUNT 6.9 10^3/uL (4.0-10.0)
[2024-02-13 11:52] LABS: CREATININE FOR GFR 1.58 MG/DL (0.55-1.30); GLOMERULAR FILTRATION RATE 33.2 (>32); POTASSIUM SERUM 4.6 MMOL/L (3.5-5.1)
== END ==
PROVIDERS: ATTEND Internal Medicine
DX: I10 Essential (primary) hypertension (principal)

== ENCOUNTER → 2024-03-14 | Outpatient (REF) | payer MEDICARE ==
[~2024-03-14] MED LIST changes: +GABA-1490 PO; -GABA600T4 PO
[2024-03-14 12:00] LABS: HEMOGLOBIN A1c 6.4 % (4.0-6.0)
[2024-03-14 12:18] LABS: ALBUMIN 3.5 G/DL (3.2-5.2); ALKALINE PHOSPHATASE 130 U/L (46-116); ALT/SGPT 18 U/L (7.0-40); AST/SGOT 16 U/L (<34); BILIRUBIN,DIRECT < 0.1 MG/DL (<0.4); BILIRUBIN,TOTAL 0.2 MG/DL (0.3-1.2); TOTAL PROTEIN 6.6 G/DL (5.7-8.2)
== END ==
PROVIDERS: ATTEND Internal Medicine
DX: E11.9 Type 2 diabetes mellitus without complications (principal)

== ENCOUNTER → 2024-04-16 | Outpatient (REF) | payer MEDICARE ==
[2024-04-16 10:44] LABS: URIC ACID 8.7 MG/DL (3.1-7.8)
[2024-04-16 10:47] LABS: THYROID STIMULATING HORMONE 0.658 uIU/ML (0.55-4.78)
== END ==
PROVIDERS: ATTEND Internal Medicine
DX: E03.9 Hypothyroidism, unspecified (principal)

== ENCOUNTER → 2024-05-07 | Outpatient (REF) | payer MEDICARE | PROVIDERS: ATTEND Physician Assistant | DX: M10.9 Gout, unspecified (principal) ==

== ENCOUNTER → 2024-05-16 | Outpatient (REF) | payer MEDICARE ==
[2024-05-16 09:46] LABS: HEMATOCRIT 39.6 % (36.0-47.0); HEMOGLOBIN 13.4 g/dl (12.0-15.5); MEAN CORPUSCULAR HEMOGLOBIN 30.6 pg (27.0-33.0); MEAN CORPUSCULAR HGB CONC 33.8 g/dl (32.0-36.5); MEAN CORPUSCULAR VOLUME 90.4 fl (80.0-96.0); PLATELET COUNT, AUTOMATED 266 10^3/uL (150-450); RED BLOOD COUNT 4.38 10^6/uL (4.00-5.40); WHITE BLOOD COUNT 7.5 10^3/uL (4.0-10.0)
[2024-05-16 10:09] LABS: CALCIUM LEVEL 9.4 MG/DL (8.3-10.6); CREATININE FOR GFR 1.41 MG/DL (0.55-1.30); GLOMERULAR FILTRATION RATE 37.8 (>32); POTASSIUM SERUM 4.3 MMOL/L (3.5-5.1)
== END ==
PROVIDERS: ATTEND Internal Medicine
DX: I10 Essential (primary) hypertension (principal)

== ENCOUNTER → 2024-06-27 | Outpatient (REF) | payer MEDICARE ==
[2024-06-27 09:54] LABS: BASO % 0.6 % (0.0-1.0); EOS # 0.4 10^3/uL (0.0-0.5); EOS % 5.7 % (0.0-3.0); HEMATOCRIT 35.4 % (36.0-47.0); HEMOGLOBIN 11.9 g/dl (12.0-15.5); LYMPH # 1.8 10^3/uL (1.5-5.0); LYMPH % 25.6 % (24.0-44.0); MEAN CORPUSCULAR HEMOGLOBIN 30.4 pg (27.0-33.0); MEAN CORPUSCULAR HGB CONC 33.6 g/dl (32.0-36.5); MEAN CORPUSCULAR VOLUME 90.5 fl (80.0-96.0); MONO # 0.8 10^3/uL (0.0-0.8); NEUTROPHILS # 4.1 10^3/uL (1.5-8.5); NEUTROPHILS % 56.8 % (36.0-66.0); PLATELET COUNT, AUTOMATED 243 10^3/uL (150-450); RED BLOOD COUNT 3.91 10^6/uL (4.00-5.40); WHITE BLOOD COUNT 7.2 10^3/uL (4.0-10.0)
[2024-06-27 10:19] LABS: ALBUMIN 3.2 G/DL (3.2-5.2); CALCIUM LEVEL 9.1 MG/DL (8.3-10.6); CREATININE FOR GFR 1.42 MG/DL (0.55-1.30); GLOMERULAR FILTRATION RATE 37.5 (>32); MAGNESIUM LEVEL 1.7 MG/DL (1.8-2.4); POTASSIUM SERUM 4.3 MMOL/L (3.5-5.1)
[2024-06-27 10:35] LABS: TOTAL 25(OH) VITAMIN D 25.6 NG/ML (20.0-100.0)
[2024-06-27 11:05] LABS: PTH INTACT 97.1 PG/ML (18.5-88.0)
== END ==
PROVIDERS: ATTEND Internal Medicine
DX: N18.9 Chronic kidney disease, unspecified (principal); Z79.899 Other long term (current) drug therapy

== ENCOUNTER → 2024-08-15 | Outpatient (REF) | payer MEDICARE ==
[2024-08-15 10:48] LABS: HEMATOCRIT 38.6 % (36.0-47.0); HEMOGLOBIN 13.3 g/dl (12.0-15.5); MEAN CORPUSCULAR HEMOGLOBIN 31.4 pg (27.0-33.0); MEAN CORPUSCULAR HGB CONC 34.5 g/dl (32.0-36.5); PLATELET COUNT, AUTOMATED 279 10^3/uL (150-450); RED BLOOD COUNT 4.24 10^6/uL (4.00-5.40); WHITE BLOOD COUNT 8.8 10^3/uL (4.0-10.0)
[2024-08-15 11:16] LABS: CALCIUM LEVEL 8.9 MG/DL (8.3-10.6); CREATININE FOR GFR 1.65 MG/DL (0.55-1.30); GLOMERULAR FILTRATION RATE 31.5 (>32); POTASSIUM SERUM 4.5 MMOL/L (3.5-5.1)
== END ==
PROVIDERS: ATTEND Internal Medicine
DX: I10 Essential (primary) hypertension (principal)

== ENCOUNTER → 2024-09-03 | Outpatient (REF) | payer MEDICARE ==
[2024-09-03 18:54] LABS: CALCIUM LEVEL 8.9 MG/DL (8.3-10.6); CREATININE FOR GFR 1.49 MG/DL (0.55-1.30); GLOMERULAR FILTRATION RATE 35.4 (>32); POTASSIUM SERUM 4.4 MMOL/L (3.5-5.1)
[2024-09-03 19:18] LABS: BASO % 0.5 % (0.0-1.0); EOS # 0.2 10^3/uL (0.0-0.5); EOS % 2.7 % (0.0-3.0); HEMOGLOBIN 14.1 g/dl (12.0-15.5); LYMPH # 1.9 10^3/uL (1.5-5.0); LYMPH % 25.8 % (24.0-44.0); MEAN CORPUSCULAR HEMOGLOBIN 30.5 pg (27.0-33.0); MEAN CORPUSCULAR HGB CONC 33.6 g/dl (32.0-36.5); MEAN CORPUSCULAR VOLUME 90.7 fl (80.0-96.0); MONO # 0.5 10^3/uL (0.0-0.8); MONO % 6.8 % (2.0-8.0); NEUTROPHILS # 4.7 10^3/uL (1.5-8.5); NEUTROPHILS % 63.9 % (36.0-66.0); PLATELET COUNT, AUTOMATED 231 10^3/uL (150-450); RED BLOOD COUNT 4.63 10^6/uL (4.00-5.40); WHITE BLOOD COUNT 7.3 10^3/uL (4.0-10.0)
== END ==
PROVIDERS: ATTEND Physician Assistant
DX: R41.0 Disorientation, unspecified (principal)

== ENCOUNTER → 2024-09-12 | Outpatient (REF) | payer MEDICARE ==
[2024-09-12 09:38] LABS: ALBUMIN 3.7 G/DL (3.2-5.2); BILIRUBIN,DIRECT 0.1 MG/DL (<0.4); BILIRUBIN,TOTAL 0.4 MG/DL (0.3-1.2); TOTAL PROTEIN 7.3 G/DL (5.7-8.2)
[2024-09-12 09:47] LABS: HEMOGLOBIN A1c 6.5 % (4.0-6.0)
== END ==
PROVIDERS: ATTEND Internal Medicine
DX: E11.9 Type 2 diabetes mellitus without complications (principal)

== ENCOUNTER → 2024-10-17 | Outpatient (REF) | payer MEDICARE ==
[2024-10-17 08:16] LABS: URIC ACID 5.4 MG/DL (3.1-7.8)
[2024-10-17 08:35] LABS: THYROID STIMULATING HORMONE 0.717 uIU/ML (0.55-4.78)
== END ==
PROVIDERS: ATTEND Internal Medicine
DX: E03.9 Hypothyroidism, unspecified (principal)

== ENCOUNTER → 2024-11-14 | Outpatient (REF) | payer MEDICARE ==
[2024-11-14 07:25] LABS: HEMATOCRIT 36.4 % (36.0-47.0); HEMOGLOBIN 12.6 g/dl (12.0-15.5); MEAN CORPUSCULAR HEMOGLOBIN 31.2 pg (27.0-33.0); MEAN CORPUSCULAR HGB CONC 34.6 g/dl (32.0-36.5); MEAN CORPUSCULAR VOLUME 90.1 fl (80.0-96.0); PLATELET COUNT, AUTOMATED 236 10^3/uL (150-450); RED BLOOD COUNT 4.04 10^6/uL (4.00-5.40)
[2024-11-14 07:47] LABS: CALCIUM LEVEL 8.9 MG/DL (8.3-10.6); CREATININE FOR GFR 1.44 MG/DL (0.55-1.30); GLOMERULAR FILTRATION RATE 35.6 (>32); POTASSIUM SERUM 4.5 MMOL/L (3.5-5.1)
== END ==
PROVIDERS: ATTEND Internal Medicine
DX: I10 Essential (primary) hypertension (principal)

== ENCOUNTER → 2025-02-13 | Outpatient (REF) | payer MEDICARE ==
[2025-02-13 10:09] LABS: BASO # 0.1 10^3/uL (0.0-0.2); BASO % 0.6 % (0.0-1.0); EOS # 0.4 10^3/uL (0.0-0.5); EOS % 4.4 % (0.0-3.0); LYMPH # 2.6 10^3/uL (1.5-5.0); LYMPH % 32.5 % (24.0-44.0); MONO # 0.6 10^3/uL (0.0-0.8); MONO % 7.2 % (2.0-8.0); NEUTROPHILS # 4.4 10^3/uL (1.5-8.5); NEUTROPHILS % 55.0 % (36.0-66.0); PLATELET COUNT, AUTOMATED 279 10^3/uL (150-450)
[2025-02-13 10:51] LABS: CALCIUM LEVEL 9.1 MG/DL (8.3-10.6); CARBON DIOXIDE LEVEL 21.0 MMOL/L (20-31); CHLORIDE LEVEL 105.0 MMOL/L (98-107); CREATININE FOR GFR 1.46 MG/DL (0.55-1.30); GLOMERULAR FILTRATION RATE 35.1 (>32); MAGNESIUM LEVEL 1.8 MG/DL (1.8-2.4); PHOSPHORUS LEVEL 3.2 MG/DL (2.4-5.1); POTASSIUM SERUM 4.8 MMOL/L (3.5-5.1); PTH INTACT 109.6 PG/ML (18.5-88.0); SODIUM LEVEL 142.0 MMOL/L (136-145)
== END ==
PROVIDERS: ATTEND Internal Medicine
DX: I10 Essential (primary) hypertension (principal)

== ENCOUNTER → 2025-03-18 | Outpatient (REF) | payer MEDICARE ==
[2025-03-18 12:00] LABS: ESTIMATED AVERAGE GLUCOSE 157.0 MG/DL (60-110)
== END ==
PROVIDERS: ATTEND Internal Medicine
DX: E11.9 Type 2 diabetes mellitus without complications (principal)

== ENCOUNTER → 2025-04-17 | Outpatient (REF) | payer MEDICARE ==
[2025-04-17 12:26] LABS: VITAMIN B12 LEVEL 254.0 PG/ML (211-911)
== END ==
PROVIDERS: ATTEND Internal Medicine
DX: E03.9 Hypothyroidism, unspecified (principal)

== ENCOUNTER → 2025-05-15 | Outpatient (REF) | payer MEDICARE ==
[2025-05-15 12:42] LABS: PLATELET COUNT, AUTOMATED 285 10^3/uL (150-450)
[2025-05-15 13:17] LABS: CALCIUM LEVEL 8.8 MG/DL (8.3-10.6); CARBON DIOXIDE LEVEL 21.0 MMOL/L (20-31); CHLORIDE LEVEL 108.0 MMOL/L (98-107); CREATININE FOR GFR 1.51 MG/DL (0.55-1.30); GLOMERULAR FILTRATION RATE 33.7 (>32); POTASSIUM SERUM 5.0 MMOL/L (3.5-5.1); SODIUM LEVEL 142.0 MMOL/L (136-145)
== END ==
PROVIDERS: ATTEND Internal Medicine
DX: I10 Essential (primary) hypertension (principal)

== ENCOUNTER → 2025-06-14 | Outpatient (REF) | payer MEDICARE | PROVIDERS: ATTEND Internal Medicine | DX: I10 Essential (primary) hypertension (principal); Z53.8 Procedure and treatment not carried out for other reasons ==